=== PATIENT | female | born 1935 | race Caucasian/White ===

== ENCOUNTER 2025-03-21 06:14 | Inpatient (IN) | payer OTHER, SELFPAY ==
[2025-03-21] VITALS (77 sets, daily range): BP systolic 70–156; BP diastolic 38–83; PULSE 88; O2SAT 98; BMI 22.7; BMI 22.1
[2025-03-21] MEDS: CARDIZEM 125 IV (03:29)
[2025-03-21] MEDS: NSS 500 IV (03:30)
[2025-03-21 03:37] LABS: Hematocrit 31.6 % (37.0-47.0); Hemoglobin 10.8 g/dL (12.0-16.0); Mean Corp Hgb Conc. 34.2 g/dL (33.0-37.0); Mean Corpuscular Volume 87.5 fL (81.0-99.0); Nucleated Red Blood Cells % 0 %; Platelet Count 214 10^3/uL (130-400); Red Cell Dist. Width 15.0 % (11.5-14.5)
[2025-03-21 03:57] LABS: COVID-19 Antigen Negative (Negative)
[2025-03-21 04:00] LABS: ALT (SGPT) 73 U/L (0-35); AST (SGOT) 133 U/L (14-36); Albumin 2.5 g/dl (3.5-5.0); Alkaline Phosphatase 118 U/L (38-126); Blood Urea Nitrogen 21 mg/dl (7-17); Calcium 7.7 mg/dl (8.4-10.2); Carbon Dioxide 21 mmol/L (22-30); Chloride 101 mmol/L (98-107); Estimated Creatinine Clearance 27 ml/min; Glucose 216 mg/dl (70-99); Potassium 3.5 mmol/L (3.5-5.1); Sodium 130 mmol/L (135-145); Total Protein 5.1 g/dl (6.3-8.2); eGFR 54.53
[2025-03-21] MEDS: NSS 1000 IV (04:03)
[2025-03-21 04:18] LABS: Troponin I 0.112 ng/ml
--- NOTE | 2025-03-21 04:23 | ED.GENMED ---
History of Present Illness
General
Chief Complaint: Cardiac Symptoms
Source: patient, family (Daughter at bedside) and ambulance crew
Exam Limitations: none
Time Seen by Provider: 03/21/25 03:05
Nursing documentation reviewed up to this point in time: agreed with
History of Present Illness
History of Present Illness:
HISTORY OF PRESENT ILLNESS
The patient is an 89-year-old female with a history of recurrent pneumonia, chronic bronchitis/bronchiectasis, hypertension and atrial fibrillation chronically maintained on Xarelto. She reports that over the past couple of weeks, her heart rate has
been erratic, fluctuating up and down. She was evaluated by her PCP 1 week ago and recommended to stop her sotalol as well as amlodipine due to low heart rate and low blood pressure. She suffered a fall out of bed over 1 week ago and since then
has been complaining of neck pain, chest pain, low back pain, knee pain and underwent outpatient x-rays March 16 consisting of cervical spine, thoracic spine, lumbar spine, chest x-ray and right knee x-ray. X-ray results report no acute fracture.
Chronic interstitial lung disease. Since the fall she has been residing with her daughter locally. Patient normally resides independently in [place].
This evening she developed shaking chills and after daughter consulted with PCP on-call was recommended to take her temperature and she was noted to have a fever of nearly 102 �F. She was given Tylenol at that time.
Then early this morning she got up out of bed to go to the bathroom, daughter accompanying her. While sitting on the toilet patient became quite pale, diaphoretic and unresponsive, daughter states she was staring off into space' no seizure activity
nor fall
Upon EMS arrival patient found to be in rapid A-fib with heart rate 160-190 and hypotensive with systolic blood pressure of 80. Hypoxic with room air pulse ox of 88. For paramedics, patient was awake and alert, oriented x 3.
Given an IV fluid bolus prehospital, Cardizem 10 mg IV bolus.
She describes a persistent cough and a history of pneumonia, stating, 'I have been hospitalized with COVID and pneumonia three times.' Most hospitalizations were at [facility]. She denies chest pain with deep breath, nor with cough,
denies worsening cough, denies productive cough. She does not require oxygen at home.
She denies dysuria and urgency and or hematuria. Appetite has been fair throughout the week.
Tonight with onset of lethargy she developed significant nausea with 1 episode of vomiting.
The patient was previously tested for COVID-19, flu, last week at her PCP office, with all results returning negative.
As above, she has not been taking sotalol nor amlodipine this past week on advice of her PCP. She has however been compliant with daily Xarelto, compliant with her other medications and twice daily nebulizer treatments.
Past History
Past History
ED Past Medical History: Arrthythmia (Atrial fibrillation), COPD (Bronchiectasis), CVA, HTN, NIDDM and Other (Pneumonia, osteoporosis)
Social History
Tobacco: Non-smoker
Alcohol: None
Personal:
Living: alone
Employment: Retired
Family History
Family History: Other (Noncontributory)
Phy Exam
Physical Exam
Physical Exam:
GENERAL: 89-year-old somewhat thin, mildly frail appearing woman. She is bright and alert, oriented x 3, easily communicative and appears in no acute distress. Very mild resting tachypnea noted. Rare brief nonproductive cough is noted.
EYE: pupils equal and reactive
NECK: Supple, no significant adenopathy. No JVD.
ENT: Oral mucosa is dry.
CARDIAC: Irregularly irregular, tachycardic
LUNGS: Mild resting tachypnea, rhonchi and rales bilaterally more pronounced left lower lobe.
ABDOMEN: Soft, without focal tenderness, no r/g, no cvat
NEUROLOGICAL: Alert and oriented, no focal neuro deficits
SKIN: Warm and dry, skin intact.
MUSCULOSKELETAL: Trace pretibial edema bilateral lower extremities, well perfused.
PSYCH: Normal and appropriate interaction.
Sepsis
Sepsis Screening
Sepsis Assessment: Sepsis
Sepsis Screening: Lactate >2mmol/L and Hypotension
Sepsis Screen
Sepsis Screen: Sepsis
Date: 03/21/25
Time: 04:45
Course
Orders/Labs/Results
Orders:
Orders
03/21/25 03:02
EKG [Electrocardiogram (*1)] Urgent
Reason for Study: Palpitations
EKG- Treatment ONCE
03/21/25 03:25
COVID-19 Antigen Urgent
Source: Nasal Swab
Complete Blood Count/With Diff Urgent
Comprehensive Metabolic Panel Urgent
Lactic Acid Urgent
Lipase Urgent
Comment: ADD ON
NT-proBNP Urgent
Troponin I Urgent
Influenza A+B Rapid Molecular Urgent
PATTI Source: Nasal Swab
Specimen Description:
Date Specimen was Collected: 03/21/25
Time Specimen was Collected: 03:22
Respiratory Syncytial Virus Urgent
PATTI Source: Nasal Swab
Specimen Description:
Date Specimen was Collected: 03/21/25
Time Specimen was Collected: 03:22
03/21/25 03:26
Diltiazem 125 mg/125 ml Nss [Cardizem] 125 mg in 125 ml IV NOW
Initial dose in mg/hr, then titrate:: 5
Titrate to keep:: Heart rate 80-100 bpm
Titrate by mg/hr:: 5 mg/hr
Frequency of titrations (minutes):: 15
Maximum dose in mg/hr:: 15
03/21/25 03:28
0.9% Sodium Chloride 500 ml [Nss] 500 ml IV BOLUS
Diltiazem 125 mg/125 ml Nss [Cardizem] 125 mg in 125 ml .ROUTE .STK-MED
CR Chest Portable - 1 View Urgent
Comment:
Reason For Exam: SOB, tachycardia
Reason Study Needs to be Portable: Patient Unstable
03/21/25 03:42
Urinalysis Reflex To Culture Urgent
Date Specimen was Collected: 03/21/25
Time Specimen was Collected: 03:42
03/21/25 04:02
0.9% Sodium Chloride 1000 ml [Nss] 1,000 ml IV BOLUS
03/21/25 04:23
Add On- LAB Urgent
Tests Added?: lipase
03/21/25 04:38
Blood Culture Q30M
PATTI Source: Blood/Venous
Specimen Description:
Blood Culture Q30M
PATTI Source: Blood/Venous
Specimen Description:
03/21/25 04:58
Piperacillin/Tazo 3.375 Gram [Zosyn] 3.375 gram in 50 ml IV NOW
03/21/25 05:04
MRSA Screen Routine
PATTI Source: Nose
Specimen Description:
03/21/25 05:59
Admit/Transfer Patient As Directed
Co-Sign Provider:
Level of Care: Inpatient admission
Assign to:: IMU- Intermediate Care
Physician / Group: Kenny
Diagnosis: Uncontrolled afib
Reason for Hospitalization: Uncontrolled afib, ?sepsis
Expected length of stay greater than two midnights?: Yes
ELOS- Estimated Length of Stay in days: 2
I certify the patient meets the requirements for IP care: Yes
PRN Pain Medication Management As Directed
May give lesser potent ordered pain med per pt: Yes
preference::
Protocol:: Medication orders for pain may be administered in a
manner that supports deferring to patient preference
when the pt is:
- Requesting an ordered lesser potent pain medication.
Least to most potent pain medications are defined
as: acetaminophen < NSAID < tramadol < opioids
(morphine, oxycodone, hydromorphone).
- Requesting a lesser dose of the same medication IF
ORDERED.
- Requesting a less intrusive route of administration
if both routes are prescribed by the provider (PO <
IV).
03/21/25 06:00
Code Status As Directed
Resuscitation Status: Full Code
Abnormal Lab Results
03/21/25
03:25
RBC 3.61 L 10^6/uL
(4.20-5.40)
Hgb 10.8 L g/dL
(12.0-16.0)
Hct 31.6 L %
(37.0-47.0)
RDW 15.0 H %
(11.5-14.5)
MPV 11.2 H fL
(7.4-10.4)
Abs Immat Gran (auto) 0.1 H 10^3/uL
(0-0.05)
Absolute Neuts (auto) 8.4 H 10^3/uL
(1.4-6.5)
Absolute Lymphs (auto) 0.4 L 10^3/uL
(1.2-3.4)
Immature Gran % 0.6 H %
(0-0.5)
Neutrophils % 88.4 H %
(42.2-75.2)
Lymphocytes % 4.5 L %
(20.5-51.1)
Sodium 130 L mmol/L
(135-145)
Carbon Dioxide 21 L mmol/L
(22-30)
BUN 21 H mg/dl
(7-17)
Glucose 216 H mg/dl
(70-99)
Lactic Acid 3.0 H mmol/L
(0.7-2.0)
Calcium 7.7 L mg/dl
(8.4-10.2)
AST 133 H U/L
(14-36)
ALT 73 H U/L
(0-35)
Troponin I 0.112 H* ng/ml
Total Protein 5.1 L g/dl
(6.3-8.2)
Albumin 2.5 L g/dl
(3.5-5.0)
03/21/25 03:25
03/21/25 03:25
Vital Signs
Initial and Last Documented VS:
Initial Vital Signs
Temp Pulse Resp BP Pulse Ox
98.0 F 155 24 84/61 93
03/21/25 03:02 03/21/25 03:02 03/21/25 03:02 03/21/25 03:02 03/21/25 03:02
Last Documented Vital Signs
Temp Pulse Resp BP Pulse Ox
98.0 F 128 40 81/56 92
03/21/25 03:02 03/21/25 05:30 03/21/25 05:30 03/21/25 05:30 03/21/25 05:30
MDM/Problems Addressed
Differential Diagnosis Includes:
DIFFERENTIAL DIAGNOSIS
The Differential Diagnosis includes, in no particular order and is not limited to:
- Atrial Fibrillation with rapid ventricular response
- Traumatic injury following a fall
- Congestive heart failure
- Aspiration pneumonia
- Chronic obstructive pulmonary disease
- Pulmonary embolism
- Drug-induced tachycardia
- Respiratory tract infection
- Pneumonitis
- Musculoskeletal chest pain following trauma.
MDM/Problems Addressed:
PROBLEM LIST
Acute Problems:
- Atrial Fibrillation with Tachycardia
- Recent Fall with Resultant neck, back, chest pain, knee pain
- Cough with Negative Viral Test Results
Chronic Problems:
- Recurrent Pneumonia
- Bronchial Conditions
- Atrial fibrillation
Patient remains somewhat hypotensive with systolic blood pressure 80-100 but she remains bright and alert, easily communicative. Comfortable on nasal cannula oxygen.
Monitor shows atrial fibrillation with rapid ventricular response 140-160. At this point it is unknown if patient is chronically in A-fib versus paroxysmal A-fib.
With history of fever, discontinuing sotalol 1 week ago, concern for compensatory A-fib/tachycardia. Concern for sepsis with tachycardia and hypotension.
There is also concern for potential CHF however no prior history of CHF. PE is less likely, patient has been compliant with Xarelto.
Labs are pending including sepsis workup, troponin, BNP. With fever, cough, history of pneumonia, bronchiectasis will recheck COVID, flu, RSV.
Will initiate IV fluid bolus and Cardizem drip. Consider additional Cardizem bolus if BP acceptable.
At this point we will hold off on urgent cardioversion as I am unsure if patient is chronically in A-fib versus PAF.
Chronic conditions affecting care: DM, HTN, Arrhythmia and COPD
Acute Exacerbation and/or Progression of Chronic Illness: Arrhythmia and COPD
*Radiology
Radiology exam reviewed: preliminary read by ED provider (Chest x-ray shows bilateral interstitial lung disease with patchy infiltrate left lower lobe)
*Pulse Oximetry
SaO2: 95
Nasal Cannula flow liters per minute: 2
Patient hypoxic: yes
*EKG
Interpreted by ED Provider?: Yes
Interpretation: abnormal
Comparison EKG: no comparison EKG present
Rate: tachycardiac
Rhythm: a-fib
[place]: left axis deviation
Interval: normal QT interval
QRS Pattern: left vent hypertrophy
Ischemia: non-specific ST changes
*[employer] Interpretation
Rate: tachycardiac
Interpretation: abnormal
Rhythm: a-fib
*Critical Care Note
Total Time (30-74mins, 75-104mins- exclusive of procedures): 60
comment:
Critical care statement: A total of 60 minutes of critical care time was provided for this patient. This includes management of unstable vital signs, evaluation of the patient at bedside, reviewing the patient's pertinent medical records, discussion
with consultants, review of old EKGs and review of pertinent medical records. This time with separate from time utilized to perform the aforementioned documented procedures
Update Note
Update Note:
With IV fluid bolus and Cardizem drip, A-fib persists but improvement in tachycardia to now 108-140.
Systolic blood pressure 88-100.
Overall patient appears improved, resting comfortably.
Chest x-ray concerning for left lower lobe pneumonia.
Lactic acid elevated at 3.0.
Patient meets sepsis criteria.
Troponin elevated 0.112. Patient currently denies chest pain and EKG shows A-fib with rapid ventricular response, LVH, otherwise no evidence of STEMI.
Will initiate broad-spectrum antibiotics/Zosyn for coverage of pneumonia and admit to hospitalist service.
ED Attending Note
-
Portions of this chart may have been created with voice recognition software.� Occasional wrong word or��sound alike� substitutions may have occurred due to the inherent limitations of voice recognition software.
Discharge Plan
Departure
Patient Disposition: Admit
Date of Disposition: 03/21/25
Time of Disposition: 04:50
Admit to: ICU
Admit to doctor: Renee
Presentation/result/management discussed w/ accepting MD/DO: Hospitalist
Condition: Serious
Discharge Problem:
Atrial fibrillation with RVR, Left lower lobe pneumonia, Sepsis, Elevated troponin
Interventions
Interventions:
*Risk Screen - Suicide Last Done: 03/21/25 03:02
*General Assessment Last Done: 03/21/25 03:02
*Neglect/Abuse Screening Last Done: 03/21/25 03:02
*ED COVID-19 Vaccine History Last Done: 03/21/25 03:02
*ED Influenza Vaccine History Last Done: 03/21/25 03:02
[facility] Fall Risk Assessment Tool Last Done: 03/21/25 03:02
ED- Pulmonary Assessment Last Done: 03/21/25 04:32
ED- Cardiac Assessment Last Done: 03/21/25 04:32
[2025-03-21] MEDS: ZOSYN 50 IV ×4 (05:04→23:27)
--- NOTE | 2025-03-21 05:04 | HPS.HSE ---
Family Physician
-
Family Physician: PHYSICIAN PRIVATE
Chief Complaint
-
Patient with unresponsive episode and tachycardia
History of Present Illness
Patient is a 89-year-old currently unable to provide much history but according to chart has past medical history that is significant for atrial fibrillation on anticoagulation with Xarelto, takes sotalol for antiarrhythmics, and has hypertension,
hyperlipidemia, bhc-rlrrmyk-vpyayzevt diabetes, history of recurrent lung infections and pulmonary disease of uncertain etiology possibly chronic bronchiectasis was brought in by EMS after daughter found her unresponsive at home.
According to the daughter the patient was recently discharged from the hospital but has not been feeling well for some time. She seemed to declined about 1 week ago and was seen by her PMD after she had a fall. During that time she had a ongoing
productive cough and some shortness of breath and was placed on methylprednisone taper. She reportedly had a significant reaction to the prednisone causing her heart rate to be erratic sometimes tachycardic. Prednisone was tapered off quickly. It
was associated with bradycardic episode so her sotalol was discontinued. Amlodipine was also discontinued for low blood pressures. It is unclear whether she was on metoprolol or whether that was started or discontinued at that time. A chest x-ray
at that time shows chronic changes but no new infiltrates. She had no traumatic episode. Although sotalol was discontinued she was continued on Xarelto. Patient appears to have previously been in a normal sinus rhythm earlier in the year. The
daughter reported vital signs that was measured only for 50-67. She had blood pressures of 117/89 on the fourth with a heart rate of 123, 111/61 with a heart rate of 85 on the feet, 99/50 with a heart rate of 110 and 60, 120/60 with a heart rate of
84 on the seventh before she had chills and febrile illness.
Records indicate that she had a recent echocardiogram which showed a EF of 60% and a normal LV. Family knows of no prior history of CHF. She had negative COVID 19 flu and RSV test last week. And she has been staying with her daughter for the last
1 week due to her recent fall and weakness.
According to daughter, patient had shaking chills and feeling unwell. They contacted the physician who asked that they measure her temperature and she was found to have a fever to 101.9. She was given Tylenol and her symptoms improved. However
then found unresponsive and called EMS. When EMS arrived they found to be tachycardic to 190 and in atrial fibrillation. She was given a bolus of Cardizem which reduced the rate to the 160s and 150s. She was also given a small fluid bolus. She
was started on diltiazem drip on arrival in the emergency department.
In the ED when I saw the patient she was somnolent but easily arousable however too fatigued to provide any significant history. Blood pressure ranged from 79-100/ 42-61. She was tachycardic to the 120s to 150s. She was tachypneic to to low 30s.
Temperature was 98.0 and she was satting around 93% on 2 L. ECG shows atrial fibrillation with RVR at a rate of 149. Troponin was elevated at 0.112. BNP was also elevated at 4900. WBC was 9.5 hemoglobin 10.8 platelet of 214. Electrolytes show a
sodium of 130 with potassium of 3.5 bicarb of 21 with a BUN and creatinine of 21 and 1.0 and a glucose of 216.
Lactic acid was 3.0.
Medical History
Past Medical History
Past Medical History: Reports Arrhythmia (Atrial fibrillation), HTN, Hypercholesterolemia, NIDDM and Other (Bronchiectasis)
Past Surgical History: Reports Other (Unable to obtain)
Social History
Tobacco: Non-smoker
Alcohol: None
Drug: None
Living: With Family
Family History
Family History: Not pertinent
Allergies / Home Medications
Allergies reflects when Allergies were last updated in [employer].
Home Medications with original date entered in [employer]
Allergy/Medication List:
Allergies
Allergy/AdvReac Type Severity Reaction Status Date / Time
No Known Allergies Allergy Unverified 03/21/25 03:20
Home Medications
amlodipine 10 mg tablet 10 mg PO DAILY 03/21/25
aspirin 81 mg tablet 81 mg PO DAILY 03/21/25
atorvastatin 40 mg tablet 40 mg PO DAILY 03/21/25
metformin 500 mg tablet 500 mg PO .DINNER 03/21/25
metoprolol tartrate 25 mg tablet 25 mg PO BID 03/21/25
rivaroxaban 15 mg tablet (Xarelto) 15 mg PO DAILY 03/21/25
sotalol 80 mg tablet 80 mg PO DAILY 03/21/25
Review of Systems
-
Unable to obtain full review of systems at this time due to: Acuity
Physical Exam
Vital Signs
Vital Signs
Temp Pulse Resp BP Pulse Ox
98.0 F 151 33 79/42 88
03/21/25 03:02 03/21/25 04:00 03/21/25 04:00 03/21/25 03:55 03/21/25 04:32
Physical Exam
General: Respiratory Distress
HEENT: NormoCephalic, Anicteric, Moist mucous membranes and Oxygen
Respiratory: Crackles (posteriorly up to and above the midlungs, occasional wheeze) and Accessory Resp Muscle Use
Cardiac: S1/S2, Irregular Rhythm and Tachycardia
Breast: Deferred by me
GI: Soft, Non Tender, Non Distended and Normal Bowel Sounds
Rectal: Deferred by Provider
Genito-urinary: Deferred by me
Musculoskeletal: No Clubbing, No Cyanosis, Edema, Left Lower Extremity (Trace to 1+) and Edema, Right Lower Extremity (Trace to 1+)
Skin: Warm
Neuro: Awake and Nonfocal/grossly intact
Hematologic/Lymphatic: No Lymphadenopathy
Psych: Calm
Laboratory Results
-
03/21/25 03:25
03/21/25 03:25
Laboratory Results
Lactic Acid 3.0 mmol/L (0.7-2.0) H 03/21/25 03:25
Total Bilirubin 1.2 mg/dl (0.2-1.3) 03/21/25 03:25
AST 133 U/L (14-36) H 03/21/25 03:25
ALT 73 U/L (0-35) H 03/21/25 03:25
Alkaline Phosphatase 118 U/L (38-126) 03/21/25 03:25
Troponin I 0.112 ng/ml H* 03/21/25 03:25
Data Reviewed
-
Diagnostic Radiology: Image Personally Visualized and interpreted
Medical Tests (Nuc Med, Echo, EKG etc): Image Personally Visualized and interpreted
Lab Data: Labs Reviewed by me
Old Records: Reviewed
Impression/Plan
-
IMPRESSION:
89-year-old with history of atrial fibrillation on anticoagulation, hypertension, hyperlipidemia, history of recurrent pulmonary infections and bronchiectasis who presents to the emergency department in the setting of fever to 101.9 at home,
tachycardia with uncontrolled atrial fibrillation and low blood pressures in the 80s systolic. She has a significant degree of respiratory distress but is only using 2 L of supplemental oxygen to maintain sats of around 93 to 95%. Chest x-ray
shows interstitial changes which could be edema versus chronic lung disease. Also schedule was discontinued about 6 days ago, daughter reports vital signs at home which showed a stable heart rate mostly in the 80s although there was a location of
her heart rate of 123 on March 17. She had stable blood pressure at that time as well. It is unlikely that she has had tachycardia induced heart failure due to chronic atrial fibrillation. It is possible that she does have an acute tachycardia
induced heart failure versus infectious cardiomyopathy exacerbated by a fever and is now in uncontrolled A-fib with hemodynamic compromise. She has elevated BNP and trace peripheral edema suggestive of acute congestive heart failure although recent
echo shows a normal EF of 60% and no valvular abnormality with otherwise normal LV function.
PLAN:
Sepsis with respiratory distress, lactic acidosis, altered mental status possibly secondary to pneumonia but cannot rule out or urinary source at this time
- Admit to IMU
- Status post small bolus in the ambulance but reticent to give additional fluids at this time given x-ray and elevated BNP with trace peripheral edema suggestive of some volume overload and CHF
� Blood culture sent
� Negative viral studies
� Urine cultures pending
� Will start broad-spectrum antibiotics (zosyn started in ED, will continue for now), check Legionella and pneumococcal antigens
- not wheezing, and did not tolerate oral steroids due to poor rate control, can try iv steroids now that she is on diltiazem
Respiratory distress -oxygenating not requiring 2 L, still tachypneic to the 30s. Patient reports being told she had lung crackles all the time suggestive of chronic interstitial lung disease but new onset CHF is also likley.
� Antibiotics, supplemental oxygen and steroids
� Given elevated BNP chest concerns of congestive heart failure possibly due to uncontrolled atrial fibrillation but patient blood pressure cannot tolerate aggressive diuresis at this time
� Due to tachypnea may need BiPAP for increased work of breathing, will monitor for now in IMU
� Given history of bronchiectasis, will consult pulmonary
Uncontrolled atrial fibrillation -Sotalol discontinued by PMD due to bradycardia about 1 week ago. It is unclear whether metoprolol was also discontinued. Patient is anticoagulated on Xarelto
� Continue Xarelto
� Continue diltiazem drip and titrate as tolerated by the blood pressure, will continue at a rate of 5 for now
- Too unstable for cardioversion in the ED, but may be reconsidered, she has been well anticoagulated Xarelto with a last dose given yesterday.
CHF- Elevated BNP, trace edema, crackles. New onset CHF suggested. BP is soft and likely cannot tolerate diuresis
- oxygenation
- hold iv fluids
- pressors if needed to support bp
- echo
- cardiology consult
Elevated troponin -suspect NIMI secondary to underlying illness, hypoxia and uncontrolled tachycardia
- Patient is anticoagulated on Xarelto, last dose at 9pm yesterday
� aspirin 81
� Rate control
� Check PT/INR and trend troponin, if troponin is rising can transition to heparin drip
� Cardiology consultation
Diabetes
� Sliding scale insulin for now
DVT prophylaxis�on anticoagulation
CODE STATUS�
[2025-03-21 05:30] LABS: Lipase 195 U/L (23-300)
--- NOTE | 2025-03-21 08:05 | CON.INTV ---
Consultation
Consultation Request
Date/Time Consultation Requested: 03/21/2025
Date/Time Consultation Performed: 03/21/2025
Requesting Provider: Dr. Soares
Performing Provider: Dr. Jones
Reason for Consultation: Rapid A fib/Hypotension
Medical History
-
Chief Complaint: unresponsive + fast heart rate
History of Present Illness:
89-year-old female with a past medical history of A-fib on Xarelto, hypertension, hyperlipidemia, DM type II, history of ILD with recurrent lung infections and reported chronic bronchiectasis who presented with episode of unresponsiveness. Patient
had recently been hospitalized at outside hospital. Prior to arrival she was not feeling well and saw her PCP after a fall. She had been dealing with a cough + SOB. Placed onto a steroid taper which caused her BG to rise and heart rate to be
erratic. Prednisone quickly tapered off. Sotalol discontinued due to bradycardia. Norvasc discontinued due to hypotension. Patient follows with a correctional officer chief at [facility] with a Dr. Espinoza (per patient). In the ER she was hypotensive to
84/61, tachycardic to 155, respiratory rate 24, and saturating 93% on 2 L/min. INR 4.15, sodium 130, glucose 216, lactate 3.0, troponin 0.112, procalcitonin 0.27, COVID-19 antigen negative, and flu swab negative as well as RSV negative. Blood
cultures were collected. CXR showed retrocardiac opacification due to aspiration versus fibrosis versus pneumonia. Given 1.5 L bolus NS 0.9% in the ER + Zosyn and started on Cardizem drip and admitted to the ICU. Ui Application Developer service consulted for
additional management/recommendations.
Patient seen and evaluated this morning. Currently on 2 L/min nasal cannula saturating 97%, HR labile between 105�120 and BP 100/63. She says she is feeling well, currently denying chest pain, SOB, abdominal pain, nausea, fevers or chills. She
reports that she follows with a correctional officer chief at [facility] (Dr. Espinoza), and she is not exactly sure what chronic lung disease she has but she believes that she was told she has hypersensitivity pneumonitis.
PMHx: A-fib, hypertension, hypercholesterolemia, DM type II, history of bronchiectasis/ILD
PSHx: Non-contributory
Past Medical History
Past Medical History: Other (Above as per HPI)
Past Surgical History: Other (Above as per HPI)
Social History
Tobacco: Non-smoker
Alcohol: None
Drug: None
Living: With Family
Family History
Family History: Reviewed & Not Pertinent
Allergies / Home Medications
Allergies
Allergy/AdvReac Type Severity Reaction Status Date / Time
No Known Allergies Allergy Unverified 03/21/25 03:20
Home Medications
�Medication �Instructions �Recorded �Confirmed �Last Taken �Type
amlodipine 10 mg tablet 10 mg PO DAILY Blood Pressure 03/21/25 03/21/25 2 Weeks Ago History
~03/07/25
aspirin 81 mg tablet 81 mg PO DAILY Heart 03/21/25 03/21/25 Unknown History
Disease/Condition
atorvastatin 40 mg tablet 40 mg PO HS High Cholesterol 03/21/25 03/21/25 Unknown History
budesonide 0.25 mg/2 mL suspension 0.25 mg inhalation R BID 03/21/25 03/21/25 Unknown History
for nebulization Lung/Breathing Issues
cyanocobalamin (vitamin B-12) 1,000 mcg PO DAILY Supplement 03/21/25 03/21/25 Unknown History
1,000 mcg tablet
docusate sodium 100 mg capsule 100 mg PO BIDPRN PRN constipation 03/21/25 03/21/25 Unknown History
(Colace)
ipratropium 0.5 mg-albuterol 3 mg 3 ml inhalation R TID 03/21/25 03/21/25 Unknown History
(2.5 mg base)/3 mL nebulization Lung/Breathing Issues
soln
metformin 500 mg tablet 500 mg PO QPM Diabetes 03/21/25 03/21/25 Unknown History
rivaroxaban 15 mg tablet (Xarelto) 15 mg PO QPM Blood Clot 03/21/25 03/21/25 Unknown History
Prevention/Tx
sotalol 80 mg tablet 80 mg PO DAILY Arrhythmia 03/21/25 03/21/25 2 Weeks Ago History
~03/07/25
thiamine HCl (vitamin B1) 100 mg 100 mg PO DAILY Supplement 03/21/25 03/21/25 Unknown History
tablet
Review of Systems
-
History Source: Patient
All other systems: Negative unless noted
Vitals / Labs / Diagnostic Testing
Vital Signs
Temp Pulse Resp BP Pulse Ox
96.2 F L 103 16 99/74 97
03/21/25 08:46 03/21/25 10:15 03/21/25 10:15 03/21/25 10:15 03/21/25 10:15
Lab Data
03/21/25 09:05
03/21/25 09:05
Laboratory Results
03/21/25
09:05
PT 40.4 H
INR 4.15
APTT 47.1 H
Microbiology
03/21/25 08:21 Urine Legionella Urinary Antigen - Final
Negative for Legionella pneumophila Serogroup 1 antigen.
A negative result does not rule out the possiblity of
Legionella infection due to other serogroups or species of
Legionella. Clinical correlation is recommended.
03/21/25 08:21 Urine Streptococcus pneumoniae Antigen (M - Final
Negative for Streptococcus pneumoniae antigen.
A negative result does not exclude infection with
Streptococcus pneumoniae. Clinical correlation is
recommended.
03/21/25 03:25 Nasal Swab Respiratory Syncytial Virus Ag - Final
Negative for Respiratory Syncytial Virus.
A false negative result may be obtained with a specimen
collected early in the acute phase. If symptoms persist, a
new specimen should be tested.
03/21/25 03:25 Nasal Swab Influenza Types A & B (TRAY) - Final
Negative for Influenza A & B, NAAT
Negative results must be combined with clinical observations
and patient history.
Nucleic Acid Amplification test (NAAT)performed on the
[employer] platform.
Diagnostic Testing:
Physical Exam
-
HEENT: Normocephalic and Anicteric
Cardiovascular: Irregular Rhythm (irregularly irregular), Peripheral Edema (negative) and Other (tachycardic)
Respiratory: Wheeze (negative), Rales (bilateral), Rhonchi (negative) and Non-Labored Respirations
GI: Soft, Non Distended, Non Tender and Normal Bowel Sounds
Neurology: Awake, Alert and Tremors (negative)
Skin: Warm and Dry
General: Respiratory Distress (negative), Comfortable, Fever (negative) and Chills (negative)
Assessment
-
Assessment: 89-year-old female with a past medical history of A-fib on Xarelto, hypertension, hyperlipidemia, DM type II, history of ILD with recurrent lung infections and reported chronic bronchiectasis who presented with episode of
unresponsiveness. Patient had recently been hospitalized at outside hospital. Prior to arrival she was not feeling well and saw her PCP after a fall. She had been dealing with a cough + SOB. Placed onto a steroid taper which caused her BG to
rise and heart rate to be erratic. Prednisone quickly tapered off. Sotalol discontinued due to bradycardia. Norvasc discontinued due to hypotension. Patient follows with a correctional officer chief at [facility] with a Dr. Espinoza (per patient). In the ER
she was hypotensive to 84/61, tachycardic to 155, respiratory rate 24, and saturating 93% on 2 L/min. INR 4.15, sodium 130, glucose 216, lactate 3.0, troponin 0.112, procalcitonin 0.27, COVID-19 antigen negative, and flu swab negative as well as
RSV negative. Blood cultures were collected. CXR showed retrocardiac opacification due to aspiration versus fibrosis versus pneumonia. Given 1.5 L bolus NS 0.9% in the ER + Zosyn and started on Cardizem drip and admitted to the ICU. Ui Application Developer
service consulted for additional management/recommendations.
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
Impression:
#Rapid A-fib requiring Cardizem drip
#Hypotension due to above
#Retrocardiac opacification with concern for aspiration pneumonia in setting of unresponsiveness IT SERVICE TECHNICIAN
#Acute respiratory failure with hypoxia with concern for pneumonia and possible ILD flare
#Anemia
#Hyponatremia
#DM type II c/b hyperglycemia
#Hypomagnesemia
#Transaminitis
#Elevated troponin likely due to demand ischemia in the setting of rapid A-fib
Plan:
- Wean down Cardizem drip and start PO cardizem 30mg QID with holding parameters
- Perhaps she has developed A-fib with RVR as she is now off of sotalol for the past 2 weeks
- Cardiology consulted and recs appreciated
- Follow up echo
- Rate control with goal HR<110
- Replete K>4, Mg>2
- Check TSH with reflex to free T4
- Trend troponin until it peaks - she currently denies chest pain or SOB, and she actually feels improved
- Maintain SpO2 >90-94% while weaning down submental O2 flow rate as tolerated
- prn nebulized bronchodilators - patient not currently bronchospastic
- Continue systemic steroids, weaning down as she clinically improves - given her low BMI, reduce decadron from 4mg IV q8hr to 4mg q12hr
- Maintain euglycemia with goal BG 140-180mg/dL; check A1C
- Obtain medical records from her PCP, in addition to her lung doctor and windshield technician, in addition to previous chest imaging and prior cardiac studies
- Given that she was unresponsive prior to arrival and has a retrocardiac opacity, agree with empiric antibiotics with Zosyn as there is a high likelihood that she aspirated
- Monitor temperature curve and trend WBC
- Follow-up blood cultures; check sputum culture (if patient can produce a decent sample); urine antigens for Legionella + strep pneumonia both negative
- Maintain MAP>65, may need to start vasopressors if MAP<65
- If HR remains elevated despite cardizem gtt, then would start amiodarone gtt dhruv while hypotensive
- Check random cortisol (added to morning labs before decadron was given)
- Trend H/H and transfuse if needed to keep Hb >7-8g/dL; keep plt>10-20k, unless there is concern for bleeding then keep plt>50k
- Incentive spirometer encouraged q1hr while awake
- Early nutrition assuming not on high dose vasopressors given risk of gut ischemia
- Early ambulation if/when clinically stable
- DVT ppx: xarelto
Code status: Full code
The [id number], Shantal (who works as a nurse at a [employer]), was present at bedside, and all questions were answered to her satisfaction.
Continue ICU level of care for this critically ill patient
Patient was seen and evaluated on 03/21/2025 Critical care statement: A total of 40 minutes of critical care time was provided for this patient today. This includes management of unstable vital signs, evaluation of the patient at bedside, reviewing
the patient's pertinent medical records including radiographs, microbiology, laboratory evaluations, and discussion with the primary team, consultants, pharmacy, nutrition, physical therapy, case management, charge nurse, critical care nursing, and
respiratory therapy.
[2025-03-21 08:32] LABS: Urine Character Clear (Clear)
[2025-03-21 08:49] LABS: Urine Red Blood Cell 0-2 /HPF (0-2); Urine Squamous Cell >30 /LPF (Few)
[2025-03-21 08:57] LABS: Glucose - Point of Care 202 mg/dl (70-99)
[2025-03-21 09:23] LABS: Hematocrit 31.5 % (37.0-47.0); Hemoglobin 10.7 g/dL (12.0-16.0); Mean Corp Hgb Conc. 34.0 g/dL (33.0-37.0); Mean Corpuscular Volume 88.0 fL (81.0-99.0); Platelet Count 204 10^3/uL (130-400); Red Cell Dist. Width 15.3 % (11.5-14.5)
[2025-03-21 09:34] LABS: Magnesium 1.5 mg/dl (1.6-2.3)
[2025-03-21 09:35] LABS: APTT 47.1 Sec (23.4-35.0); INR 4.15; PT 40.4 Sec (11.4-14.6)
--- NOTE | 2025-03-21 09:45 | PTCARENOTE ---
Rec'd patient from ED around 0845. Patient alert and oriented. YOMBA SHOSHONE. MAEx4. Afib, 80-110's. Cardizem gtt infusing at 5 mg/hr. BP ranging 90-100/60-70's. +1 edema in b/l ankle. Palpable pulses. Pulse ox 95-97% on 2L nc. Scattered crackles throughout.
MADRID. Occasional, dry cough. +BS. Straight cath'd in ED. Labs sent as ordered.
[2025-03-21 09:59] LABS: Troponin I 0.221 ng/ml
[2025-03-21 10:02] LABS: Procalcitonin 0.27 ng/ml (0.0-0.25)
--- NOTE | 2025-03-21 10:13 | CON.CAR ---
Addendum entered and electronically signed by Cornelius Mendez MD 03/21/25 12:32:
89-year-old woman with a history of atrial fibrillation, who had recently been maintained on sotalol, Xarelto, hypertension, interstitial lung disease, history of carotid stenting and diabetes. Patient has not felt well for the last couple weeks.
Had been on prednisone due to respiratory issues and then it seems as if there was some concerns regarding low heart rates and sotalol was discontinued by PCP. Patient presented yesterday after having an episode of decreased loss of consciousness.
Episode occurred while patient was being assisted in the bathroom patient felt dizzy and shortness of breath and had decreased level of consciousness. Patient felt presyncopal. On initial assessment patient noted to have A-fib with RVR and
associated hypotension. Although also febrile with temp 102. Patient given IV fluids with improvement in blood pressure and placed on IV Cardizem with improvement in heart rates. Patient now admitted to the ICU heart rates in the low 100s on IV
Cardizem. Patient states she feels much better. Not currently reporting shortness of breath.
.
A-fib with RVR. Patient with prior history of A-fib. Patient has been maintained on sotalol for a number of years. There was a brief period after a hospitalization where she was on amiodarone which was then discontinued because she was still in
A-fib posthospitalization and there was concern regarding her underlying lung disease and continued use of amiodarone. Most recently patient has been on sotalol. Heart rate has been relatively slow in sinus rhythm with prior monitor showing average
heart rate of 52 bpm and it seems as if there was concern for even slower heart rates on recent visit with PCP (full details not available). This prompted discontinuation of sotalol and patient presented with A-fib with RVR. Heart rates now
reasonably controlled. I reviewed issues with her primary billing rep who thinks that the patient tends to do better when she is rhythm controlled but thinks we may not be able to use sotalol due to concerns about bradycardia. Based on the above we
will proceed as follows
- Continue with rate control of A-fib using Cardizem
- Continue anticoagulation
- Echocardiogram
- Monitor renal function. As patient recovers we can determine what additional options there are for management of her A-fib. Dofetilide could be a consideration to maintain sinus rhythm and avoid bradycardia. This was raised by her primary
billing rep. However with patient's recent increase in creatinine and most recent QTc I would not start dofetilide at this time. Will continue to discuss options as patient recovers. Follow-up ECG in a.m.
.
Anticoagulation continue anticoagulation with Xarelto
.
? Pneumonia. Reported fever at home greater than 101.
-Patient with underlying lung disease. Extent unclear. Additional management as directed by curtain framer
- Continue antibiotics as directed by hospitalist and pulmonary/critical care
- Monitor blood cultures pending
.
Elevated troponin. Suspect non-SD troponin in setting of infection and A-fib with RVR
- Echo
Original Note:
Consultation
Consultation Request
Date/Time Consultation Requested: 03/21/25 0841
Date/Time Consultation Performed: 03/21/25 1000
Requesting Provider: Dr. Cox
Performing Provider: Shirley PEREZ for Dr. Mendez
Reason for Consultation: AFIB with RVR, elevated troponin, possible CHF
Medical History
-
Chief Complaint: decreased LOC episode
History of Present Illness:
89 y/o female with AFIB on Xarelto (hx persistent, but previously on sotalol- d/ 2 weeks ago per patient due to bradycardia), hypertension, lung disease including ILD, carotid stenosis with L sided stent, and, DM2. She is here for evaluation after
she was being helped to the toilet by her daughter who she is staying with and felt dizzy and SOB and developed decreased LOC. She felt like she might pass out, but reports that she did not. She was seen to be in AFIB with RVR with hypotension. She
was given fluids and IV diltiazem. Additionally, she was having fever (102) and chills at home. Recently, about 2 weeks ago she reports she fell (feet got caught on something). She had some msk pain with this. She saw her PCP. She said they
suggested ER, but she preferred not at the time. She was placed on prednisone recently as well. She reports that her HR was noted to be slow on her O2 monitor so sotalol was stopped by PCP. Amlodipine was also stopped. At the time of my assessment,
she is calm and comfortable with both HR and SBP in 100's. She is feeling much improved. She is admitted for sepsis possibly secondary to PNA. She is on O2 by AR. She has received fluids and ABX. Lactic acid was 3, now normalized, procal elevated as
well. Troponin elevated 0.221; denies any CP. BNP elevated as well, but does not appear obviously volume overloaded to my assessment. Denies hx CHF. Her billing rep is Dr. David ([facility] [place]).
Past Medical History
Past Medical History: Arrhythmias, HTN, Hypercholesterolemia, NIDDM and Other (ILD)
Social History
Living: Other (staying with daughter)
Family History
Family History: Reviewed & Not Pertinent
Allergies / Home Medications
Allergy/AdvReac Type Severity Reaction Status Date / Time
No Known Allergies Allergy Unverified 03/21/25 03:20
�Medication �Instructions �Recorded �Confirmed �Type
amlodipine 10 mg tablet 10 mg PO DAILY Blood Pressure 03/21/25 03/21/25 History
aspirin 81 mg tablet 81 mg PO DAILY Heart 03/21/25 03/21/25 History
Disease/Condition
atorvastatin 40 mg tablet 40 mg PO HS High Cholesterol 03/21/25 03/21/25 History
budesonide 0.25 mg/2 mL suspension 0.25 mg inhalation R BID 03/21/25 03/21/25 History
for nebulization Lung/Breathing Issues
cyanocobalamin (vitamin B-12) 1,000 mcg PO DAILY Supplement 03/21/25 03/21/25 History
1,000 mcg tablet
docusate sodium 100 mg capsule 100 mg PO BIDPRN PRN constipation 03/21/25 03/21/25 History
(Colace)
ipratropium 0.5 mg-albuterol 3 mg 3 ml inhalation R TID 03/21/25 03/21/25 History
(2.5 mg base)/3 mL nebulization Lung/Breathing Issues
soln
metformin 500 mg tablet 500 mg PO QPM Diabetes 03/21/25 03/21/25 History
rivaroxaban 15 mg tablet (Xarelto) 15 mg PO QPM Blood Clot 03/21/25 03/21/25 History
Prevention/Tx
sotalol 80 mg tablet 80 mg PO DAILY Arrhythmia 03/21/25 03/21/25 History
thiamine HCl (vitamin B1) 100 mg 100 mg PO DAILY Supplement 03/21/25 03/21/25 History
tablet
Review of Systems
-
History Source: Patient
All other systems: Negative unless noted
Constitutional: Fever and Chills
Respiratory: Trouble Breathing
Neurological: Dizzy
Physical Exam
Vital Signs
Temp Pulse Resp BP Pulse Ox
96.2 F L 92 34 106/70 94
03/21/25 08:46 03/21/25 09:30 03/21/25 09:30 03/21/25 09:30 03/21/25 09:46
Lab Results
03/21/25 09:05
Troponin I 0.221 ng/ml H* D 03/21/25 09:05
Eej-Z-Cpvpgewcnip Pept 4940 pg/ml 03/21/25 03:25
Physical Exam
General: Well Developed, Well Nourished and No Apparent Distress
HEENT: Normocephalic and Anicteric
Respiratory: Wheezes (right base expiratory) and Crackles (dry L base)
Cardiac: Irregular Rhythm
Musculoskeletal: No Edema
Skin: Warm and Dry
Neuro: AO x 3
Psych: Calm
Impression / Plan
-
Sepsis secondary to possible PNA:
-also assessing for other infectious source
-this diagnosis is threat to life
-on ABX
-management per intensivists/primary team
Persistent AFIB: fast rates in setting of acute illness and off usual medications
-maintained on sotalol as OP, but recently stopped by PCP per patient since HR on her O2 sat monitor read in the 20's per her report- I suspect this could have been erroneous, but will follow telemetry.
-On IV diltiazem, but being changed to PO- monitor rates with this, may need IV
-continue Xarelto- she reports no missed doses
ILD:
-follows with Pulmonary at [facility]
-pulm/intensivists on case
-on O2 by NC
Elevated BNP:
-she does not appear obviously volume overloaded to my assessment; no weight gain, orthopnea, edema
-check echo and monitor volume
-most recent echo 11/26/24: normal LV function EF 60%, no sig valve disease reported
Abnormal troponin:
-acute, non-ischemic myocardial injury in setting of AFIB with RVR and sepsis
-trend to peak
-obtain echo
Data Reviewed
-
EKG: Tracing Personally Visualized and interpreted
Radiology: Report Reviewed by me (CXR: 1. Findings suggestive of moderate interstitial fibrosis. 2. Hazy opacity at the left lung base. Differential diagnosis includes pneumonia, aspiration, and focal interstitial fibrosis.)
Medical Tests (Nuc Med, Echo etc): Report Reviewed by me (Echo ordered and pending)
Labs: Labs Reviewed by me
Old Records: Reviewed (from [employer] link- Dr. David office note 01/12/25- seen by Kathy Sanon NP)
[2025-03-21 10:23] LABS: Blood Urea Nitrogen 23 mg/dl (7-17); Calcium 7.9 mg/dl (8.4-10.2); Carbon Dioxide 25 mmol/L (22-30); Chloride 104 mmol/L (98-107); Estimated Creatinine Clearance 27 ml/min; Glucose 198 mg/dl (70-99); Potassium 3.9 mmol/L (3.5-5.1); Sodium 132 mmol/L (135-145); eGFR 54.53
[2025-03-21] MEDS: NOVOLOG FLEXPEN-LOW RESISTANCE 1 UNITS SC (11:17)
[2025-03-21 11:29] LABS: Glucose - Point of Care 198 mg/dl (70-99)
[2025-03-21] MEDS: DECADRON 4 MG IV ×2 (11:56→20:01)
[2025-03-21] MEDS: MAGNESIUM SULFATE 50 IV (11:56)
[2025-03-21] MEDS: COLACE 100 MG PO (12:05)
[2025-03-21] MEDS: CARDIZEM 30 MG PO ×3 (12:05→23:25)
--- NOTE | 2025-03-21 12:45 | PTCARENOTE ---
PT at bedside. OOB to chair with RW. Pulse ox 98% on 2L nc. Weaned to RA. Oxygen down to mid 80's with ambulation. MADRID. Slow to recover. Utilizing IS frequently. PO Cardizem administered. Cardizem gtt off. Mag repleted. MEAT MANAGER in to assess patient at
bedside. Plan for VSE.
[2025-03-21 13:25] LABS: Cortisol, Random 49.2 ug/dl
--- NOTE | 2025-03-21 13:34 | W.PN.HOSP.TC ---
Today's Communication/Plan
-
Video Swallow, continue antibiotics, echo pending
Assessment / Plan
Assessment / Plan
Impression:
patient is 89-year-old woman with a history of atrial fibrillation on Xarelto, previously maintained on sotalol, hypertension, interstitial lung disease, diabetes, and prior carotid stenting presented after an episode of near-syncope and decreased
responsiveness. According to her daughter, the patient had been feeling unwell for approximately one week following a recent hospitalization and fall. She was treated with a methylprednisolone taper for respiratory symptoms but developed erratic
heart rates, including bradycardia, leading to discontinuation of sotalol and amlodipine. Over the past several days, she experienced intermittent fevers, chills, and worsening fatigue. On the day of admission, she was found unresponsive at home;
EMS noted atrial fibrillation with rapid ventricular response (HR ~190) and hypotension. She received IV fluids and a bolus of diltiazem, followed by a continuous infusion, with improvement in heart rate. In the ED, she remained somnolent but
arousable, tachycardic (HR 120�150), hypotensive (BP 79�100/42�61), tachypneic (RR low 30s), and hypoxic (SpO? 93% on 2 L). She was febrile earlier at home (101.9�F) but afebrile on arrival. Labs revealed elevated troponin (0.112), BNP (4900),
lactic acid (3.0), mild hyponatremia (Na 130), and anemia (Hgb 10.8). ECG confirmed atrial fibrillation with RVR. Chest imaging showed chronic changes without acute infiltrates. She was admitted to the ICU for rate control and hemodynamic monitoring.
When I saw the patient in the ER her blood pressure and heart rate improved, and she is more awake and oriented.
Assessment/plan:
Atrial Fibrillation with Rapid Ventricular Response
Patient with a history of atrial fibrillation previously managed with sotalol, which was discontinued recently due to bradycardia.
She presented with A-fib with RVR and hypotension.
Heart rate is now reasonably controlled on IV diltiazem.
Continue rate control with Cardizem drip, titrate as tolerated by blood pressure.
Maintain anticoagulation with Xarelto.
Obtain echocardiogram (pending)
monitor renal function.
Cardiology consulted appreciate input.
Sepsis with acute organ dysfunction
Sepsis secondary to pneumonia with acute organ dysfunction in form of acute respiratory failure/acute metabolic encephalopathy/lactic acidosis
Initially plan was to admit to IMU for close monitoring. But secondary to hypotension. Patient admitted to the ICU.
Reported fever >101�F at home in the setting of chronic lung disease.
Continue broad-spectrum antibiotic
(Zosyn started in ED), monitor blood cultures, and check Legionella and pneumococcal antigens.
Pulmonary consultation requested. Consider IV steroids now that rate control has improved.
Mental status improved.
Lactic acid resolved
Acute respiratory failure
Patient remains tachypneic with RR in the 30s, requiring supplemental oxygen.
Elevated BNP and crackles suggest new-onset CHF, likely precipitated by uncontrolled atrial fibrillation.
Avoid aggressive diuresis due to soft blood pressure.
Monitor for need of BiPAP. Pulmonary consulted for underlying bronchiectasis and interstitial lung disease.
Acute congestive Heart Failure (nonspecific type, combined)
New onset suspected based on elevated BNP, trace edema, and crackles.
Hold IV fluids, provide oxygen, and consider pressors if hypotension persists.
Echocardiogram pending
Cardiology consulted.
Elevated Troponin
Likely non-ischemic myocardial injury secondary to sepsis, hypoxia, and tachycardia.
Continue anticoagulation,
continue to trend troponin.
Cardiology following.
History of diabetes mellitus
Continue home medication
Insulin sliding scale
Diabetic diet
Hemoglobin A1c
CODE STATUS: Full code
DVT prophylaxis: Xarelto
Diet: DM diet
Disposition: Video Swallow, continue antibiotics, echo pending
Total time spent on today's encounter was 65 minutes which included time spent in counseling the patient/family regarding diagnosis and treatment plan as listed above, goals of care, and symptom management. Case was discussed with nursing staff,
specialists, and care coordinators/case management. All labs and imaging personally reviewed by me. Remainder the time spent in detailed review of previous records, lab data, imaging, and other medical provider documentation.
Anticipated Discharge: > 48 hours
Subjective/Interval History
-
Date of Service: March 21, 2025
Patient seen and examined at bedside, denies any chest pain , patient still in A-fib, she stated that her shortness of breath Improved, no abdominal pain, no nausea, no vomiting, no diarrhea or constipation.
lower extremity edema improved.
Objective Data
-
Labs:
Laboratory Results
03/21/25 03/21/25
03:25 09:05
WBC 9.5 7.2
Hgb 10.8 L 10.7 L
Hct 31.6 L 31.5 L
Plt Count 214 204
PT 40.4 H
INR 4.15
APTT 47.1 H
Sodium 130 L 132 L
Potassium 3.5 3.9
Chloride 101 104
Carbon Dioxide 21 L 25
BUN 21 H 23 H
Creatinine 1.0 1.0
Glucose 216 H 198 H
Calcium 7.7 L 7.9 L
Total Bilirubin 1.2
AST 133 H
ALT 73 H
Alkaline Phosphatase 118
Vital Signs:
Vital Signs
Temp Pulse Resp BP Pulse Ox
96.2 F L 106 21 93/57 94
03/21/25 08:46 03/21/25 13:00 03/21/25 13:00 03/21/25 13:00 03/21/25 13:00
I&O
03/20/25 03/21/25 03/22/25
06:59 06:59 06:59
Intake Total 360 / 360
Balance 360 / 360
Physical Exam
-
General: Well Developed, Well Nourished, No Apparent Distress and Comfortable
HEENT: Normocephalic, Atraumatic, Moist Mucous Membranes, No Ptosis, PERRLA and Nose Appears Normal
Respiratory: Rales, Rhonchi, Crackles and Non Labored Respirations
Cardiac: S1/S2 and Irregular Rhythm
Breast: Deferred by me
GI: Soft, Nontender, Nondistended and Normal Bowel Sounds
Genito-urinary: No Costovertebral Tender
Musculoskeletal: No Clubbing, No Cyanosis and No Edema
Skin: Warm
Neuro: Awake, Alert, Oriented, AO x 3 and No Motor Deficits
Psych: Calm
Data Reviewed
-
Diagnostic Radiology: Image personally visualized and interpreted and Report Reviewed by me
CT Scan: Image personally visualized and interpreted and Report Reviewed by me
Ultrasound: Image personally visualized and interpreted and Report Reviewed by me
MRI: Image personally visualized and interpreted and Report Reviewed by me
Medical Tests (Nuc Med, Echo etc): Image personally visualized and interpreted and Report Reviewed by me
Labs: Labs Reviewed by me
Old Records: Reviewed
--- NOTE | 2025-03-21 14:01 | CM ---
Reviewed chart and met with pt, her daughter and JOCELYN bedside in ICU. Pt lives alone in 2 story plus basement home in [place], total of [address], does have railings, has stair glide to second floor bedroom and bath.
Independent in ADLs, personal care and ambulation at baseline. Does have RW but does not normally use it,per daughter her balance has been poor recently.
Pt had a fall last Friday and has been staying with her daughter in [place]. Her house is split level, 1 ELKE, 3 steps down to FR, 3 steps up to kitchen and 3 more steps up to BR level. There is a half bath on FR level.
Confirms prescription coverage.
Hx VN in past and also SNF this past summer, ?[facility] in [place].
Pt's goal is to return to her home. Son German is POA, .
PCP: Chau Escalona
Pharmacy: [facility], would use [facility] in [place] while she is staying with her daughter.
CM will continue to follow for all discharge planning needs.
[2025-03-21] MEDS: DUONEB INH (14:10)
--- NOTE | 2025-03-21 14:13 | PTOTSP ---
Speech Therapy Evaluation:
Pt with chronic risk factors of dysphagia including hx of recurrent lung infections and pulmonary disease of uncertain etiology. Per daughter, pt with hx of choking events. VSE at OSH within the last year unremarkable. Now admitted with concern for
PNA/aspiration. WBC WNL and pt on room air, however procalcitonin elevated.
Recommend:
1. Diet downgrade to IDDSI Level 6 (soft and bite sized solids), continue thin liquids
2. Medications as tolerated
3. Strict aspiration and reflux precautions
4. VSE (to be completed this afternoon)
5. Further recommendations pending VSE
[2025-03-21] MEDS: NOVOLOG FLEXPEN-LOW RESISTANCE 2 UNITS SC (15:19)
[2025-03-21 15:30] LABS: Glucose - Point of Care 238 mg/dl (70-99)
--- NOTE | 2025-03-21 15:51 | PTOTSP ---
Speech Therapy VSE:
Patient presents with mild oropharyngeal dysphagia. Trace transient laryngeal penetration (PAS 2) occurred with thin liquids via cup. Deep laryngeal penetration (PAS 5) occurred with consecutive straw sips. No aspiration seen throughout the study.
Mild-moderate pharyngeal residue present, which patient was able to clear with subsequent swallows. Esophageal screen unremarkable per PA-C.
Recommend:
1. Continue IDDSI Level 6 (soft and bite sized solids) and thin liquids
2. Meds as tolerated
3. Strategies: Upright all meals, small bites/sips, single sips only (no consecutive sips), slow rate, chew thoroughly, dry swallows to increase pharyngeal clearance
4. Strict aspiration precautions
5. Supervision with meals
6. BARREL BRIDGE ASSEMBLER to follow to provide further education re: results and recommendations following VSE, to assess toelrance of diet, and to provide instruction in aspiration precautions/strategies
[2025-03-21 16:32] LABS: Troponin I 0.160 ng/ml
--- NOTE | 2025-03-21 16:45 | PTCARENOTE ---
VSE completed. Patient placed back in bed for echo. Resting comfortably. No other changes. Afib, rate in the 90-110's.
[2025-03-21] MEDS: NOVOLOG FLEXPEN-LOW RESISTANCE 3 UNITS SC (17:22)
[2025-03-21 17:34] LABS: Glucose - Point of Care 279 mg/dl (70-99)
[2025-03-21] MEDS: XARELTO 15 MG PO (18:14)
[2025-03-21] MEDS: DUONEB 3 ML INH (19:59)
[2025-03-21] MEDS: PULMICORT 0.25 MG INH (19:59)
[2025-03-21] MEDS: NOVOLIN N vial 0.08 UNITS SC (20:00)
--- NOTE | 2025-03-21 20:00 | PTCARENOTE ---
Pt ambulated to bathroom with previous shift nurse with rolling walker. Patient did fine on her feet but once in bathroom became extremely dyspneic/anxious/coughing fit. Pt felt as though she had something stuck in her throat. Was able to clear.
However, patient guided back to bed and given respiratory treatment. Bedside commode provided for further toileting needs. Will monitor.
[2025-03-21 20:11] LABS: Glucose - Point of Care 327 mg/dl (70-99)
[2025-03-22] VITALS (24 sets, daily range): BP systolic 92–144; BP diastolic 50–117; BMI 22.5
--- NOTE | 2025-03-22 00:03 | PTCARENOTE ---
Pt alert and oriented, pleasant and cooperative. Minimal assist to BSC for toileting needs. Tachycardia with activity, controlled 80-90 at rest with cardizem on board. Pulses palpable, no edema. Nasal cannula, 96%. Rales throughout, IS encouraged
and compliant. Tolerating diet. Voids in commode. Will monitor. Call ty within reach.
--- NOTE | 2025-03-22 00:05 | PTCARENOTE ---
Pt alert and oriented, cooperative. Afebrile. Afib on monitor. Pulses palpable. Lungs with rales throughout, compliant with IS. 96% on 3L. Tolerating diet. OOB to BSC for toileting needs. Call ty within reach. Will monitor.
--- NOTE | 2025-03-22 00:30 | PTCARENOTE ---
No change in previous assessment. Will monitor.
--- NOTE | 2025-03-22 04:30 | PTCARENOTE ---
AM labs sent and pending. Bladder scan 600ml, pt assisted to BSC, maximo to void without difficulty but did not have urge to go prior to bladder scan. Otherwise no change in previous assessment. AM EKG completed. Will monitor.
[2025-03-22] MEDS: ZOSYN 50 IV ×3 (04:45→17:22)
[2025-03-22 05:08] LABS: Hematocrit 30.9 % (37.0-47.0); Hemoglobin 10.1 g/dL (12.0-16.0); Mean Corp Hgb Conc. 32.7 g/dL (33.0-37.0); Mean Corpuscular Volume 89.0 fL (81.0-99.0); Platelet Count 213 10^3/uL (130-400); Red Cell Dist. Width 15.0 % (11.5-14.5)
[2025-03-22 05:40] LABS: Blood Urea Nitrogen 28 mg/dl (7-17); Calcium 8.4 mg/dl (8.4-10.2); Carbon Dioxide 25 mmol/L (22-30); Chloride 102 mmol/L (98-107); Estimated Creatinine Clearance 25 ml/min; Glucose 257 mg/dl (70-99); Potassium 3.4 mmol/L (3.5-5.1); Sodium 133 mmol/L (135-145); eGFR 48.63
[2025-03-22] MEDS: PULMICORT 0.25 MG INH ×2 (07:20→19:53)
[2025-03-22] MEDS: DUONEB 3 ML INH ×2 (07:20→19:53)
[2025-03-22 08:01] LABS: Magnesium 2.2 mg/dl (1.6-2.3)
[2025-03-22 08:04] LABS: Glucose - Point of Care 267 mg/dl (70-99)
--- NOTE | 2025-03-22 08:04 | W.PN.INTV ---
Today's Communication / Plan
Recommendations
Heart rate control with goal <110
Replete K>4, Mg>2
Uptitrate Cardizem as needed
Change DuoNebs from TID to BID to see if this also improves HR
Goal BG 140�180
Continue NOAC
Continue ICU level of care and once HR is better controlled then will downgrade out of ICU at that time; she is thankfully off Cardizem infusion and has not required amiodarone drip
Assessment
-
Assessment: 89-year-old female with a past medical history of A-fib on Xarelto, hypertension, hyperlipidemia, DM type II, history of ILD with recurrent lung infections and reported chronic bronchiectasis who presented with episode of
unresponsiveness. Patient had recently been hospitalized at outside hospital. Prior to arrival she was not feeling well and saw her PCP after a fall. She had been dealing with a cough + SOB. Placed onto a steroid taper which caused her BG to
rise and heart rate to be erratic. Prednisone quickly tapered off. Sotalol discontinued due to bradycardia. Norvasc discontinued due to hypotension. Patient follows with a grain elevator superintendent at [place] with a Dr. Espinoza (per patient). In the ER
she was hypotensive to 84/61, tachycardic to 155, respiratory rate 24, and saturating 93% on 2 L/min. INR 4.15, sodium 130, glucose 216, lactate 3.0, troponin 0.112, procalcitonin 0.27, COVID-19 antigen negative, and flu swab negative as well as
RSV negative. Blood cultures were collected. CXR showed retrocardiac opacification due to aspiration versus fibrosis versus pneumonia. Given 1.5 L bolus NS 0.9% in the ER + Zosyn and started on Cardizem drip and admitted to the ICU. Environmental Designer
service consulted for additional management/recommendations.
Chronic conditions [employer]: A-fib, hypertension, hypercholesterolemia, DM type II, history of bronchiectasis/ILD
Impression:
#Rapid A-fib requiring Cardizem drip - now off cardizem gtt but still in rapid A-fib
#Hypotension due to above
#Retrocardiac opacification with concern for aspiration pneumonia in setting of unresponsiveness [employer]
#Acute respiratory failure with hypoxia with concern for pneumonia and possible ILD flare
#Anemia
#Hyponatremia
#DM type II c/b hyperglycemia
#Hypomagnesemia
#Transaminitis
#Elevated troponin likely due to demand ischemia in the setting of rapid A-fib
Plan:
- Weaned off down Cardizem drip on 03/21; continue PO cardizem, up-titrating as needed to maintain rate control - defer to cardiology
- Perhaps she has developed A-fib with RVR as she is now off of sotalol for the past 2 weeks
- Cardiology consulted and recs appreciated
- Echo performed on 03/21/2025 showed preserved LVEF at 55-60% with severe TR and estimated PASP at 52 mmHg (no prior study available for comparison)
- Rate control with goal HR<110
- Replete K>4, Mg>2
- TSH WNL at 1.1
- Troponin peaked at 0.221 on 03/21 � no longer need to continue trending at this time - she currently denies chest pain or SOB, and she actually feels improved
- Maintain SpO2 >90-94% while weaning down submental O2 flow rate as tolerated
- prn nebulized bronchodilators - patient not currently bronchospastic
- Change scheduled DuoNebs TID to BID to see if this helps her tachycardia (her home regimen is TID)
- Continue systemic steroids, weaning down as she clinically improves - given her low BMI, reduced decadron from 4mg IV q8hr to 4mg q12hr on 03/21 - -> now reduce to prednisone taper
- Maintain euglycemia with goal BG 140-180mg/dL; A1C: 7.5 on 03/22/2025
- Obtain medical records from her PCP, in addition to her lung doctor and comber tender, in addition to previous chest imaging and prior cardiac studies
- Given that she was unresponsive prior to arrival and has a retrocardiac opacity, agree with empiric antibiotics with Zosyn as there is a high likelihood that she aspirated
- Monitor temperature curve and trend WBC
- Follow-up blood cultures; check sputum culture (if patient can produce a decent sample); urine antigens for Legionella + strep pneumonia both negative; MRSA swab negative
- Maintain MAP>65, may need to start vasopressors if MAP<65
- If HR remains elevated with worsening hypotension, then would start amiodarone gtt
- Random cortisol WNL (was drawn before decadron was given)
- Trend H/H and transfuse if needed to keep Hb >7-8g/dL; keep plt>10-20k, unless there is concern for bleeding then keep plt>50k
- Incentive spirometer encouraged q1hr while awake
- Early nutrition assuming not on high dose vasopressors given risk of gut ischemia
- Early ambulation if/when clinically stable
- DVT ppx: xarelto
Code status: Full code
Total time spent today was 82 minutes for this encounter. Time includes reviewing laboratory test/imaging results, reviewing pertinent medical records, obtaining and reviewing medical history, performing an appropriate exam, ordering medications,
tests and procedures. Time also includes documentation of this encounter, coordinating patient care and communicating with other healthcare professionals. Total time does not include separately billed tests performed on this date of service.
Subjective Dataa
Subjective Data
Date of Service:
Date of Service: March 22, 2025
Chief Complaint: Environmental Designer Follow Up
Subjective:
Patient seen today at bedside. Resting in bed in no acute distress, currently on cell phone. No chest pain or SOB reported. Heart rate 119, BP 108/77 and saturating 98% on 2 L/min nasal cannula.
Review of Systems
General: Other (Negative unless mentioned above)
Objective Data
Data Reviewed
Vital Signs / I&O / Oxygen:
Vital Signs
Temp Pulse Resp BP Pulse Ox
97.0 F 150 31 122/84 98
03/22/25 08:01 03/22/25 10:00 03/22/25 10:00 03/22/25 10:00 03/22/25 10:00
Intake and Output
03/21/25 03/22/25 03/23/25
06:59 06:59 06:59
Intake Total 810 / 810
Output Total 550 / 550
Balance 260 / 260
SaO2 98
Nasal Cannula flow liters per 2
minute
Physical Exam
General: Respiratory Distress (negative), Comfortable and Chills (negative)
HEENT: Normocephalic and Anicteric
Cardiovascular: Irregular Rhythm (Irregularly irregular), Peripheral Edema (negative) and Other (Tachycardic)
Respiratory: Wheeze (negative), Crackles (Bilateral), Rhonchi (negative) and Non-Labored Respirations
GI: Soft, Non Distended, Non Tender and Normal Bowel Sounds
Neurology: Awake, Alert and Tremors (negative)
Skin: Warm, Dry, Cyanosis (negative) and Jaundice (negative)
Labs/Micro/Reports
Lab Data
03/22/25 04:46
03/22/25 04:46
Microbiology
03/21/25 04:38 Blood/Venous Blood Culture - Preliminary
No Growth in 24 hours- Final report to follow
03/21/25 04:38 Blood/Venous Blood Culture - Preliminary
No Growth in 24 hours- Final report to follow
03/21/25 08:21 Urine Legionella Urinary Antigen - Final
Negative for Legionella pneumophila Serogroup 1 antigen.
A negative result does not rule out the possiblity of
Legionella infection due to other serogroups or species of
Legionella. Clinical correlation is recommended.
03/21/25 08:21 Urine Streptococcus pneumoniae Antigen (M - Final
Negative for Streptococcus pneumoniae antigen.
A negative result does not exclude infection with
Streptococcus pneumoniae. Clinical correlation is
recommended.
03/21/25 03:25 Nasal Swab Respiratory Syncytial Virus Ag - Final
Negative for Respiratory Syncytial Virus.
A false negative result may be obtained with a specimen
collected early in the acute phase. If symptoms persist, a
new specimen should be tested.
03/21/25 03:25 Nasal Swab Influenza Types A & B (TRAY) - Final
Negative for Influenza A & B, NAAT
Negative results must be combined with clinical observations
and patient history.
Nucleic Acid Amplification test (NAAT)performed on the
[employer] platform.
[2025-03-22] MEDS: NOVOLOG FLEXPEN-HIGH RESISTANCE 7 UNITS SC (08:22)
[2025-03-22] MEDS: VITAMIN B1 100 MG PO (08:24)
[2025-03-22] MEDS: CARDIZEM 30 MG PO (08:24)
[2025-03-22] MEDS: DECADRON 4 MG IV (08:24)
[2025-03-22] MEDS: COLACE 100 MG PO (08:33)
[2025-03-22] MEDS: NOVOLIN N vial 0.15 UNITS SC (10:19)
[2025-03-22] MEDS: KCL 40 MEQ PO (10:20)
--- NOTE | 2025-03-22 10:24 | PTCARENOTE ---
Discussed the plan of care with Dr. Tolliver and Dr. Alonso regarding HR, possible downgrading. Will administer diltiazem as ordered and possibly diurese. Pt is aware of the plan of care.
[2025-03-22 10:54] LABS: Glycohemoglobin (HgbA1c) 7.5 % (4.0-5.9)
--- NOTE | 2025-03-22 11:18 | W.PN.CD ---
Today's Communication / Plan
-
increase diltiazem to 60mg q6hr
monitor volume status
Impression / Plan
-
Sepsis secondary to possible PNA:
-on ABX
-management per intensivists/primary team
Persistent AFIB: fast rates in setting of acute illness and off usual medications
-maintained on sotalol as OP, but recently stopped by PCP per patient since HR on her O2 sat monitor read in the 20's per her report- I suspect this could have been erroneous, but will follow telemetry.
-increase diltiazem to 60mg q6hr
-continue Xarelto 15mg daily (renal dosing)- she reports no missed doses
ILD:
-follows with Pulmonary at [facility]
-pulm/intensivists on case
-on O2 by NC
Elevated BNP:
-echo 03/21: EF 55-60%, severe TR, PASP 52
-monitor volume status: Cr is up today, may need diuretic this admission (not on diuretic at home)
Abnormal troponin:
-acute, non-ischemic myocardial injury in setting of AFIB with RVR and sepsis
Physical Exam
Vital Signs/Labs
Vital Signs
Temp Pulse Resp BP Pulse Ox
97.0 F 150 31 122/84 98
03/22/25 08:01 03/22/25 10:00 03/22/25 10:00 03/22/25 10:00 03/22/25 10:00
03/21/25 03/22/25 03/23/25
06:59 06:59 06:59
Actual Weight 51 kg 50.4 kg
03/22/25 04:46
03/22/25 04:46
PT 40.4 Sec (11.4-14.6) H 03/21/25 09:05
INR 4.15 03/21/25 09:05
APTT 47.1 Sec (23.4-35.0) H 03/21/25 09:05
Magnesium 2.2 mg/dl (1.6-2.3) 03/22/25 04:46
03/21/25
03:25
[id number] Pept 4940
LAB Results
03/21/25 03/21/25 03/21/25
03 09:05 15:37
Troponin I 0.112 H* 0.221 H* D 0.160 H* D
Physical Exam
Constitutional: No acute distress and Comfortable
EENT: Moist mucous membranes
Cardiovascular: JVD pressure is normal, Systolic murmur absent, Rhythm/rate is irregular and Pedal edema present
Respiratory: Respiratory effort normal and Rhonchi Present
Neuro/Psych: AO x 3
Data Reviewed
-
Date of Service: March 22, 2025
EKG: Other (Tele: A fib 110s-120s)
Echo: Report Reviewed by me
Labs: Labs Reviewed by me
[2025-03-22] MEDS: CARDIZEM 60 MG PO ×3 (12:19→22:06)
[2025-03-22] MEDS: NOVOLOG FLEXPEN 4 UNITS SC ×2 (12:32→17:20)
[2025-03-22 12:33] LABS: Glucose - Point of Care 278 mg/dl (70-99)
[2025-03-22] MEDS: NOVOLOG FLEXPEN-MODERATE RESISTANCE 5 UNITS SC (12:33)
--- NOTE | 2025-03-22 12:52 | W.PN.HOSP.TC ---
Today's Communication/Plan
-
Increase Cardizem, okay to downgrade from the ICU level of care
Assessment / Plan
Assessment / Plan
Impression:
patient is 89-year-old woman with a history of atrial fibrillation on Xarelto, previously maintained on sotalol, hypertension, interstitial lung disease, diabetes, and prior carotid stenting presented after an episode of near-syncope and decreased
responsiveness. According to her daughter, the patient had been feeling unwell for approximately one week following a recent hospitalization and fall. She was treated with a methylprednisolone taper for respiratory symptoms but developed erratic
heart rates, including bradycardia, leading to discontinuation of sotalol and amlodipine. Over the past several days, she experienced intermittent fevers, chills, and worsening fatigue. On the day of admission, she was found unresponsive at home;
EMS noted atrial fibrillation with rapid ventricular response (HR ~190) and hypotension. She received IV fluids and a bolus of diltiazem, followed by a continuous infusion, with improvement in heart rate. In the ED, she remained somnolent but
arousable, tachycardic (HR 120�150), hypotensive (BP 79�100/42�61), tachypneic (RR low 30s), and hypoxic (SpO? 93% on 2 L). She was febrile earlier at home (101.9�F) but afebrile on arrival. Labs revealed elevated troponin (0.112), BNP (4900),
lactic acid (3.0), mild hyponatremia (Na 130), and anemia (Hgb 10.8). ECG confirmed atrial fibrillation with RVR. Chest imaging showed chronic changes without acute infiltrates. She was admitted to the ICU for rate control and hemodynamic monitoring.
When I saw the patient in the ER her blood pressure and heart rate improved, and she is more awake and oriented.
Patient was still tachycardic, switched Cardizem to oral and increased dose by cardiology, blood pressure improved and cardiology commending diuresis.
Assessment/plan:
Atrial Fibrillation with Rapid Ventricular Response
Patient with a history of atrial fibrillation previously managed with sotalol, which was discontinued recently due to bradycardia.
She presented with A-fib with RVR and hypotension.
Heart rate is now reasonably controlled on IV diltiazem.
Continue rate control with Cardizem drip, titrate as tolerated by blood pressure.
Maintain anticoagulation with Xarelto.
Obtain echocardiogram (pending)
monitor renal function.
Cardiology consulted appreciate input.
03/22
Increase oral Cardizem
Sepsis with acute organ dysfunction
Sepsis secondary to pneumonia with acute organ dysfunction in form of acute respiratory failure/acute metabolic encephalopathy/lactic acidosis
Initially plan was to admit to IMU for close monitoring. But secondary to hypotension. Patient admitted to the ICU.
Reported fever >101�F at home in the setting of chronic lung disease.
Continue broad-spectrum antibiotic
(Zosyn started in ED), monitor blood cultures, and check Legionella and pneumococcal antigens.
Pulmonary consultation requested. Consider IV steroids now that rate control has improved.
Mental status improved.
Lactic acid resolved
Acute respiratory failure
Patient remains tachypneic with RR in the 30s, requiring supplemental oxygen.
Elevated BNP and crackles suggest new-onset CHF, likely precipitated by uncontrolled atrial fibrillation.
Avoid aggressive diuresis due to soft blood pressure.
Monitor for need of BiPAP. Pulmonary consulted for underlying bronchiectasis and interstitial lung disease.
Acute congestive Heart Failure (nonspecific type, combined)
New onset suspected based on elevated BNP, trace edema, and crackles.
Hold IV fluids, provide oxygen, and consider pressors if hypotension persists.
Echocardiogram
1. Normal left ventricular systolic function.
2. Estimated ejection fraction 55 to 60%.
3. Severe tricuspid regurgitation.
4. Estimated PA pressure 52 mmHg.
5. No prior study available for comparison.
continue Lasix
Elevated Troponin
Likely non-ischemic myocardial injury secondary to sepsis, hypoxia, and tachycardia.
Continue anticoagulation,
continue to trend troponin.
Cardiology following.
History of diabetes mellitus
Continue home medication
Insulin sliding scale
Diabetic diet
Hemoglobin A1c 7.5
CODE STATUS: Full code
DVT prophylaxis: Xarelto
Diet: DM diet
Disposition: Increase Cardizem, okay to downgrade from the ICU level of care
Total time spent on today's encounter was 65 minutes which included time spent in counseling the patient/family regarding diagnosis and treatment plan as listed above, goals of care, and symptom management. Case was discussed with nursing staff,
specialists, and care coordinators/case management. All labs and imaging personally reviewed by me. Remainder the time spent in detailed review of previous records, lab data, imaging, and other medical provider documentation.
Anticipated Discharge: > 48 hours
Subjective/Interval History
-
Date of Service: March 22, 2025
Patient seen and examined at bedside, denies any chest pain, still tachycardic, occasional palpitations, still with shortness of breath, no abdominal pain, no nausea, no vomiting, no diarrhea or constipation. Cardiology recommending to increase
Cardizem short-acting.
Objective Data
-
Labs:
Laboratory Results
03/22/25
04:46
WBC 6.3
Hgb 10.1 L
Hct 30.9 L
Plt Count 213
Sodium 133 L
Potassium 3.4 L
Chloride 102
Carbon Dioxide 25
BUN 28 H
Creatinine 1.1 H
Glucose 257 H
Calcium 8.4
Vital Signs:
Vital Signs
Temp Pulse Resp BP Pulse Ox
97.0 F 123 31 124/108 98
03/22/25 08:01 03/22/25 12:19 03/22/25 10:00 03/22/25 12:19 03/22/25 10:00
I&O
03/21/25 03/22/25 03/23/25
06:59 06:59 06:59
Intake Total 810 / 810
Output Total 550 / 550
Balance 260 / 260
Physical Exam
-
General: Well Developed, Well Nourished, No Apparent Distress and Comfortable
HEENT: Normocephalic, Atraumatic, Moist Mucous Membranes, No Ptosis, PERRLA and Nose Appears Normal
Respiratory: Rales, Rhonchi, Crackles and Non Labored Respirations
Cardiac: S1/S2, Irregular Rhythm and Tachycardic
Breast: Deferred by me
GI: Soft, Nontender, Nondistended and Normal Bowel Sounds
Genito-urinary: No Costovertebral Tender
Musculoskeletal: No Clubbing, No Cyanosis and No Edema
Skin: Warm
Neuro: Awake, Alert, Oriented, AO x 3 and No Motor Deficits
Psych: Calm
--- NOTE | 2025-03-22 13:00 | PTCARENOTE ---
No urine output. Bladder scanned for 550ml's. Assisted pt to commode, voided 375ml's and passed several small hard formed stools. She stated she gets constipated easily. She asked to have the protective dressing on her sacrum removed because it was
hurting her. Her sacrum is blanchable red. She was assisted to the chair with an air chair cushion. Safe environment maintained. Remains in AFib 115-130's. Diltiazem 60mg administered as ordered.
[2025-03-22] MEDS: NOVOLOG FLEXPEN-HIGH RESISTANCE SC (13:08)
--- NOTE | 2025-03-22 15:26 | PTCARENOTE ---
Reported chest tightness to the speech language pathologist and that she has had it all day. EKG obtained. Pt was informed to notify RN or anyone else for that matter as soon as she starts to experience chest tightness.
--- NOTE | 2025-03-22 15:47 | PTCARENOTE ---
Pt verbalized that her chest tightness was from the Incentive Spirometer. I had asked the RPT to assess her for possible nebulizer treatment.
[2025-03-22 17:17] LABS: Glucose - Point of Care 225 mg/dl (70-99)
[2025-03-22] MEDS: NOVOLOG FLEXPEN-MODERATE RESISTANCE 3 UNITS SC (17:20)
[2025-03-22] MEDS: XARELTO 15 MG PO (17:22)
--- NOTE | 2025-03-22 18:15 | PTCARENOTE ---
Pt assisted to the commode. She sat for a while to empty her bladder. Post void bladder scan revealed she emptied her bladder. SHe was dyspneic returning to the bed. Safe environment maintained.
[2025-03-22 21:23] LABS: Glucose - Point of Care 175 mg/dl (70-99)
[2025-03-22] MEDS: NOVOLOG FLEXPEN 1 UNITS SC (22:05)
[2025-03-22] MEDS: HUMULIN N KWIKPEN 6 UNITS SC (22:06)
[2025-03-23] VITALS (28 sets, daily range): BP systolic 87–140; BP diastolic 51–91; O2SAT 95; BMI 22.1
[2025-03-23] MEDS: ZOSYN 50 IV ×2 (00:42→04:52)
--- NOTE | 2025-03-23 04:00 | PTCARENOTE ---
No change in previous assessment. Patient resting comfortably, call ty within reach. Will monitor.
[2025-03-23 05:03] LABS: Glucose - Point of Care 182 mg/dl (70-99)
[2025-03-23 05:03] LABS: Hematocrit 28.9 % (37.0-47.0); Hemoglobin 9.8 g/dL (12.0-16.0); Mean Corp Hgb Conc. 33.9 g/dL (33.0-37.0); Mean Corpuscular Volume 88.1 fL (81.0-99.0); Platelet Count 243 10^3/uL (130-400); Red Cell Dist. Width 15.6 % (11.5-14.5)
[2025-03-23 05:37] LABS: Blood Urea Nitrogen 29 mg/dl (7-17); Calcium 9.0 mg/dl (8.4-10.2); Carbon Dioxide 27 mmol/L (22-30); Chloride 106 mmol/L (98-107); Estimated Creatinine Clearance 23 ml/min; Glucose 170 mg/dl (70-99); Potassium 3.9 mmol/L (3.5-5.1); Sodium 137 mmol/L (135-145); eGFR 43.81
[2025-03-23] MEDS: DUONEB 3 ML INH ×2 (08:02→21:34)
[2025-03-23] MEDS: PULMICORT 0.25 MG INH ×2 (08:02→21:34)
--- NOTE | 2025-03-23 08:10 | PTCARENOTE ---
Received pt in bed. She is awake and alert. She was assisted to the commode then to the chair. HR 129 with activity. Mild SOB. 2 liters nasal cannula 97%. Breath sounds posteriorly with improvement in her expiratory wheeze. Crackles in the bases.
She stated she does not wear oxygen at home. Assisted with CHG bath and she was able to tolerate activity without distress. +BSX4. Reports constipation. Also recommended she schedules the use of the commode/bathroom to prevent urinary retention. She
has a difficult time starting her flow but also does not feel when her bladder is full. She verbalized her understanding. Sacrum improved and she no longer has pain there. L/E edema with left >right. She was informed of the plan of care to increase
ambulation, hopefully have a BM, and HR control.
--- NOTE | 2025-03-23 08:14 | W.PN.INTV ---
Today's Communication / Plan
Recommendations
Heart rate control with goal <110
Replete K>4, Mg>2
Uptitrate Cardizem as needed - raised to 90mg QID today
Changed DuoNebs from TID to BID to see if this also improves HR
Goal BG 140�180
Continue NOAC
Medical records requested from her real estate legal secretary at [facility]
If HR stabilizes and she remains hemodynamically stable, then plan to downgrade out of ICU to IMU. Once downgraded, pulmonary service will continue to briefly follow along.
Assessment
-
Assessment: 89-year-old female with a past medical history of A-fib on Xarelto, hypertension, hyperlipidemia, DM type II, history of ILD with recurrent lung infections and reported chronic bronchiectasis who presented with episode of
unresponsiveness. Patient had recently been hospitalized at outside hospital. Prior to arrival she was not feeling well and saw her PCP after a fall. She had been dealing with a cough + SOB. Placed onto a steroid taper which caused her BG to
rise and heart rate to be erratic. Prednisone quickly tapered off. Sotalol discontinued due to bradycardia. Norvasc discontinued due to hypotension. Patient follows with a real estate legal secretary at [place] with a Dr. Espinoza (per patient). In the ER
she was hypotensive to 84/61, tachycardic to 155, respiratory rate 24, and saturating 93% on 2 L/min. INR 4.15, sodium 130, glucose 216, lactate 3.0, troponin 0.112, procalcitonin 0.27, COVID-19 antigen negative, and flu swab negative as well as
RSV negative. Blood cultures were collected. CXR showed retrocardiac opacification due to aspiration versus fibrosis versus pneumonia. Given 1.5 L bolus NS 0.9% in the ER + Zosyn and started on Cardizem drip and admitted to the ICU. Joinery Patternmaker
service consulted for additional management/recommendations.
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
Impression:
#Rapid A-fib requiring Cardizem drip - now off cardizem gtt but still in rapid A-fib (albeit rate is improved and she remains minimally symptomatic)
#Hypotension due to above - BP now improved
#Retrocardiac opacification with concern for aspiration pneumonia vs pneumonitis with atelectasis in setting of unresponsiveness STRIKE ON MACHINE OPERATOR
#Acute respiratory failure with hypoxia with concern for pneumonia and possible ILD flare - hypoxia improved
#Anemia
#ETHAN
#Hyponatremia - now normal Na level
#DM type II c/b hyperglycemia
#Hypomagnesemia
#Transaminitis
#Elevated troponin likely due to demand ischemia in the setting of rapid A-fib
Plan:
- Weaned off down Cardizem drip on 03/21; continue PO cardizem, up-titrating as needed to maintain rate control - defer to cardiology
- Perhaps she has developed A-fib with RVR as she is now off of sotalol for the past 2 weeks (she was bradycardic on sotalol previously)
- Cardiology consulted and recs appreciated
- Echo performed on 03/21/2025 showed preserved LVEF at 55-60% with severe TR and estimated PASP at 52 mmHg (no prior study available for comparison)
- Rate control with goal HR<110
- Replete K>4, Mg>2
- TSH WNL at 1.1
- Troponin peaked at 0.221 on 03/21 � no longer need to continue trending at this time - she currently denies chest pain or SOB, and she continues to feel improved
- Maintain SpO2 >90-94%, using supplemental O2 if needed
- prn nebulized bronchodilators - patient not currently bronchospastic
- Changed scheduled DuoNebs TID to BID given her tachycardia (her home regimen is TID)
- Continue systemic steroids, weaning down as she clinically improves - given her low BMI, reduced decadron from 4mg IV q8hr to 4mg q12hr on 03/21 - -> reduced to prednisone taper on 03/23
- Maintain euglycemia with goal BG 140-180mg/dL; A1C: 7.5 on 03/22/2025
- Obtain medical records from her PCP, in addition to her lung doctor (Dr. Daugherty) and human resource manager, in addition to previous chest imaging and prior cardiac studies
- Given that she was unresponsive prior to arrival and has a retrocardiac opacity, agree with empiric antibiotics
- Narrow ABx to rocephin from Zosyn as there is a high likelihood that she aspirated
- Monitor temperature curve and trend WBC
- Follow-up blood cultures; check sputum culture (if patient can produce a decent sample); urine antigens for Legionella + strep pneumonia both negative; MRSA swab negative
- Maintain MAP>65
- If HR remains elevated with worsening hypotension, then would start amiodarone gtt
- Random cortisol WNL (was drawn before decadron was given)
- She does seem to be resistant to Cardizem, hence I will raise to 90 mg QID today; cardiology is planning to resume sotalol once infection is cleared. Patient's procalcitonin was initially slightly elevated, and I do ideally plan to repeat this
level to assure that procalcitonin level is continuing to decline, which would indicate source control. Given that her creatinine continues to be elevated, I will hold off on repeating procal for now until creatinine improves
- Trend H/H and transfuse if needed to keep Hb >7-8g/dL; keep plt>10-20k, unless there is concern for bleeding then keep plt>50k
- Incentive spirometer encouraged q1hr while awake
- Early nutrition assuming not on high dose vasopressors given risk of gut ischemia
- Early ambulation if/when clinically stable
- DVT ppx: xarelto
If HR stabilizes and she remains hemodynamically stable, then plan to downgrade out of ICU to IMU. Once downgraded, pulmonary service will continue to briefly follow along.
Code status: Full code
Total time spent today was 52 minutes for this encounter. Time includes reviewing laboratory test/imaging results, reviewing pertinent medical records, obtaining and reviewing medical history, performing an appropriate exam, ordering medications,
tests and procedures. Time also includes documentation of this encounter, coordinating patient care and communicating with other healthcare professionals. Total time does not include separately billed tests performed on this date of service.
Subjective Dataa
Subjective Data
Date of Service:
Date of Service: March 23, 2025
Chief Complaint: Joinery Patternmaker Follow Up
Subjective:
Patient was seen and evaluated this morning. Sitting in chair in no acute distress. Patient's daughter is at bedside, and all questions were answered. Patient's heart rate remains labile between 105�130, although patient denies chest pain or
shortness of breath at rest. Still feels a little winded with activity. Current BP 102/77 and saturating 94% on room air.
Review of Systems
General: Other (Negative unless mentioned above)
Objective Data
Data Reviewed
Vital Signs / I&O / Oxygen:
Vital Signs
Temp Pulse Resp BP Pulse Ox
98 F 135 30 102/71 97
03/23/25 07:24 03/23/25 08:50 03/23/25 08:05 03/23/25 08:50 03/23/25 08:05
Intake and Output
03/22/25 03/23/25 03/24/25
06:59 06:59 06:59
Intake Total 810 / 810 800 / 800
Output Total 550 / 550 675 / 675
Balance 260 / 260 125 / 125
SaO2 97
Nasal Cannula flow liters per 2
minute
Physical Exam
General: Respiratory Distress (negative), Comfortable and Chills (negative)
HEENT: Normocephalic and Anicteric
Cardiovascular: Irregular Rhythm (Irregularly irregular), Peripheral Edema (negative) and Other (Tachycardic)
Respiratory: Wheeze (negative), Crackles (Bilateral), Rhonchi (negative), Non-Labored Respirations and Other (Inspiratory squeaks heard bilaterally (R>L))
GI: Soft, Non Distended, Non Tender and Normal Bowel Sounds
Neurology: Awake, Alert and Tremors (negative)
Skin: Warm, Dry, Cyanosis (negative) and Jaundice (negative)
Labs/Micro/Reports
Lab Data
03/23/25 04:52
03/23/25 04:52
Microbiology
03/21/25 04:38 Blood/Venous Blood Culture - Preliminary
No Growth in 48 hours- Final report to follow
03/21/25 04:38 Blood/Venous Blood Culture - Preliminary
No Growth in 48 hours- Final report to follow
03/21/25 09:00 Nose MRSA Screen - Final
No Methicillin Resistant Staphylococcus aureus isolated.
03/21/25 08:21 Urine Legionella Urinary Antigen - Final
Negative for Legionella pneumophila Serogroup 1 antigen.
A negative result does not rule out the possiblity of
Legionella infection due to other serogroups or species of
Legionella. Clinical correlation is recommended.
03/21/25 08:21 Urine Streptococcus pneumoniae Antigen (M - Final
Negative for Streptococcus pneumoniae antigen.
A negative result does not exclude infection with
Streptococcus pneumoniae. Clinical correlation is
recommended.
03/21/25 03:25 Nasal Swab Respiratory Syncytial Virus Ag - Final
Negative for Respiratory Syncytial Virus.
A false negative result may be obtained with a specimen
collected early in the acute phase. If symptoms persist, a
new specimen should be tested.
03/21/25 03:25 Nasal Swab Influenza Types A & B (TRAY) - Final
Negative for Influenza A & B, NAAT
Negative results must be combined with clinical observations
and patient history.
Nucleic Acid Amplification test (NAAT)performed on the
[employer] platform.
--- NOTE | 2025-03-23 08:22 | W.PN.CD ---
Today's Communication / Plan
-
- Rate control with infection with Diltiazem
- Once infection is cleared, will resume rhythm control strategy with Sotalol.
Impression / Plan
-
Sepsis secondary to possible PNA:
-on ABX
-management per intensivists/primary team
Persistent AFIB: fast rates in setting of acute illness and off usual medications
-maintained on sotalol as OP, but recently stopped by PCP per patient since HR on her O2 sat monitor read in the 20's per her report- I suspect this could have been erroneous, but will follow telemetry.
-on diltiazem to 60mg q6hr
-Home regimen is Sotalol 80 mg QD - Cr is normal. 40 mg BID or 80 mg BID would be a better AF controlling dose. With her weight 40 mg dose might be adequate.
- For now will use Diltiazem in the setting of septicemia.
-continue Xarelto 15mg daily (renal dosing)- she reports no missed doses
ILD:
-follows with Pulmonary at [facility]
-pulm/intensivists on case
-on O2 by NC
Elevated BNP:
-echo 03/21: EF 55-60%, severe TR, PASP 52
-monitor volume status: Cr is rising, may need diuretic this admission (not on diuretic at home)
Abnormal troponin:
-acute, non-ischemic myocardial injury in setting of AFIB with RVR and sepsis
Physical Exam
Vital Signs/Labs
Vital Signs
Temp Pulse Resp BP Pulse Ox
98 F 79 30 95/68 97
03/23/25 07:24 03/23/25 08:05 03/23/25 08:05 03/23/25 07:00 03/23/25 08:05
03/22/25 03/23/25 03/24/25
06:59 06:59 06:59
Actual Weight 50.4 kg 49.7 kg
03/23/25 04:52
03/23/25 04:52
PT 40.4 Sec (11.4-14.6) H 03/21/25 09:05
INR 4.15 03/21/25 09:05
APTT 47.1 Sec (23.4-35.0) H 03/21/25 09:05
Magnesium 2.2 mg/dl (1.6-2.3) 03/22/25 04:46
03/21/25
03:25
[id number] Pept 4940
LAB Results
03/21/25 03/21/25 03/21/25
03:25 09:05 15:37
Troponin I 0.112 H* 0.221 H* D 0.160 H* D
Physical Exam
Constitutional: No acute distress and Comfortable
EENT: Anicteric and Moist mucous membranes
Cardiovascular: Rhythm/rate is irregular, Pedal edema present, JVD present and Systolic murmur present
Respiratory: Respiratory effort normal and Crackles Present
GI: Soft and Normal bowel sounds
Neuro/Psych: Alert and Oriented
Data Reviewed
-
Date of Service: March 23, 2025
Medical Decision Making: Reviewed Test Results, Test Interpretation and Review of Case with other Provider
EKG: Tracing Personally Visualized and interpreted
Echo: Report Reviewed by me
Labs: Labs Reviewed by me
Old Records: Reviewed
[2025-03-23] MEDS: VITAMIN B1 100 MG PO (08:50)
[2025-03-23] MEDS: DELTASONE 40 MG PO (08:50)
[2025-03-23] MEDS: CARDIZEM 60 MG PO (08:50)
[2025-03-23 08:57] LABS: Glucose - Point of Care 194 mg/dl (70-99)
[2025-03-23] MEDS: NOVOLOG FLEXPEN 4 UNITS SC ×2 (09:05→12:33)
[2025-03-23] MEDS: NOVOLOG FLEXPEN-MODERATE RESISTANCE 300 UNITS SC (09:06)
[2025-03-23] MEDS: HUMULIN N KWIKPEN 15 UNITS SC (09:08)
[2025-03-23] MEDS: JANUVIA 100 MG PO (09:13)
[2025-03-23] MEDS: COLACE 100 MG PO ×2 (10:48→21:01)
--- NOTE | 2025-03-23 10:59 | PTCARENOTE ---
Pt with reports of tightness in her breathing. She has bibasilar crackles half way up. RA pulse ox 94-96%. No wheezing appreciated.
[2025-03-23] MEDS: NOVOLOG FLEXPEN-MODERATE RESISTANCE 1 UNITS SC (12:34)
[2025-03-23 12:37] LABS: Glucose - Point of Care 166 mg/dl (70-99)
[2025-03-23] MEDS: MIRALAX 17 GRAMS PO (12:42)
[2025-03-23] MEDS: STERILE WATER FOR INJECTION 10 ML IV (12:42)
[2025-03-23] MEDS: ROCEPHIN 1000 MG IV (12:42)
[2025-03-23] MEDS: ZOSYN IV (13:07)
--- NOTE | 2025-03-23 13:08 | PTCARENOTE ---
pt reported episode of nausea shortly after Ceftriaxone administered. At that time she was also assisted from the commode to the chair 10 minutes prior. She was slightly dyspneic after transfer to the chair. She talks a lot while doing activity, HR
134 briefly with RR 34. She was instructed at that time to not talk so much while doing activity.
[2025-03-23] MEDS: CARDIZEM 90 MG PO ×3 (13:13→21:01)
--- NOTE | 2025-03-23 13:33 | W.PN.HOSP.TC ---
Today's Communication/Plan
-
Continue antibiotic, okay to downgrade from the ICU level of care
Assessment / Plan
Assessment / Plan
Impression:
patient is 89-year-old woman with a history of atrial fibrillation on Xarelto, previously maintained on sotalol, hypertension, interstitial lung disease, diabetes, and prior carotid stenting presented after an episode of near-syncope and decreased
responsiveness. According to her daughter, the patient had been feeling unwell for approximately one week following a recent hospitalization and fall. She was treated with a methylprednisolone taper for respiratory symptoms but developed erratic
heart rates, including bradycardia, leading to discontinuation of sotalol and amlodipine. Over the past several days, she experienced intermittent fevers, chills, and worsening fatigue. On the day of admission, she was found unresponsive at home;
EMS noted atrial fibrillation with rapid ventricular response (HR ~190) and hypotension. She received IV fluids and a bolus of diltiazem, followed by a continuous infusion, with improvement in heart rate. In the ED, she remained somnolent but
arousable, tachycardic (HR 120�150), hypotensive (BP 79�100/42�61), tachypneic (RR low 30s), and hypoxic (SpO? 93% on 2 L). She was febrile earlier at home (101.9�F) but afebrile on arrival. Labs revealed elevated troponin (0.112), BNP (4900),
lactic acid (3.0), mild hyponatremia (Na 130), and anemia (Hgb 10.8). ECG confirmed atrial fibrillation with RVR. Chest imaging showed chronic changes without acute infiltrates. She was admitted to the ICU for rate control and hemodynamic monitoring.
When I saw the patient in the ER her blood pressure and heart rate improved, and she is more awake and oriented.
Patient was still tachycardic, switched Cardizem to oral and increased dose by cardiology, blood pressure improved and cardiology commending diuresis.
Assessment/plan:
Atrial Fibrillation with Rapid Ventricular Response
Patient with a history of atrial fibrillation previously managed with sotalol, which was discontinued recently due to bradycardia.
She presented with A-fib with RVR and hypotension.
Heart rate is now reasonably controlled on IV diltiazem.
Continue rate control with Cardizem drip, titrate as tolerated by blood pressure.
Maintain anticoagulation with Xarelto.
Obtain echocardiogram (pending)
monitor renal function.
Cardiology consulted appreciate input.
03/22
Increase oral Cardizem
Sepsis with acute organ dysfunction
Sepsis secondary to pneumonia with acute organ dysfunction in form of acute respiratory failure/acute metabolic encephalopathy/lactic acidosis
Initially plan was to admit to IMU for close monitoring. But secondary to hypotension. Patient admitted to the ICU.
Reported fever >101�F at home in the setting of chronic lung disease.
Continue broad-spectrum antibiotic
(Zosyn started in ED), monitor blood cultures, and check Legionella and pneumococcal antigens.
Pulmonary consultation requested. Consider IV steroids now that rate control has improved.
Mental status improved.
Lactic acid resolved
Acute respiratory failure
Patient remains tachypneic with RR in the 30s, requiring supplemental oxygen.
Elevated BNP and crackles suggest new-onset CHF, likely precipitated by uncontrolled atrial fibrillation.
Avoid aggressive diuresis due to soft blood pressure.
Monitor for need of BiPAP. Pulmonary consulted for underlying bronchiectasis and interstitial lung disease.
Acute congestive Heart Failure (nonspecific type, combined)
New onset suspected based on elevated BNP, trace edema, and crackles.
Hold IV fluids, provide oxygen, and consider pressors if hypotension persists.
Echocardiogram
1. Normal left ventricular systolic function.
2. Estimated ejection fraction 55 to 60%.
3. Severe tricuspid regurgitation.
4. Estimated PA pressure 52 mmHg.
5. No prior study available for comparison.
S/P Lasix
Held for elevated creatinine
Elevated Troponin
Likely non-ischemic myocardial injury secondary to sepsis, hypoxia, and tachycardia.
Continue anticoagulation,
continue to trend troponin.
Cardiology following.
History of diabetes mellitus
Continue home medication
Insulin sliding scale
Diabetic diet
Hemoglobin A1c 7.5
CODE STATUS: Full code
DVT prophylaxis: Xarelto
Diet: DM diet
Disposition: Continue antibiotic, okay to downgrade from the ICU level of care
Total time spent on today's encounter was 65 minutes which included time spent in counseling the patient/family regarding diagnosis and treatment plan as listed above, goals of care, and symptom management. Case was discussed with nursing staff,
specialists, and care coordinators/case management. All labs and imaging personally reviewed by me. Remainder the time spent in detailed review of previous records, lab data, imaging, and other medical provider documentation.
Anticipated Discharge: > 48 hours
Subjective/Interval History
-
Date of Service: March 23, 2025
Patient seen and examined at bedside, denies any chest pain , shortness of breath Improved, patient still tachycardic, no abdominal pain, no nausea, no vomiting, no diarrhea or constipation.
Objective Data
-
Labs:
Laboratory Results
03/23/25
04:52
WBC 12.6 H
Hgb 9.8 L
Hct 28.9 L
Plt Count 243
Sodium 137
Potassium 3.9
Chloride 106
Carbon Dioxide 27
BUN 29 H
Creatinine 1.2 H
Glucose 170 H
Calcium 9.0
Vital Signs:
Vital Signs
Temp Pulse Resp BP Pulse Ox
97.5 F 124 28 102/77 95
03/23/25 11:33 03/23/25 13:13 03/23/25 12:00 03/23/25 13:13 03/23/25 12:00
I&O
03/22/25 03/23/25 03/24/25
06:59 06:59 06:59
Intake Total 810 / 810 800 / 800
Output Total 550 / 550 675 / 675 175 / 175
Balance 260 / 260 125 / 125 -175 / -175
Physical Exam
-
General: Well Developed, Well Nourished, No Apparent Distress and Comfortable
HEENT: Normocephalic, Atraumatic, Moist Mucous Membranes, No Ptosis, PERRLA and Nose Appears Normal
Respiratory: Rales, Rhonchi, Crackles and Non Labored Respirations
Cardiac: S1/S2, Irregular Rhythm and Tachycardic
Breast: Deferred by me
GI: Soft, Nontender, Nondistended and Normal Bowel Sounds
Genito-urinary: No Costovertebral Tender
Musculoskeletal: No Clubbing, No Cyanosis and No Edema
Skin: Warm
Neuro: Awake, Alert, Oriented, AO x 3 and No Motor Deficits
Psych: Calm
--- NOTE | 2025-03-23 14:54 | PN.DE.MGMTRT ---
Insulin Management
- -
03/23/2025 Diabetes Management Consult
89 year old patient admitted 03/21 with respiratory distress, elevated T 102, lactic acidosis, sepsis secondary to pneumonia. PMH chronic interstitial lung disease, recurrent pneumonia, chronic bronchitis, HTN, afib. Prior to admission was taking
metformin 500 mg with dinner. A1C 7.5%, cr 1.2, eGFR 43.81.
Patient is awake alert and oriented sitting out of bed in chair, family is at bedside very supportive. Patient is very talkative able to discuss diabetes care prior to admission. She states she does not have diabetes and doesn't want it so she
eats carefully. Patient and daughter state patient was on prednisone at home, RX from primary doctor and glucose shot up to > 400.
Patient glucose range yesterday 175 to 267. Received 15 units NPH BID with 4 units novolog AC.
Fasting glucose today 170, pre lunch 166. Patient received dexamethasone IV yesterday, has transitioned to PO prednisone 40 mg. Will continue insulin at this time NPH 15 units BID with 4 units novolog AC. Will add Januvia 100 mg daily. Due to
lactic acidosis will hold metformin. Hopeful as prednisone is weaned insulin dose can also be decreased.
Diet has been decreased from 1800 calorie to 1600 calorie as patient is 4'11'.
Discussed with family, patient and nurse.
Will follow.
Diabetes History
- -
Type of Diabetes: 2
Pre-Admission Diabetes Regimen
03/23/25
04:52
Creatinine 1.2 H
Lab Results
Hemoglobin A1c 7.5 % (4.0-5.9) H 03/22/25 04:46
Insulin Pump Settings
IP Diabetes Regimen
03/22/25 03/22/25 03/23/25
17:16 21:21 04:52
Glucose 170 H
POC Glucose 225 H 175 H
03/23/25 03/23/25 03/23/25
05:02 08:55 12:31
Glucose
POC Glucose 182 H 194 H 166 H
Meal type: Breakfast
Amount consumed: 100%
Patient Education
[2025-03-23] MEDS: VIBRAMYCIN 100 MG PO (16:19)
[2025-03-23 18:13] LABS: Glucose - Point of Care 66 mg/dl (70-99)
[2025-03-23] MEDS: NOVOLOG FLEXPEN-MODERATE RESISTANCE SC (18:14)
[2025-03-23] MEDS: XARELTO 15 MG PO (18:22)
[2025-03-23 18:35] LABS: Glucose - Point of Care 89 mg/dl (70-99)
[2025-03-23] MEDS: HUMULIN N KWIKPEN SC (18:35)
[2025-03-23] MEDS: NOVOLOG FLEXPEN SC (18:35)
--- NOTE | 2025-03-23 20:00 | PTCARENOTE ---
Pt alert/oriented/cooperative resting in bed. Helped to bedside commode with minimal assist. Afebrile. Afib on monitor, controlled. With activity, HR 120-130. Pulses palpable, trace edema.Blood sugars checked per protocol given hypoglycemia on
previous shift. Room air during the day, 2L for comfort overnight, sat was 90-91% on room air when asleep. Tolerating diet. Complaining of constipation. Colace given. Dulcolax ordered PRN and given. Small BM noted. Voiding on BSC, often needs
prompting to try to pee, PVR zero thus far. Call ty within reach, safe environment maintained. Will monitor.
[2025-03-23 20:17] LABS: Glucose - Point of Care 85 mg/dl (70-99)
[2025-03-23] MEDS: DULCOLAX 10 MG RECTAL (21:01)
[2025-03-23 23:10] LABS: Glucose - Point of Care 113 mg/dl (70-99)
[2025-03-24] VITALS (17 sets, daily range): BP systolic 101–131; BP diastolic 52–85; BMI 22.4
--- NOTE | 2025-03-24 01:00 | PTCARENOTE ---
No change in assessment. Pt resting comfortably. Will monitor.
[2025-03-24 03:50] LABS: Hematocrit 30.6 % (37.0-47.0); Hemoglobin 10.5 g/dL (12.0-16.0); Mean Corp Hgb Conc. 34.3 g/dL (33.0-37.0); Mean Corpuscular Volume 87.9 fL (81.0-99.0); Platelet Count 307 10^3/uL (130-400); Red Cell Dist. Width 16.0 % (11.5-14.5)
[2025-03-24 03:57] LABS: Blood Urea Nitrogen 35 mg/dl (7-17); Calcium 9.3 mg/dl (8.4-10.2); Carbon Dioxide 23 mmol/L (22-30); Chloride 103 mmol/L (98-107); Estimated Creatinine Clearance 23 ml/min; Glucose 95 mg/dl (70-99); Potassium 4.2 mmol/L (3.5-5.1); Sodium 134 mmol/L (135-145); eGFR 43.81
--- NOTE | 2025-03-24 04:19 | PTCARENOTE ---
AM labs sent and pending. Partial bath given. Assisted with toileting needs. Safe environment maintained. Will monitor.
[2025-03-24] MEDS: DUONEB 3 ML INH ×2 (07:52→21:11)
[2025-03-24] MEDS: PULMICORT 0.25 MG INH ×2 (07:52→21:12)
[2025-03-24 08:06] LABS: Glucose - Point of Care 97 mg/dl (70-99)
[2025-03-24] MEDS: CARDIZEM 90 MG PO (08:21)
[2025-03-24] MEDS: NOVOLOG FLEXPEN-MODERATE RESISTANCE SC (08:21)
[2025-03-24] MEDS: DELTASONE 30 MG PO (08:22)
[2025-03-24] MEDS: VIBRAMYCIN 100 MG PO ×2 (08:22→20:18)
[2025-03-24] MEDS: JANUVIA 100 MG PO (08:22)
[2025-03-24] MEDS: MIRALAX 17 GRAMS PO (08:22)
[2025-03-24] MEDS: VITAMIN B1 100 MG PO (08:22)
[2025-03-24] MEDS: COLACE 100 MG PO (08:22)
--- NOTE | 2025-03-24 09:57 | W.PN.PUL3 ---
Today's Communication / Plan
-
Heart rate control per cardiology/EP
On room air breathing comfortably; maintain SpO2 >89% given her Hx of PH
Sotalol resumed today
Monitor QTc
Prednisone taper (already ordered)
5 days antibiotics recommended, assuming she continues to clinically improve and remains afebrile for 48 hours prior to stopping
Recommend her to follow-up with her medical planner upon discharge (Dr. Daugherty)
Up OOB as tolerated with PT/OT
No additional recommendations at this time. Pulmonary service will now sign off. Please reconsult if there are any additional questions/concerns, or if patient's respiratory status deteriorates.
Assessment
-
Assessment: 89-year-old female with a past medical history of A-fib on Xarelto, hypertension, hyperlipidemia, DM type II, history of ILD with recurrent lung infections and reported chronic bronchiectasis who presented with episode of
unresponsiveness. Patient had recently been hospitalized at outside hospital. Prior to arrival she was not feeling well and saw her PCP after a fall. She had been dealing with a cough + SOB. Placed onto a steroid taper which caused her BG to
rise and heart rate to be erratic. Prednisone quickly tapered off. Sotalol discontinued due to bradycardia. Norvasc discontinued due to hypotension. Patient follows with a medical planner at [place] with a Dr. Espinoza (per patient). In the ER
she was hypotensive to 84/61, tachycardic to 155, respiratory rate 24, and saturating 93% on 2 L/min. INR 4.15, sodium 130, glucose 216, lactate 3.0, troponin 0.112, procalcitonin 0.27, COVID-19 antigen negative, and flu swab negative as well as
RSV negative. Blood cultures were collected. CXR showed retrocardiac opacification due to aspiration versus fibrosis versus pneumonia. Given 1.5 L bolus NS 0.9% in the ER + Zosyn and started on Cardizem drip and admitted to the ICU. Therapeutic Sales Specialist
service consulted for additional management/recommendations.
Chronic conditions COPY COORDINATOR: A-fib, hypertension, hypercholesterolemia, DM type II, history of bronchiectasis/ILD
Impression:
#Rapid A-fib requiring Cardizem drip - now off cardizem gtt with improved rate
#Hypotension due to above - BP now improved
#Retrocardiac opacification with concern for aspiration pneumonia vs pneumonitis with atelectasis in setting of unresponsiveness COPY COORDINATOR
#Acute respiratory failure with hypoxia with concern for pneumonia and possible ILD flare - hypoxia improved
#ILD
#Pulmonary hypertension
#Anemia
#ETHAN
#Hyponatremia - mild
#DM type II c/b hyperglycemia
#Hypomagnesemia
#Transaminitis
#Elevated troponin likely due to demand ischemia in the setting of rapid A-fib
Plan:
- Weaned off down Cardizem drip on 03/21; continue PO cardizem - -> was uptitrated to 90 mg QID, however EP today is now resuming sotalol 80 mg once daily and has decreased Cardizem back down to 60 mg QID
- Perhaps she has developed A-fib with RVR as she is now off of sotalol for the past 2 weeks (though she was bradycardic on sotalol previously)
- Cardiology consulted and recs appreciated
- Echo performed on 03/21/2025 showed preserved LVEF at 55-60% with severe TR and estimated PASP at 52 mmHg (no prior study available for comparison)
- Rate control with goal HR<110
- Replete K>4, Mg>2
- TSH WNL at 1.1
- Troponin peaked at 0.221 on 03/21 � no longer need to continue trending at this time - she currently denies chest pain or SOB, and she continues to feel improved
- Maintain SpO2 >89%, using supplemental O2 if needed
- prn nebulized bronchodilators - patient not currently bronchospastic
- Changed scheduled DuoNebs TID to BID given her tachycardia (her home regimen is TID)
- Continue systemic steroids - given her low BMI with hyperglycemia, on 03/21 we changed decadron from 4mg IV q8hr to 4mg q12hr on 03/21 - -> on 03/23, changed to prednisone taper
- Maintain euglycemia with goal BG 140-180mg/dL; A1C: 7.5 on 03/22/2025
- Obtain medical records from her PCP, in addition to her lung doctor (Dr. Daugherty) and glove turner and former, with previous chest imaging and prior cardiac studies
- Given that she was unresponsive prior to arrival and has a retrocardiac opacity, agree with empiric antibiotics
- Narrow ABx to rocephin from Zosyn as there is a high likelihood that she aspirated
- Continue doxy
- Complete 5 days of ABx
- Monitor temperature curve and trend WBC
- Follow-up blood cultures; check sputum culture (if patient can produce a decent sample); urine antigens for Legionella + strep pneumonia both negative; MRSA swab negative
- Maintain MAP>65
- If HR remains elevated with worsening hypotension, then would start amiodarone gtt
- Random cortisol WNL (was drawn before decadron was given)
- Trend H/H and transfuse if needed to keep Hb >7-8g/dL; keep plt>10-20k, unless there is concern for bleeding then keep plt>50k
- Incentive spirometer encouraged q1hr while awake
- Early nutrition
- Early ambulation if/when clinically stable
- DVT ppx: xarelto
Code status: Full code
Patient is on room air, breathing comfortably, no additional concern for ILD flare at this time. Defer additional decisions regarding heart rate control to cardiology/EP. Outpatient follow-up recommended with her medical planner, Dr. Daugherty.
No additional recommendations at this time. Pulmonary service will now sign off. Thank you for allowing us to be involved in the care of this patient. Please reconsult if there are any additional questions/concerns, or if patient's respiratory
status deteriorates.
Total time spent today was 37 minutes for this encounter. Time includes reviewing laboratory test/imaging results, reviewing pertinent medical records, obtaining and reviewing medical history, performing an appropriate exam, ordering medications,
tests and procedures. Time also includes documentation of this encounter, coordinating patient care and communicating with other healthcare professionals. Total time does not include separately billed tests performed on this date of service.
Subjective Data
-
Date of Service:
Date of Service: March 24, 2025
Chief Complaint: Pulmonary Follow Up
Subjective:
Patient seen this morning. No acute events reported overnight. Currently on room air breathing comfortably, saturating 94%. Heart rate this morning remains labile between 105�125, increasing into the 120�130s with exertion.
Review of Systems
General: Other (Negative unless mentioned above)
Objective Data
Data Reviewed
Vital Signs / I&O / Oxygen:
Vital Signs
Temp Pulse Resp BP Pulse Ox
97.8 F 116 32 106/78 966
03/24/25 08:39 03/24/25 08:21 03/24/25 08:00 03/24/25 08:21 03/24/25 08:56
Intake and Output
03/23/25 03/24/25 03/25/25
06:59 06:59 06:59
Intake Total 800 / 800 720 / 720
Output Total 675 / 675 375 / 375 100 / 100
Balance 125 / 125 345 / 345 -100 / -100
SaO2 966
Nasal Cannula flow liters per 2
minute
Physical Exam
General: Respiratory Distress (negative), Comfortable, Chills (negative) and Sweats (negative)
HEENT: Normocephalic and Anicteric
Cardiovascular: Irregular Rhythm (Irregularly irregular), Peripheral Edema (negative) and Other (Tachycardic)
Respiratory: Wheeze (negative), Crackles (Bilateral), Rhonchi (negative), Non-Labored Respirations and Stridor (negative)
GI: Soft, Non Distended, Non Tender and Normal Bowel Sounds
Neurology: Awake, Alert, Oriented and Tremors (negative)
Skin: Warm, Dry, Cyanosis (negative) and Jaundice (negative)
Labs/Micro/Reports
Lab Data
03/24/25 03:28
03/24/25 03:28
Microbiology
03/21/25 04:38 Blood/Venous Blood Culture - Preliminary
No Growth in 72 hours- Final report to follow
03/21/25 04:38 Blood/Venous Blood Culture - Preliminary
No Growth in 72 hours- Final report to follow
03/21/25 09:00 Nose MRSA Screen - Final
No Methicillin Resistant Staphylococcus aureus isolated.
03/21/25 08:21 Urine Legionella Urinary Antigen - Final
Negative for Legionella pneumophila Serogroup 1 antigen.
A negative result does not rule out the possiblity of
Legionella infection due to other serogroups or species of
Legionella. Clinical correlation is recommended.
03/21/25 08:21 Urine Streptococcus pneumoniae Antigen (M - Final
Negative for Streptococcus pneumoniae antigen.
A negative result does not exclude infection with
Streptococcus pneumoniae. Clinical correlation is
recommended.
03/21/25 03:25 Nasal Swab Respiratory Syncytial Virus Ag - Final
Negative for Respiratory Syncytial Virus.
A false negative result may be obtained with a specimen
collected early in the acute phase. If symptoms persist, a
new specimen should be tested.
03/21/25 03:25 Nasal Swab Influenza Types A & B (TRAY) - Final
Negative for Influenza A & B, NAAT
Negative results must be combined with clinical observations
and patient history.
Nucleic Acid Amplification test (NAAT)performed on the
[employer] platform.
--- NOTE | 2025-03-24 11:02 | W.PN.CD ---
Today's Communication / Plan
-
- Restart her Sotalol 80 mg QD
- decrease diltiazem to 60mg q6hr - Hold if bradycardiac or hypotensive.
Impression / Plan
-
Sepsis secondary to possible PNA:
-on ABX
-management per intensivists/primary team
Persistent AFIB: fast rates in setting of acute illness and off usual medications
-maintained on sotalol as OP, - hold now due to resp infection
-Resp status has imporved.
- Rates are poorly controlled with Dilt 90 mg QID
- Will restart her Sotalol 80 mg QD dose for now.
- decrease diltiazem to 60mg q6hr - Hold if bradycardiac or hypotensive.
- continue Xarelto 15mg daily (renal dosing)- she reports no missed doses
ILD:
-follows with Pulmonary at [facility]
-pulm/intensivists on case
-on O2 by NC
Elevated BNP:
-echo 03/21: EF 55-60%, severe TR, PASP 52
-monitor volume status: Cr is rising, may need diuretic this admission (not on diuretic at home)
Abnormal troponin:
-acute, non-ischemic myocardial injury in setting of AFIB with RVR and sepsis
Physical Exam
Vital Signs/Labs
Vital Signs
Temp Pulse Resp BP Pulse Ox
97.8 F 116 32 106/78 966
03/24/25 08:39 03/24/25 08:21 03/24/25 08:00 03/24/25 08:21 03/24/25 08:56
03/23/25 03/24/25 03/25/25
06:59 06:59 06:59
Actual Weight 49.7 kg 50.2 kg
03/24/25 03:28
03/24/25 03:28
PT 40.4 Sec (11.4-14.6) H 03/21/25 09:05
INR 4.15 03/21/25 09:05
APTT 47.1 Sec (23.4-35.0) H 03/21/25 09:05
Magnesium 2.2 mg/dl (1.6-2.3) 03/22/25 04:46
03/21/25
03:25
Hep-[id number]-Qcvhdqyzagr Pept 4940
LAB Results
03/21/25
15:37
Troponin I 0.160 H* D
Physical Exam
Constitutional: No acute distress and Comfortable
EENT: Anicteric and Moist mucous membranes
Cardiovascular: Pedal edema is absent, JVD pressure is normal, Rhythm/rate is irregular and Systolic murmur present
Respiratory: Respiratory effort normal, Wheeze Absent and Crackles Absent
GI: Soft, Non tender and Normal bowel sounds
Neuro/Psych: Alert, Oriented and AO x 3
Data Reviewed
-
Date of Service: March 24, 2025
Medical Decision Making: Reviewed Test Results, Test Interpretation and Review of Case with other Provider
EKG: Tracing Personally Visualized and interpreted (Telemetry showed acceptabel rate control most of the time with uncontrolled RVR noted this AM. )
Echo: Report Reviewed by me
Labs: Labs Reviewed by me
Old Records: Reviewed
Critical Care Time (in minutes): 32
[2025-03-24] MEDS: STERILE WATER FOR INJECTION 10 ML IV (12:19)
[2025-03-24] MEDS: ROCEPHIN 1000 MG IV (12:19)
[2025-03-24] MEDS: FLUSH (NSS) 1 FLUSH IV (12:19)
[2025-03-24 13:19] LABS: Glucose - Point of Care 211 mg/dl (70-99)
[2025-03-24] MEDS: NOVOLOG FLEXPEN-MODERATE RESISTANCE 3 UNITS SC (13:44)
[2025-03-24] MEDS: CARDIZEM 60 MG PO ×3 (13:45→21:54)
--- NOTE | 2025-03-24 13:54 | W.PN.HOSP.TC ---
Today's Communication/Plan
-
Continue antibiotic, sotalol
Assessment / Plan
Assessment / Plan
Impression:
patient is 89-year-old woman with a history of atrial fibrillation on Xarelto, previously maintained on sotalol, hypertension, interstitial lung disease, diabetes, and prior carotid stenting presented after an episode of near-syncope and decreased
responsiveness. According to her daughter, the patient had been feeling unwell for approximately one week following a recent hospitalization and fall. She was treated with a methylprednisolone taper for respiratory symptoms but developed erratic
heart rates, including bradycardia, leading to discontinuation of sotalol and amlodipine. Over the past several days, she experienced intermittent fevers, chills, and worsening fatigue. On the day of admission, she was found unresponsive at home;
EMS noted atrial fibrillation with rapid ventricular response (HR ~190) and hypotension. She received IV fluids and a bolus of diltiazem, followed by a continuous infusion, with improvement in heart rate. In the ED, she remained somnolent but
arousable, tachycardic (HR 120�150), hypotensive (BP 79�100/42�61), tachypneic (RR low 30s), and hypoxic (SpO? 93% on 2 L). She was febrile earlier at home (101.9�F) but afebrile on arrival. Labs revealed elevated troponin (0.112), BNP (4900),
lactic acid (3.0), mild hyponatremia (Na 130), and anemia (Hgb 10.8). ECG confirmed atrial fibrillation with RVR. Chest imaging showed chronic changes without acute infiltrates. She was admitted to the ICU for rate control and hemodynamic monitoring.
When I saw the patient in the ER her blood pressure and heart rate improved, and she is more awake and oriented.
Patient was still tachycardic, switched Cardizem to oral and increased dose by cardiology, blood pressure improved and cardiology commending diuresis.
Restart sotalol
Assessment/plan:
Atrial Fibrillation with Rapid Ventricular Response
Patient with a history of atrial fibrillation previously managed with sotalol, which was discontinued recently due to bradycardia.
She presented with A-fib with RVR and hypotension.
Heart rate is now reasonably controlled on IV diltiazem.
Continue rate control with Cardizem drip, titrate as tolerated by blood pressure.
Maintain anticoagulation with Xarelto.
Obtain echocardiogram (pending)
monitor renal function.
Cardiology consulted appreciate input.
03/22
Increase oral Cardizem
03/24
restarted sotalol
Sepsis with acute organ dysfunction
Sepsis secondary to pneumonia with acute organ dysfunction in form of acute respiratory failure/acute metabolic encephalopathy/lactic acidosis
Initially plan was to admit to IMU for close monitoring. But secondary to hypotension. Patient admitted to the ICU.
Reported fever >101�F at home in the setting of chronic lung disease.
Continue broad-spectrum antibiotic
(Zosyn started in ED), monitor blood cultures, and check Legionella and pneumococcal antigens.
Pulmonary consultation requested. Consider IV steroids now that rate control has improved.
Mental status improved.
Lactic acid resolved
Acute respiratory failure
Patient remains tachypneic with RR in the 30s, requiring supplemental oxygen.
Elevated BNP and crackles suggest new-onset CHF, likely precipitated by uncontrolled atrial fibrillation.
Avoid aggressive diuresis due to soft blood pressure.
Monitor for need of BiPAP. Pulmonary consulted for underlying bronchiectasis and interstitial lung disease.
Acute congestive Heart Failure (nonspecific type, combined)
New onset suspected based on elevated BNP, trace edema, and crackles.
Hold IV fluids, provide oxygen, and consider pressors if hypotension persists.
Echocardiogram
1. Normal left ventricular systolic function.
2. Estimated ejection fraction 55 to 60%.
3. Severe tricuspid regurgitation.
4. Estimated PA pressure 52 mmHg.
5. No prior study available for comparison.
S/P Lasix
Held for elevated creatinine
Elevated Troponin
Likely non-ischemic myocardial injury secondary to sepsis, hypoxia, and tachycardia.
Continue anticoagulation,
continue to trend troponin.
Cardiology following.
History of diabetes mellitus
Continue home medication
Insulin sliding scale
Diabetic diet
Hemoglobin A1c 7.5
CODE STATUS: Full code
DVT prophylaxis: Xarelto
Diet: DM diet
Disposition: Continue antibiotic, sotalol
Total time spent on today's encounter was 65 minutes which included time spent in counseling the patient/family regarding diagnosis and treatment plan as listed above, goals of care, and symptom management. Case was discussed with nursing staff,
specialists, and care coordinators/case management. All labs and imaging personally reviewed by me. Remainder the time spent in detailed review of previous records, lab data, imaging, and other medical provider documentation.
Anticipated Discharge: > 48 hours
Subjective/Interval History
-
Date of Service: March 24, 2025
Patient seen and examined at bedside, denies any chest pain , shortness of breath Improved, patient still tachycardic, no abdominal pain, no nausea, no vomiting, no diarrhea or constipation
Objective Data
-
Labs:
Laboratory Results
03/24/25
03:28
WBC 15.9 H
Hgb 10.5 L
Hct 30.6 L
Plt Count 307 D
Sodium 134 L
Potassium 4.2
Chloride 103
Carbon Dioxide 23
BUN 35 H
Creatinine 1.2 H
Glucose 95
Calcium 9.3
Vital Signs:
Vital Signs
Temp Pulse Resp BP Pulse Ox
97.0 F 95 32 131/76 966
03/24/25 11:00 03/24/25 13:45 03/24/25 08:00 03/24/25 13:45 03/24/25 08:56
I&O
03/23/25 03/24/25 03/25/25
06:59 06:59 06:59
Intake Total 800 / 800 720 / 720
Output Total 675 / 675 375 / 375 100 / 100
Balance 125 / 125 345 / 345 -100 / -100
Physical Exam
-
General: Well Developed, Well Nourished, No Apparent Distress and Comfortable
HEENT: Normocephalic, Atraumatic, Moist Mucous Membranes, No Ptosis, PERRLA and Nose Appears Normal
Respiratory: Rales, Rhonchi, Crackles and Non Labored Respirations
Cardiac: S1/S2, Irregular Rhythm and Tachycardic
Breast: Deferred by me
GI: Soft, Nontender, Nondistended and Normal Bowel Sounds
Genito-urinary: No Costovertebral Tender
Musculoskeletal: No Clubbing, No Cyanosis and No Edema
Skin: Warm
Neuro: Awake, Alert, Oriented, AO x 3 and No Motor Deficits
Psych: Calm
[2025-03-24] MEDS: BETAPACE 80 MG PO (14:25)
--- NOTE | 2025-03-24 14:39 | PN.DE.MGMTRT ---
Insulin Management
- -
03/24/2025 Diabetes Management Consult Follow up
89 year old patient admitted 03/21 with respiratory distress, elevated T 102, lactic acidosis, sepsis secondary to pneumonia. PMH chronic interstitial lung disease, recurrent pneumonia, chronic bronchitis, HTN, afib. Prior to admission was taking
metformin 500 mg with dinner. A1C 7.5%, cr 1.2, eGFR 43.81.
Patient is awake alert and oriented sitting out of bed in chair, no family at bedside. Patient is very talkative able to discuss diabetes care prior to admission. She states she does not have diabetes and doesn't want it so she eats carefully.
Patient was on prednisone at home, RX from primary doctor and glucose shot up to > 400.
Patient glucose range yesterday 113 to 194. Received 15 units NPH BID with 4 units novolog AC. Pre dinner glucose 66, patient did not receive evening NPH.
3AM glucose 95 fasting glucose today 97, pre lunch 211. Insulin stopped this AM. Prednisone has been decreased to 30 mg daily. Will continue Januvia 100 mg daily with moderate corrective insulin. Due to lactic acidosis will hold metformin.
Due to patient age and comorbidities and occasional glucose excursion is acceptable. Will follow closely for need for increase in corrective insulin
Diet has been decreased from 1800 calorie to 1600 calorie as patient is 4'11'.
Discussed with nurse.
Will follow.
Diabetes History
- -
Type of Diabetes: 2
Pre-Admission Diabetes Regimen
03/24/25
03:28
Creatinine 1.2 H
Lab Results
Hemoglobin A1c 7.5 % (4.0-5.9) H 03/22/25 04:46
Insulin Pump Settings
IP Diabetes Regimen
03/23/25 03/23/25 03/23/25
18:12 18:34 20:16
Glucose
POC Glucose 66 L 89 85
03/23/25 03/24/25 03/24/25
23:09 03:28 08:05
Glucose 95
POC Glucose 113 H 97
03/24/25
13:08
Glucose
POC Glucose 211 H
Meal type: Breakfast
Meal type: Lunch
Amount consumed: 100%
Amount consumed: 100%
Patient Education
[2025-03-24] MEDS: NOVOLOG FLEXPEN-MODERATE RESISTANCE 1 UNITS SC (17:31)
[2025-03-24 17:38] LABS: Glucose - Point of Care 191 mg/dl (70-99)
[2025-03-24] MEDS: REFRESH EYE DROPS (PF) 1 DROPS OPHTH (18:30)
[2025-03-24] MEDS: XARELTO 15 MG PO (18:30)
--- NOTE | 2025-03-24 21:18 | PTCARENOTE ---
Received pt from previous RN. Pt is AAOx3, anxious, forgetful at times. Afib on the monitor, LE trace edema. Received pt on RA O2 sat 87%, 2L NC placed on pt, O2 sat 99%, lungs coarse/crackles, tachypneic/MADRID. BSCx1. Call ty in reach. Safe
environment maintained.
[2025-03-24 21:44] LABS: Glucose - Point of Care 254 mg/dl (70-99)
--- NOTE | 2025-03-24 22:04 | PTCARENOTE ---
Pt voided, post void bladder scan 0 ml.
[2025-03-25] VITALS (10 sets, daily range): BP systolic 101–130; BP diastolic 62–88; O2SAT 93; BMI 22.9
[2025-03-25] MEDS: TUMS CHEWABLE TABLET 200 MG PO (02:35)
[2025-03-25 03:36] LABS: Hematocrit 29.4 % (37.0-47.0); Hemoglobin 9.7 g/dL (12.0-16.0); Mean Corp Hgb Conc. 33.0 g/dL (33.0-37.0); Mean Corpuscular Volume 87.2 fL (81.0-99.0); Platelet Count 291 10^3/uL (130-400); Red Cell Dist. Width 16.1 % (11.5-14.5)
[2025-03-25 05:44] LABS: Blood Urea Nitrogen 39 mg/dl (7-17); Calcium 9.2 mg/dl (8.4-10.2); Carbon Dioxide 28 mmol/L (22-30); Chloride 102 mmol/L (98-107); Estimated Creatinine Clearance 21 ml/min; Glucose 174 mg/dl (70-99); Potassium 4.4 mmol/L (3.5-5.1); Sodium 132 mmol/L (135-145); eGFR 39.80
[2025-03-25 07:36] LABS: Glucose - Point of Care 164 mg/dl (70-99)
[2025-03-25] MEDS: NOVOLOG FLEXPEN-MODERATE RESISTANCE 1 UNITS SC (07:36)
[2025-03-25] MEDS: PULMICORT 0.25 MG INH ×2 (07:37→19:29)
[2025-03-25] MEDS: DUONEB 3 ML INH ×2 (07:37→19:28)
--- NOTE | 2025-03-25 07:50 | PTCARENOTE ---
Patient received lying in bed. Patient assisted OOB to BSC with SBA, voids without difficulty. Abdomen soft and nontender. Assisted to chair. Gait slow but steady, transfers steadily. See rehabilitation services aide charted on worklist flowsheet. BBS clear
anteriorly, BBS with coarse crackles posteriorly and expiratory wheezes EDNA posteriorly. Sats 87% with trial on RA, oxygen at 2L/nc replaced; sats improved to 95%. Patient is A&O x3 but forgetful at times. Pleasant and cooperative. S1S2 irregular
with postiive murmur and positive click. Afib on CM. Takes po meds with applesauce and water well, swallows deliberately with pills but no s/sx of aspiration. Pedal pulses diminished but palpable, Trace-1+ ankle edema. IV sites bilateral wrists
flush easily. Chair locked, chair alarm on, call ty within reach.
[2025-03-25] MEDS: JANUVIA 100 MG PO (07:59)
[2025-03-25] MEDS: DELTASONE 30 MG PO (07:59)
[2025-03-25] MEDS: VITAMIN B1 100 MG PO (07:59)
[2025-03-25] MEDS: CARDIZEM 60 MG PO ×3 (07:59→22:09)
[2025-03-25] MEDS: VIBRAMYCIN 100 MG PO ×2 (07:59→22:09)
[2025-03-25] MEDS: BETAPACE 80 MG PO (08:01)
--- NOTE | 2025-03-25 08:34 | PN.DE.MGMTRT ---
Insulin Management
- -
03/25/2025 Diabetes Management Consult Follow up
89 year old patient admitted 03/21 with respiratory distress, elevated T 102, lactic acidosis, sepsis secondary to pneumonia. PMH chronic interstitial lung disease, recurrent pneumonia, chronic bronchitis, HTN, afib. Prior to admission was taking
metformin 500 mg with dinner. A1C 7.5%, cr 1.3, eGFR 39.80.
Patient is awake alert and oriented sitting out of bed in chair, no family at bedside. Patient is very talkative able to discuss diabetes care prior to admission. She states she does not have diabetes and doesn't want it so she eats carefully.
Patient was on prednisone at home, RX from primary doctor and glucose shot up to > 400.
Patient glucose range yesterday 97 to 254. Prednisone now 30 mg daily. Will continue Januvia 100 mg daily with moderate corrective insulin. Due to lactic acidosis will hold metformin.
Due to patient age and comorbidities and occasional glucose excursion is acceptable. Will follow closely for need for increase in corrective insulin
Diet has been decreased from 1800 calorie to 1600 calorie as patient is 4'11'.
Discussed with nurse.
Will follow.
Diabetes History
- -
Type of Diabetes: 2
Pre-Admission Diabetes Regimen
03/25/25 03/25/25
03:26 05:10
Creatinine Cancelled 1.3 H
Lab Results
Hemoglobin A1c 7.5 % (4.0-5.9) H 03/22/25 04:46
Insulin Pump Settings
IP Diabetes Regimen
03/24/25 03/24/25 03/24/25
13:08 17:26 21:43
Glucose
POC Glucose 211 H 191 H 254 H
03/25/25 03/25/25 03/25/25
03:26 05:10 07:34
Glucose Cancelled 174 H
POC Glucose 164 H
Meal type: Dinner
Meal type: Lunch
Meal type: Breakfast
Amount consumed: 100%
Amount consumed: 100%
Amount consumed: 100%
Patient Education
[2025-03-25] MEDS: MIRALAX PO ×2 (11:40→12:00)
[2025-03-25] MEDS: ROCEPHIN 1000 MG IV (11:40)
[2025-03-25] MEDS: STERILE WATER FOR INJECTION 10 ML IV (11:41)
[2025-03-25] MEDS: NOVOLOG FLEXPEN-MODERATE RESISTANCE 3 UNITS SC ×2 (11:44→18:00)
[2025-03-25 11:45] LABS: Glucose - Point of Care 201 mg/dl (70-99)
--- NOTE | 2025-03-25 12:51 | W.PN.CD ---
Today's Communication / Plan
-
Continue current cardiac regimen
Consider a trial of IV Lasix
Watch AFib rates, fine now, may need to adjust dilt dose
- If cardioversion pursued hold Dilt night before and AM of cardioversion
Impression / Plan
-
Suspected sepsis/Possible PNA
- Now on doxycycline
- Steroid taper
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
Elevated pBNP
- 4940 on admit 03/21/2025 with Cr 1.
- CXR was not read as heart failure
- Crackles on exam could be from her lung disease
- No Lasix has been given so far
- No objection to a trial of Lasix
Persistent AFib
- Only AFib here
- Rates were fast, now rates OK
- On Xarelto as outpatient
- Has had cardioversions in the past, has been on sotalol in the past
- Last known to have been in sinus on 01/12/2025 by Epic Chart Review by CHRIS Hoffman
- Dr. Alonso started sotalol 80 mg one time daily, first dose 03/24/2025 => thoughts of pursuing rhythm control (cardioversion) when medical status improved
Pulmonary HTN, here est PASP 52 mmHg => suspect from lung disease, could be mixed etiology
Nonischemic myocardial injury from suspected infection, fever, low BP, elevated lactic acid, fast AFib, peak trop 0.221 on 03/21/2025
Hx of carotid stenting
HTN
DM
Subjective: No CP or dyspnea, on O2 with good sats, AFib rates OK
Data:
Echo 03/21/2025:
SUMMARY
1. Normal left ventricular systolic function.
2. Estimated ejection fraction 55 to 60%.
3. Severe tricuspid regurgitation.
4. Estimated PA pressure 52 mmHg.
5. No prior study available for comparison.
CXR
IMPRESSION:
1. Findings suggestive of moderate interstitial fibrosis.
2. Hazy opacity at the left lung base. Differential diagnosis includes pneumonia, aspiration, and focal interstitial fibrosis.
Physical Exam
Vital Signs/Labs
Vital Signs
Temp Pulse Resp BP Pulse Ox
97 F 63 32 130/65 97
03/25/25 11:40 03/25/25 12:00 03/25/25 12:00 03/25/25 12:00 03/25/25 12:00
03/24/25 03/25/25 03/26/25
06:59 06:59 06:59
Actual Weight 50.2 kg 51.3 kg
03/25/25 03:26
03/25/25 05:10
PT 40.4 Sec (11.4-14.6) H 03/21/25 09:05
INR 4.15 03/21/25 09:05
APTT 47.1 Sec (23.4-35.0) H 03/21/25 09:05
Magnesium 2.2 mg/dl (1.6-2.3) 03/22/25 04:46
03/21/25
03:25
Oon-W-Kmtrjagdnsy Pept 4940
Physical Exam
Constitutional: No acute distress
EENT: Anicteric
Cardiovascular: JVD pressure is normal, Rhythm/rate is irregular and Rub absent
Respiratory: Respiratory effort normal and Crackles Present
GI: Soft and Distention absent
Neuro/Psych: AO x 3
Data Reviewed
-
Date of Service: March 25, 2025
[2025-03-25] MEDS: CARDIZEM PO (13:01)
--- NOTE | 2025-03-25 14:09 | W.PN.HOSP.TC ---
Today's Communication/Plan
-
Repeat chest x-ray
Assessment / Plan
Assessment / Plan
Impression:
patient is 89-year-old woman with a history of atrial fibrillation on Xarelto, previously maintained on sotalol, hypertension, interstitial lung disease, diabetes, and prior carotid stenting presented after an episode of near-syncope and decreased
responsiveness. According to her daughter, the patient had been feeling unwell for approximately one week following a recent hospitalization and fall. She was treated with a methylprednisolone taper for respiratory symptoms but developed erratic
heart rates, including bradycardia, leading to discontinuation of sotalol and amlodipine. Over the past several days, she experienced intermittent fevers, chills, and worsening fatigue. On the day of admission, she was found unresponsive at home;
EMS noted atrial fibrillation with rapid ventricular response (HR ~190) and hypotension. She received IV fluids and a bolus of diltiazem, followed by a continuous infusion, with improvement in heart rate. In the ED, she remained somnolent but
arousable, tachycardic (HR 120�150), hypotensive (BP 79�100/42�61), tachypneic (RR low 30s), and hypoxic (SpO? 93% on 2 L). She was febrile earlier at home (101.9�F) but afebrile on arrival. Labs revealed elevated troponin (0.112), BNP (4900),
lactic acid (3.0), mild hyponatremia (Na 130), and anemia (Hgb 10.8). ECG confirmed atrial fibrillation with RVR. Chest imaging showed chronic changes without acute infiltrates. She was admitted to the ICU for rate control and hemodynamic monitoring.
When I saw the patient in the ER her blood pressure and heart rate improved, and she is more awake and oriented.
Patient was still tachycardic, switched Cardizem to oral and increased dose by cardiology, blood pressure improved and cardiology commending diuresis.
Restart sotalol
Patient was hypoxic will order chest x-ray.
Assessment/plan:
Atrial Fibrillation with Rapid Ventricular Response
Patient with a history of atrial fibrillation previously managed with sotalol, which was discontinued recently due to bradycardia.
She presented with A-fib with RVR and hypotension.
Heart rate is now reasonably controlled on IV diltiazem.
Continue rate control with Cardizem drip, titrate as tolerated by blood pressure.
Maintain anticoagulation with Xarelto.
Obtain echocardiogram (pending)
monitor renal function.
Cardiology consulted appreciate input.
03/22
Increase oral Cardizem
03/24
restarted sotalol
03/25
Heart rate improved
Sepsis with acute organ dysfunction
Sepsis secondary to pneumonia with acute organ dysfunction in form of acute respiratory failure/acute metabolic encephalopathy/lactic acidosis
Initially plan was to admit to IMU for close monitoring. But secondary to hypotension. Patient admitted to the ICU.
Reported fever >101�F at home in the setting of chronic lung disease.
Continue broad-spectrum antibiotic
(Zosyn started in ED), monitor blood cultures, and check Legionella and pneumococcal antigens.
Pulmonary consultation requested. Consider IV steroids now that rate control has improved.
Mental status improved.
Lactic acid resolved
Acute respiratory failure
Patient remains tachypneic with RR in the 30s, requiring supplemental oxygen.
Elevated BNP and crackles suggest new-onset CHF, likely precipitated by uncontrolled atrial fibrillation.
Avoid aggressive diuresis due to soft blood pressure.
Monitor for need of BiPAP. Pulmonary consulted for underlying bronchiectasis and interstitial lung disease.
03/25
Dropped oxygen on room air.
Repeat chest x ray
Acute congestive Heart Failure (nonspecific type, combined)
New onset suspected based on elevated BNP, trace edema, and crackles.
Hold IV fluids, provide oxygen, and consider pressors if hypotension persists.
Echocardiogram
1. Normal left ventricular systolic function.
2. Estimated ejection fraction 55 to 60%.
3. Severe tricuspid regurgitation.
4. Estimated PA pressure 52 mmHg.
5. No prior study available for comparison.
S/P Lasix
Held for elevated creatinine
Elevated Troponin
Likely non-ischemic myocardial injury secondary to sepsis, hypoxia, and tachycardia.
Continue anticoagulation,
continue to trend troponin.
Cardiology following.
History of diabetes mellitus
Continue home medication
Insulin sliding scale
Diabetic diet
Hemoglobin A1c 7.5
CODE STATUS: Full code
DVT prophylaxis: Xarelto
Diet: DM diet
Disposition: Repeat chest x ray
Total time spent on today's encounter was 65 minutes which included time spent in counseling the patient/family regarding diagnosis and treatment plan as listed above, goals of care, and symptom management. Case was discussed with nursing staff,
specialists, and care coordinators/case management. All labs and imaging personally reviewed by me. Remainder the time spent in detailed review of previous records, lab data, imaging, and other medical provider documentation.
Anticipated Discharge: > 48 hours
Subjective/Interval History
-
Date of Service: March 25, 2025
Patient seen and examined at bedside, denies any chest pain , heart rate improved, patient dropped oxygen to 83% on room air but overall shortness of breath Improved, no abdominal pain, no nausea, no vomiting, no diarrhea or constipation.
Will obtain chest x-ray.
Objective Data
-
Labs:
Laboratory Results
03/25/25 03/25/25
03:26 05:10
WBC 12.5 H
Hgb 9.7 L
Hct 29.4 L
Plt Count 291
Sodium Cancelled 132 L
Potassium Cancelled 4.4
Chloride Cancelled 102
Carbon Dioxide Cancelled 28
BUN Cancelled 39 H
Creatinine Cancelled 1.3 H
Glucose Cancelled 174 H
Calcium Cancelled 9.2
Vital Signs:
Vital Signs
Temp Pulse Resp BP Pulse Ox
97 F 64 27 115/88 94
03/25/25 11:40 03/25/25 13:02 03/25/25 13:02 03/25/25 13:02 03/25/25 13:02
I&O
03/24/25 03/25/25 03/26/25
06:59 06:59 06:59
Intake Total 720 / 720 50 / 50 240 / 240
Output Total 375 / 375 100 / 100 400 / 400
Balance 345 / 345 -50 / -50 -160 / -160
Physical Exam
-
General: Well Developed, Well Nourished, No Apparent Distress and Comfortable
HEENT: Normocephalic, Atraumatic, Moist Mucous Membranes, No Ptosis, PERRLA and Nose Appears Normal
Respiratory: Rales, Rhonchi, Crackles and Non Labored Respirations
Cardiac: S1/S2, Irregular Rhythm and Tachycardic
Breast: Deferred by me
GI: Soft, Nontender, Nondistended and Normal Bowel Sounds
Genito-urinary: No Costovertebral Tender
Musculoskeletal: No Clubbing, No Cyanosis and No Edema
Skin: Warm
Neuro: Awake, Alert, Oriented, AO x 3 and No Motor Deficits
Psych: Calm
--- NOTE | 2025-03-25 15:00 | CM ---
Chart reviewed
Spoke with patient at ICU bedside
Pt states her afib is better controlled
cardiology consulted
Wants to go home with dtr when cleared
will continue to follow up for dcp needs
[2025-03-25 17:54] LABS: Glucose - Point of Care 205 mg/dl (70-99)
[2025-03-25] MEDS: XARELTO 15 MG PO (18:02)
--- NOTE | 2025-03-25 18:37 | PTCARENOTE ---
Report called verbally to Dina BARRON. 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 Patient transferred via wheelchair accompanied by RN. Belongings sent.
[2025-03-25 21:07] LABS: Glucose - Point of Care 221 mg/dl (70-99)
--- NOTE | 2025-03-25 21:42 | VATNOTE ---
LATE ENTRY: called to redress both IV sites after transfer from ICU; upon removing right wrist IV site; site continued to bleed for 25min. Quik Clot attempted without success and then surgifoam applied with 4x4, chel wrap and then ice. Elevated
forearm as well. VAT to follow and PCNYadi will monitor throughout the night.
--- NOTE | 2025-03-25 21:52 | VATNOTE ---
rechecked right wrist IV site for any bleeding under surgifoam now @ 2150; no active bleeding noted. Rewrapped with chel less tight however. pt wants to continue keeping ice bag over site.
[2025-03-26 03:11] VITALS: BP 124/84
[2025-03-26 05:42] VITALS: BMI 22.9
[2025-03-26 07:35] VITALS: BP 136/87
[2025-03-26] MEDS: DUONEB 3 ML INH ×2 (07:35→19:24)
[2025-03-26] MEDS: PULMICORT 0.25 MG INH ×2 (07:36→19:24)
[2025-03-26 08:07] LABS: Glucose - Point of Care 128 mg/dl (70-99)
[2025-03-26 08:13] LABS: Hematocrit 32.1 % (37.0-47.0); Hemoglobin 11.2 g/dL (12.0-16.0); Mean Corp Hgb Conc. 34.9 g/dL (33.0-37.0); Mean Corpuscular Volume 87.5 fL (81.0-99.0); Platelet Count 327 10^3/uL (130-400); Red Cell Dist. Width 16.1 % (11.5-14.5)
[2025-03-26 08:44] LABS: Blood Urea Nitrogen 34 mg/dl (7-17); Calcium 9.5 mg/dl (8.4-10.2); Carbon Dioxide 26 mmol/L (22-30); Chloride 103 mmol/L (98-107); Estimated Creatinine Clearance 27 ml/min; Glucose 123 mg/dl (70-99); Potassium 4.1 mmol/L (3.5-5.1); Sodium 134 mmol/L (135-145); eGFR 54.53
[2025-03-26] MEDS: NOVOLOG FLEXPEN-MODERATE RESISTANCE SC (09:11)
[2025-03-26] MEDS: BETAPACE 80 MG PO (09:13)
[2025-03-26] MEDS: VIBRAMYCIN 100 MG PO ×2 (09:22→22:07)
[2025-03-26] MEDS: MIRALAX 17 GRAMS PO (09:22)
[2025-03-26] MEDS: JANUVIA 100 MG PO (09:22)
[2025-03-26] MEDS: VITAMIN B1 100 MG PO (09:32)
[2025-03-26] MEDS: CARDIZEM 60 MG PO (09:32)
[2025-03-26] MEDS: DELTASONE 20 MG PO (09:32)
[2025-03-26 11:25] VITALS: BP 106/79
[2025-03-26 11:53] LABS: Glucose - Point of Care 177 mg/dl (70-99)
[2025-03-26] MEDS: STERILE WATER FOR INJECTION IV (12:35)
[2025-03-26] MEDS: NOVOLOG FLEXPEN-MODERATE RESISTANCE 1 UNITS SC (12:36)
--- NOTE | 2025-03-26 13:18 | W.PN.HOSP.TC ---
Today's Communication/Plan
-
Continue improvement specialist
Patient still in A-fib, possible cardioversion on Friday
Assessment / Plan
Assessment / Plan
Impression:
patient is 89-year-old woman with a history of atrial fibrillation on Xarelto, previously maintained on sotalol, hypertension, interstitial lung disease, diabetes, and prior carotid stenting presented after an episode of near-syncope and decreased
responsiveness. According to her daughter, the patient had been feeling unwell for approximately one week following a recent hospitalization and fall. She was treated with a methylprednisolone taper for respiratory symptoms but developed erratic
heart rates, including bradycardia, leading to discontinuation of sotalol and amlodipine. Over the past several days, she experienced intermittent fevers, chills, and worsening fatigue. On the day of admission, she was found unresponsive at home;
EMS noted atrial fibrillation with rapid ventricular response (HR ~190) and hypotension. She received IV fluids and a bolus of diltiazem, followed by a continuous infusion, with improvement in heart rate. In the ED, she remained somnolent but
arousable, tachycardic (HR 120�150), hypotensive (BP 79�100/42�61), tachypneic (RR low 30s), and hypoxic (SpO? 93% on 2 L). She was febrile earlier at home (101.9�F) but afebrile on arrival. Labs revealed elevated troponin (0.112), BNP (4900),
lactic acid (3.0), mild hyponatremia (Na 130), and anemia (Hgb 10.8). ECG confirmed atrial fibrillation with RVR. Chest imaging showed chronic changes without acute infiltrates. She was admitted to the ICU for rate control and hemodynamic monitoring.
When I saw the patient in the ER her blood pressure and heart rate improved, and she is more awake and oriented.
Patient was still tachycardic, switched Cardizem to oral and increased dose by cardiology, blood pressure improved and cardiology commending diuresis.
Restart sotalol
Patient was hypoxic repeat chest x-ray shows:
Prominence of the interstitial markings bilaterally concerning for pulmonary edema versus more likely chronic interstitial lung disease with superimposed bilateral lower lobe pneumonia. Progressed.
Mild cardiomegaly. Stable
Hypoxia improved and currently on room air.
Heart rate improved but still in A fib
Assessment/plan:
Atrial Fibrillation with Rapid Ventricular Response
Patient with a history of atrial fibrillation previously managed with sotalol, which was discontinued recently due to bradycardia.
She presented with A-fib with RVR and hypotension.
Heart rate is now reasonably controlled on IV diltiazem.
Continue rate control with Cardizem drip, titrate as tolerated by blood pressure.
Maintain anticoagulation with Xarelto.
Obtain echocardiogram (pending)
monitor renal function.
Cardiology consulted appreciate input.
03/22
Increase oral Cardizem
03/24
restarted sotalol
03/25
Heart rate improved
03/26
Heart rate continue to improve but patient still in A-fib.
Follows cardiology recommendations regarding cardioversion
Sepsis with acute organ dysfunction
Sepsis secondary to pneumonia with acute organ dysfunction in form of acute respiratory failure/acute metabolic encephalopathy/lactic acidosis
Initially plan was to admit to IMU for close monitoring. But secondary to hypotension. Patient admitted to the ICU.
Reported fever >101�F at home in the setting of chronic lung disease.
Continue broad-spectrum antibiotic
(Zosyn started in ED), monitor blood cultures, and check Legionella and pneumococcal antigens.
Consulted pulmonology antibiotics switched to Rocephin and doxycycline
Patient completed 3 days of Zosyn, and 3 days with Rocephin antibiotics
Currently on doxycycline to complete 5 days
Mental status improved.
Lactic acid resolved
Acute respiratory failure
Patient remains tachypneic with RR in the 30s, requiring supplemental oxygen.
Elevated BNP and crackles suggest new-onset CHF, likely precipitated by uncontrolled atrial fibrillation.
Avoid aggressive diuresis due to soft blood pressure.
Monitor for need of BiPAP. Pulmonary consulted for underlying bronchiectasis and interstitial lung disease.
03/25
Dropped oxygen on room air.
Repeat chest x ray
03/26
chest x-ray shows:
Prominence of the interstitial markings bilaterally concerning for pulmonary edema versus more likely chronic interstitial lung disease with superimposed bilateral lower lobe pneumonia. Progressed.
Mild cardiomegaly. Stable
Hypoxia improved and currently on room air.
Acute congestive Heart Failure (nonspecific type, combined)
New onset suspected based on elevated BNP, trace edema, and crackles.
Hold IV fluids, provide oxygen, and consider pressors if hypotension persists.
Echocardiogram
1. Normal left ventricular systolic function.
2. Estimated ejection fraction 55 to 60%.
3. Severe tricuspid regurgitation.
4. Estimated PA pressure 52 mmHg.
5. No prior study available for comparison.
S/P Lasix
Held for elevated creatinine
Elevated Troponin
Likely non-ischemic myocardial injury secondary to sepsis, hypoxia, and tachycardia.
Continue anticoagulation,
continue to trend troponin.
Cardiology following.
History of diabetes mellitus
Continue home medication
Insulin sliding scale
Diabetic diet
Hemoglobin A1c 7.5
CODE STATUS: Full code
DVT prophylaxis: Xarelto
Diet: DM diet
Disposition: Continue improvement specialist
Patient still in A-fib, possible cardioversion on Friday
Total time spent on today's encounter was 65 minutes which included time spent in counseling the patient/family regarding diagnosis and treatment plan as listed above, goals of care, and symptom management. Case was discussed with nursing staff,
specialists, and care coordinators/case management. All labs and imaging personally reviewed by me. Remainder the time spent in detailed review of previous records, lab data, imaging, and other medical provider documentation.
Anticipated Discharge: > 48 hours
Subjective/Interval History
-
Date of Service: March 26, 2025
Patient seen and examined at bedside, denies any chest pain , shortness of breath Improved currently room air, no abdominal pain, no nausea, no vomiting, no diarrhea or constipation.
lower extremity edema improved.
Objective Data
-
Labs:
Laboratory Results
03/26/25
07:06
WBC 12.2 H
Hgb 11.2 L
Hct 32.1 L
Plt Count 327
Sodium 134 L
Potassium 4.1
Chloride 103
Carbon Dioxide 26
BUN 34 H
Creatinine 1.0
Glucose 123 H
Calcium 9.5
Vital Signs:
Vital Signs
Temp Pulse Resp BP Pulse Ox
98.0 F 96 18 106/79 95
03/26/25 11:25 03/26/25 11:25 03/26/25 11:25 03/26/25 11:25 03/26/25 11:25
I&O
03/25/25 03/26/25 03/27/25
06:59 06:59 06:59
Intake Total 50 / 50 480 / 480
Output Total 100 / 100 550 / 550
Balance -50 / -50 -70 / -70
Physical Exam
-
General: Well Developed, Well Nourished, No Apparent Distress and Comfortable
HEENT: Normocephalic, Atraumatic, Moist Mucous Membranes, No Ptosis, PERRLA and Nose Appears Normal
Respiratory: Rales, Rhonchi, Crackles and Non Labored Respirations
Cardiac: S1/S2, Irregular Rhythm and Tachycardic
Breast: Deferred by me
GI: Soft, Nontender, Nondistended and Normal Bowel Sounds
Genito-urinary: No Costovertebral Tender
Musculoskeletal: No Clubbing, No Cyanosis and No Edema
Skin: Warm
Neuro: Awake, Alert, Oriented, AO x 3 and No Motor Deficits
Psych: Calm
[2025-03-26] MEDS: CARDIZEM PO (13:52)
[2025-03-26 15:25] VITALS: BP 115/79
--- NOTE | 2025-03-26 16:33 | W.PN.CD ---
Today's Communication / Plan
-
continue sotalol 80mg daily, xarelto 15mg daily
change diltiazem to ER 240mg daily
Impression / Plan
-
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
-with suspected PNA this admission: improved
Persistent AFib
- Only AFib here
- Rates were fast, now rates OK
- On Xarelto 15mg daily, in setting of CrCl under 50
- Has had cardioversions in the past, has been on sotalol in the past
- Last known to have been in sinus on 01/12/2025 by [facility] Chart Review by CHRIS Hoffman
- Dr. Alonso started sotalol 80 mg one time daily, first dose 03/24/2025 (daily renal dosing)
-change diltiazem to ER 240mg daily
-she does not want DCCV here: has f/u with her delicatessen manager on 04/01
Pulmonary HTN, here est PASP 52 mmHg => suspect from lung disease, could be mixed etiology
Nonischemic myocardial injury from suspected infection, fever, low BP, elevated lactic acid, fast AFib, peak trop 0.221 on 03/21/2025
Hx of carotid stenting
HTN
DM
Data:
Echo 03/21/2025:
SUMMARY
1. Normal left ventricular systolic function.
2. Estimated ejection fraction 55 to 60%.
3. Severe tricuspid regurgitation.
4. Estimated PA pressure 52 mmHg.
5. No prior study available for comparison.
CXR
IMPRESSION:
1. Findings suggestive of moderate interstitial fibrosis.
2. Hazy opacity at the left lung base. Differential diagnosis includes pneumonia, aspiration, and focal interstitial fibrosis.
Physical Exam
Vital Signs/Labs
Vital Signs
Temp Pulse Resp BP Pulse Ox
98.0 F 76 17 115/79 93
03/26/25 15:25 03/26/25 15:25 03/26/25 15:25 03/26/25 15:25 03/26/25 15:25
03/25/25 03/26/25 03/27/25
06:59 06:59 06:59
Actual Weight 51.3 kg 51.426 kg
03/26/25 07:06
03/26/25 07:06
PT 40.4 Sec (11.4-14.6) H 03/21/25 09:05
INR 4.15 03/21/25 09:05
APTT 47.1 Sec (23.4-35.0) H 03/21/25 09:05
Magnesium 2.2 mg/dl (1.6-2.3) 03/22/25 04:46
03/21/25
03:25
Uqq-I-Rjnunlvcuod Pept 4940
Physical Exam
Constitutional: No acute distress and Comfortable
EENT: Anicteric
Cardiovascular: Pedal edema is absent, JVD pressure is normal, Systolic murmur absent and Rhythm/rate is irregular
Respiratory: Respiratory effort normal and Lungs clear to auscul.
Neuro/Psych: AO x 3
Data Reviewed
-
Date of Service: March 26, 2025
EKG: Other (Tele: A fib )
Labs: Labs Reviewed by me
[2025-03-26 17:00] LABS: Glucose - Point of Care 247 mg/dl (70-99)
[2025-03-26] MEDS: NOVOLOG FLEXPEN-MODERATE RESISTANCE 3 UNITS SC (17:23)
[2025-03-26] MEDS: XARELTO 15 MG PO (17:32)
[2025-03-26 20:07] VITALS: BP 117/79
[2025-03-26 23:08] VITALS: BP 152/75
[2025-03-27 03:24] VITALS: BP 142/72
[2025-03-27 05:48] VITALS: BMI 22.5
[2025-03-27 07:48] LABS: Glucose - Point of Care 109 mg/dl (70-99)
[2025-03-27] MEDS: NOVOLOG FLEXPEN-MODERATE RESISTANCE SC (07:50)
[2025-03-27 07:58] VITALS: BP 135/99
[2025-03-27 08:00] VITALS: BMI 22.5
[2025-03-27] MEDS: PULMICORT INH (08:07)
[2025-03-27] MEDS: MIRALAX PO (08:09)
[2025-03-27] MEDS: VIBRAMYCIN 100 MG PO ×2 (08:10→20:47)
[2025-03-27] MEDS: VITAMIN B1 100 MG PO (08:10)
[2025-03-27] MEDS: CARDIZEM CD 240 MG PO (08:10)
[2025-03-27] MEDS: DELTASONE 20 MG PO (08:10)
[2025-03-27] MEDS: BETAPACE 80 MG PO (08:10)
[2025-03-27] MEDS: JANUVIA 100 MG PO (08:10)
[2025-03-27] MEDS: PULMICORT 0.25 MG INH ×2 (08:19→19:23)
[2025-03-27 08:32] LABS: Hematocrit 34.0 % (37.0-47.0); Hemoglobin 11.2 g/dL (12.0-16.0); Mean Corp Hgb Conc. 32.9 g/dL (33.0-37.0); Mean Corpuscular Volume 88.1 fL (81.0-99.0); Platelet Count 315 10^3/uL (130-400); Red Cell Dist. Width 16.1 % (11.5-14.5)
[2025-03-27 08:43] LABS: Blood Urea Nitrogen 25 mg/dl (7-17); Calcium 9.5 mg/dl (8.4-10.2); Carbon Dioxide 30 mmol/L (22-30); Chloride 103 mmol/L (98-107); Estimated Creatinine Clearance 34 ml/min; Glucose 112 mg/dl (70-99); Potassium 4.0 mmol/L (3.5-5.1); Sodium 137 mmol/L (135-145); eGFR > 60.00
[2025-03-27 11:27] VITALS: BP 130/73
--- NOTE | 2025-03-27 11:58 | W.PN.CD ---
Today's Communication / Plan
-
continue sotalol and xarelto
she declines DCCV here; she has follow up with her information strategist next week
Impression / Plan
-
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
-with suspected PNA this admission: improved
Persistent AFib
- 100% AFib here
- Rates were fast, now rates OK
- On Xarelto 15mg daily, in setting of CrCl under 50
- Has had cardioversions in the past, has been on sotalol in the past
- Last known to have been in sinus on 01/12/2025 by [facility] Chart Review by CHRIS Hoffman
- Dr. Alonso started sotalol 80 mg one time daily, first dose 03/24/2025 (daily renal dosing)
-cont diltiazem ER 240mg daily
-she does not want DCCV here: has f/u with her information strategist on 04/01
Pulmonary HTN, here est PASP 52 mmHg => suspect from lung disease, could be mixed etiology
Nonischemic myocardial injury from suspected infection, fever, low BP, elevated lactic acid, fast AFib, peak trop 0.221 on 03/21/2025
Hx of carotid stenting
HTN
DM
Data:
Echo 03/21/2025:
SUMMARY
1. Normal left ventricular systolic function.
2. Estimated ejection fraction 55 to 60%.
3. Severe tricuspid regurgitation.
4. Estimated PA pressure 52 mmHg.
5. No prior study available for comparison.
CXR
IMPRESSION:
1. Findings suggestive of moderate interstitial fibrosis.
2. Hazy opacity at the left lung base. Differential diagnosis includes pneumonia, aspiration, and focal interstitial fibrosis.
Physical Exam
Vital Signs/Labs
Vital Signs
Temp Pulse Resp BP Pulse Ox
97.4 F 109 16 130/73 94
12/14/25 11:27 03/27/25 11:27 03/27/25 11:27 03/27/25 11:27 03/27/25 11:27
03/26/25 03/27/25 03/28/25
06:59 06:59 06:59
Actual Weight 51.426 kg 50.491 kg
03/27/25 07:20
03/27/25 07:20
PT 40.4 Sec (11.4-14.6) H 03/21/25 09:05
INR 4.15 03/21/25 09:05
APTT 47.1 Sec (23.4-35.0) H 03/21/25 09:05
Magnesium 2.2 mg/dl (1.6-2.3) 03/22/25 04:46
03/21/25
03:25
Old-Z-Mvghyngfyhq Pept 4940
Physical Exam
Constitutional: No acute distress and Comfortable
EENT: Moist mucous membranes
Cardiovascular: Pedal edema is absent, JVD pressure is normal, Rhythm/rate is irregular and Systolic murmur present
Respiratory: Respiratory effort normal
Neuro/Psych: AO x 3
Data Reviewed
-
Date of Service: March 27, 2025
EKG: Other (Tele: A fib, avg HR 100)
Labs: Labs Reviewed by me
[2025-03-27 12:27] LABS: Glucose - Point of Care 183 mg/dl (70-99)
[2025-03-27] MEDS: STERILE WATER FOR INJECTION IV (12:38)
[2025-03-27] MEDS: NOVOLOG FLEXPEN-MODERATE RESISTANCE 1 UNITS SC (12:40)
--- NOTE | 2025-03-27 13:09 | W.PN.HOSP.TC ---
Today's Communication/Plan
-
Continue monitor car operator
Continue sotalol 80 mg daily.
Continue Cardizem 240 mg daily.
Repeat EKG in a.m
Hopefully discharge home with home PT tomorrow if cleared by cardiology.
Assessment / Plan
Assessment / Plan
Impression:
patient is 89-year-old woman with a history of atrial fibrillation on Xarelto, previously maintained on sotalol, hypertension, interstitial lung disease, diabetes, and prior carotid stenting presented after an episode of near-syncope and decreased
responsiveness. According to her daughter, the patient had been feeling unwell for approximately one week following a recent hospitalization and fall. She was treated with a methylprednisolone taper for respiratory symptoms but developed erratic
heart rates, including bradycardia, leading to discontinuation of sotalol and amlodipine. Over the past several days, she experienced intermittent fevers, chills, and worsening fatigue. On the day of admission, she was found unresponsive at home;
EMS noted atrial fibrillation with rapid ventricular response (HR ~190) and hypotension. She received IV fluids and a bolus of diltiazem, followed by a continuous infusion, with improvement in heart rate. In the ED, she remained somnolent but
arousable, tachycardic (HR 120�150), hypotensive (BP 79�100/42�61), tachypneic (RR low 30s), and hypoxic (SpO? 93% on 2 L). She was febrile earlier at home (101.9�F) but afebrile on arrival. Labs revealed elevated troponin (0.112), BNP (4900),
lactic acid (3.0), mild hyponatremia (Na 130), and anemia (Hgb 10.8). ECG confirmed atrial fibrillation with RVR. Chest imaging showed chronic changes without acute infiltrates. She was admitted to the ICU for rate control and hemodynamic monitoring.
When I saw the patient in the ER her blood pressure and heart rate improved, and she is more awake and oriented.
Patient was still tachycardic, switched Cardizem to oral and increased dose by cardiology, blood pressure improved and cardiology commending diuresis.
Restart sotalol
Patient was hypoxic repeat chest x-ray shows:
Prominence of the interstitial markings bilaterally concerning for pulmonary edema versus more likely chronic interstitial lung disease with superimposed bilateral lower lobe pneumonia. Progressed.
Mild cardiomegaly. Stable
Hypoxia improved and currently on room air.
Heart rate improved but still in A fib
Patient refused cardioversion, continue to monitor sotalol daily EKG.
Assessment/plan:
Atrial Fibrillation with Rapid Ventricular Response
Patient with a history of atrial fibrillation previously managed with sotalol, which was discontinued recently due to bradycardia.
She presented with A-fib with RVR and hypotension.
Heart rate is now reasonably controlled on IV diltiazem.
Continue rate control with Cardizem drip, titrate as tolerated by blood pressure.
Maintain anticoagulation with Xarelto.
Obtain echocardiogram (pending)
monitor renal function.
Cardiology consulted appreciate input.
03/22
Increase oral Cardizem
03/24
restarted sotalol
03/25
Heart rate improved
03/26
Heart rate continue to improve but patient still in A-fib.
Follows cardiology recommendations regarding cardioversion
03/27
Patient refusing cardioversion.
Currently on diltiazem to 40 mg daily and sotalol 80 mg daily.
Repeat EKG tomorrow morning
Sepsis with acute organ dysfunction
Sepsis secondary to pneumonia with acute organ dysfunction in form of acute respiratory failure/acute metabolic encephalopathy/lactic acidosis
Initially plan was to admit to IMU for close monitoring. But secondary to hypotension. Patient admitted to the ICU.
Reported fever >101�F at home in the setting of chronic lung disease.
Continue broad-spectrum antibiotic
(Zosyn started in ED), monitor blood cultures, and check Legionella and pneumococcal antigens.
Consulted pulmonology antibiotics switched to Rocephin and doxycycline
Patient completed 3 days of Zosyn, and 3 days with Rocephin antibiotics
Currently on doxycycline to complete 5 days
Mental status improved.
Lactic acid resolved
03/27
Doxycycline to be completed tomorrow
Acute respiratory failure
Patient remains tachypneic with RR in the 30s, requiring supplemental oxygen.
Elevated BNP and crackles suggest new-onset CHF, likely precipitated by uncontrolled atrial fibrillation.
Avoid aggressive diuresis due to soft blood pressure.
Monitor for need of BiPAP. Pulmonary consulted for underlying bronchiectasis and interstitial lung disease.
03/25
Dropped oxygen on room air.
Repeat chest x ray
03/26
chest x-ray shows:
Prominence of the interstitial markings bilaterally concerning for pulmonary edema versus more likely chronic interstitial lung disease with superimposed bilateral lower lobe pneumonia. Progressed.
Mild cardiomegaly. Stable
Hypoxia improved and currently on room air.
Acute congestive Heart Failure (nonspecific type, combined)
New onset suspected based on elevated BNP, trace edema, and crackles.
Hold IV fluids, provide oxygen, and consider pressors if hypotension persists.
Echocardiogram
1. Normal left ventricular systolic function.
2. Estimated ejection fraction 55 to 60%.
3. Severe tricuspid regurgitation.
4. Estimated PA pressure 52 mmHg.
5. No prior study available for comparison.
S/P Lasix
Held for elevated creatinine
Elevated Troponin
Likely non-ischemic myocardial injury secondary to sepsis, hypoxia, and tachycardia.
Continue anticoagulation,
continue to trend troponin.
Cardiology following.
History of diabetes mellitus
Continue home medication
Insulin sliding scale
Diabetic diet
Hemoglobin A1c 7.5
CODE STATUS: Full code
DVT prophylaxis: Xarelto
Diet: DM diet
Disposition: Continue monitor car operator
Continue sotalol 80 mg daily.
Continue Cardizem 240 mg daily.
Repeat EKG in a.m
Hopefully discharge home with home PT tomorrow if cleared by cardiology.
Total time spent on today's encounter was 65 minutes which included time spent in counseling the patient/family regarding diagnosis and treatment plan as listed above, goals of care, and symptom management. Case was discussed with nursing staff,
specialists, and care coordinators/case management. All labs and imaging personally reviewed by me. Remainder the time spent in detailed review of previous records, lab data, imaging, and other medical provider documentation.
Anticipated Discharge: Within 24 hours
Subjective/Interval History
-
Date of Service: March 27, 2025
Patient still in A-fib but refused cardioversion.
Currently on sotalol/Cardizem
Patient seen and examined at bedside, denies any chest pain , shortness of breath Improved, no abdominal pain, no nausea, no vomiting, no diarrhea or constipation.
Objective Data
-
Labs:
Laboratory Results
03/27/25
07:20
WBC 10.8
Hgb 11.2 L
Hct 34.0 L
Plt Count 315
Sodium 137
Potassium 4.0
Chloride 103
Carbon Dioxide 30
BUN 25 H
Creatinine 0.8
Glucose 112 H
Calcium 9.5
Vital Signs:
Vital Signs
Temp Pulse Resp BP Pulse Ox
97.4 F 109 16 130/73 94
03/27/25 11:27 03/27/25 11:27 03/27/25 11:27 03/27/25 11:27 03/27/25 11:27
I&O
03/26/25 03/27/25 03/28/25
06:59 06:59 06:59
Intake Total 480 / 480 700 / 700
Output Total 550 / 550
Balance -70 / -70 700 / 700
Physical Exam
-
General: Well Developed, Well Nourished, No Apparent Distress and Comfortable
HEENT: Normocephalic, Atraumatic, Moist Mucous Membranes, No Ptosis, PERRLA and Nose Appears Normal
Respiratory: Rales, Rhonchi, Crackles and Non Labored Respirations
Cardiac: S1/S2, Irregular Rhythm and Tachycardic
Breast: Deferred by me
GI: Soft, Nontender, Nondistended and Normal Bowel Sounds
Genito-urinary: No Costovertebral Tender
Musculoskeletal: No Clubbing, No Cyanosis and No Edema
Skin: Warm
Neuro: Awake, Alert, Oriented, AO x 3 and No Motor Deficits
Psych: Calm
[2025-03-27 15:30] VITALS: BP 116/72
--- NOTE | 2025-03-27 15:47 | PTCARENOTE ---
Assumed care of pt from previous nurse. pt denies pain. Pt is on tele running afib. Pt call ty is within reach, pt rings vicenta. will cont to monitor.
[2025-03-27 17:42] LABS: Glucose - Point of Care 230 mg/dl (70-99)
[2025-03-27] MEDS: XARELTO 15 MG PO (17:47)
[2025-03-27] MEDS: NOVOLOG FLEXPEN-MODERATE RESISTANCE 3 UNITS SC (17:48)
[2025-03-27 19:00] VITALS: BP 121/71
[2025-03-27 22:23] LABS: Glucose - Point of Care 198 mg/dl (70-99)
[2025-03-27 23:08] VITALS: BP 147/78
[2025-03-28 03:07] VITALS: BP 127/66
[2025-03-28 07:35] VITALS: BP 131/64
[2025-03-28 07:37] LABS: Glucose - Point of Care 96 mg/dl (70-99)
[2025-03-28] MEDS: NOVOLOG FLEXPEN-MODERATE RESISTANCE SC (07:39)
--- NOTE | 2025-03-28 08:21 | PN.DE.MGMTRT ---
Insulin Management
- -
03/28/2025: Diabetes Management Follow up
89 year old patient admitted 03/21 with respiratory distress, elevated Temp 102, lactic acidosis, sepsis secondary to pneumonia. PMH chronic interstitial lung disease, recurrent pneumonia, chronic bronchitis, HTN, A-Fib. Prior to admission was
taking metformin 500 mg with dinner. A1C 7.5%, cr 1.3, eGFR 39.80.
Patient is very talkative able to discuss diabetes care prior to admission. She states she does not have diabetes and doesn't want it so she eats carefully.
Patient is awake alert and oriented sitting out of bed in chair, no family at bedside.
Patient was on prednisone at home, RX from primary doctor and glucose shot up to > 400.
Currently on tapered dose of Prednisone 10 mg daily, glucose range yesterday 109 to 230, received 1-3 units of corrective insulin with meals.
Fasting glucose 92 V, 96 POC today. Will continue Januvia 100 mg daily with moderate corrective insulin.
Due to lactic acidosis will hold metformin. Occasional glucose excursion is acceptable due to pt's age and comorbidities.
Will follow closely for need for increase in corrective insulin
Diet was decreased from 1800 calorie to 1600 calorie as patient is 4'11'.
Discussed with nurse. Will cont to follow.
Diabetes History
- -
Type of Diabetes: 2
Pre-Admission Diabetes Regimen
03/27/25
07:20
Creatinine 0.8
Lab Results
Hemoglobin A1c 7.5 % (4.0-5.9) H 03/22/25 04:46
Insulin Pump Settings
IP Diabetes Regimen
03/27/25 03/27/25 03/27/25
07:20 12:22 17:34
Glucose 112 H
POC Glucose 183 H 230 H
03/27/25 03/28/25
22:21 07:35
Glucose
POC Glucose 198 H 96
Meal type: Lunch
Amount consumed: 100%
Patient Education
[2025-03-28] MEDS: MIRALAX 17 GRAMS PO (08:29)
[2025-03-28] MEDS: BETAPACE 80 MG PO (08:29)
[2025-03-28] MEDS: JANUVIA 100 MG PO (08:29)
[2025-03-28] MEDS: DELTASONE 10 MG PO (08:30)
[2025-03-28] MEDS: VIBRAMYCIN 100 MG PO ×2 (08:30→20:37)
[2025-03-28] MEDS: VITAMIN B1 100 MG PO (08:31)
[2025-03-28] MEDS: PULMICORT INH ×2 (08:31→08:46)
[2025-03-28] MEDS: CARDIZEM CD 240 MG PO (08:31)
[2025-03-28 08:47] LABS: Hematocrit 35.7 % (37.0-47.0); Hemoglobin 11.9 g/dL (12.0-16.0); Mean Corp Hgb Conc. 33.3 g/dL (33.0-37.0); Mean Corpuscular Volume 89.5 fL (81.0-99.0); Platelet Count 332 10^3/uL (130-400); Red Cell Dist. Width 16.2 % (11.5-14.5)
--- NOTE | 2025-03-28 08:50 | W.PN.HOSP.TC ---
Addendum entered and electronically signed by Eli Mace MD 03/28/25 15:05:
Patient is in need of oxygen on exertion due to pulse oximetry of 95% on room air at rest; 86% on room air with exertion.
Patient was placed on 2L O2 via nasal cannula with saturation of over 90%. Oxygen will help to improve hypoxemia.
Patient is mobile within the home. Albuterol therapy has been discussed and is ineffective in treating hypoxemia-related symptoms.
Oxygen will improve the patient's symptoms.
Original Note:
Today's Communication/Plan
-
appreciate cardiology
dispo planning
Assessment / Plan
Assessment / Plan
Impression:
patient is 89-year-old woman with a history of atrial fibrillation on Xarelto, previously maintained on sotalol, hypertension, interstitial lung disease, diabetes, and prior carotid stenting presented after an episode of near-syncope and decreased
responsiveness. According to her daughter, the patient had been feeling unwell for approximately one week following a recent hospitalization and fall. She was treated with a methylprednisolone taper for respiratory symptoms but developed erratic
heart rates, including bradycardia, leading to discontinuation of sotalol and amlodipine. Over the past several days, she experienced intermittent fevers, chills, and worsening fatigue. On the day of admission, she was found unresponsive at home;
EMS noted atrial fibrillation with rapid ventricular response (HR ~190) and hypotension. She received IV fluids and a bolus of diltiazem, followed by a continuous infusion, with improvement in heart rate. In the ED, she remained somnolent but
arousable, tachycardic (HR 120�150), hypotensive (BP 79�100/42�61), tachypneic (RR low 30s), and hypoxic (SpO? 93% on 2 L). She was febrile earlier at home (101.9�F) but afebrile on arrival. Labs revealed elevated troponin (0.112), BNP (4900),
lactic acid (3.0), mild hyponatremia (Na 130), and anemia (Hgb 10.8). ECG confirmed atrial fibrillation with RVR. Chest imaging showed chronic changes without acute infiltrates. She was admitted to the ICU for rate control and hemodynamic monitoring.
When I saw the patient in the ER her blood pressure and heart rate improved, and she is more awake and oriented.
Patient was still tachycardic, switched Cardizem to oral and increased dose by cardiology, blood pressure improved and cardiology commending diuresis.
Restart sotalol
Patient was hypoxic repeat chest x-ray shows:
Prominence of the interstitial markings bilaterally concerning for pulmonary edema versus more likely chronic interstitial lung disease with superimposed bilateral lower lobe pneumonia. Progressed.
Mild cardiomegaly. Stable
Hypoxia improved and currently on room air.
Heart rate improved but still in A fib
Patient refused cardioversion, continue to monitor sotalol daily EKG.
Assessment/plan:
Atrial Fibrillation with Rapid Ventricular Response
Patient with a history of atrial fibrillation previously managed with sotalol, which was discontinued recently due to bradycardia.
She presented with A-fib with RVR and hypotension.
She is now on Sotalol and oral Cardizem
Maintain anticoagulation with Xarelto.
Obtain echocardiogram (pending)
monitor renal function.
Cardiology consulted appreciate input.
03/22
Increase oral Cardizem
03/24
restarted sotalol
03/25
Heart rate improved
03/26
Heart rate continue to improve but patient still in A-fib.
Follows cardiology recommendations regarding cardioversion
03/27
Patient refusing cardioversion.
Currently on diltiazem to 40 mg daily and sotalol 80 mg daily.
Sepsis with acute organ dysfunction
Sepsis secondary to pneumonia with acute organ dysfunction in form of acute respiratory failure/acute metabolic encephalopathy/lactic acidosis
Initially plan was to admit to IMU for close monitoring. But secondary to hypotension. Patient admitted to the ICU.
Reported fever >101�F at home in the setting of chronic lung disease.
Continue broad-spectrum antibiotic
(Zosyn started in ED), monitor blood cultures, and check Legionella and pneumococcal antigens.
Consulted pulmonology antibiotics switched to Rocephin and doxycycline
Patient completed 3 days of Zosyn, and 3 days with Rocephin antibiotics
Currently on doxycycline to complete 5 days
Mental status improved.
Lactic acid resolved
continue Doxy (last day today)
Acute respiratory failure
Patient remains tachypneic with RR in the 30s, requiring supplemental oxygen.
Elevated BNP and crackles suggest new-onset CHF, likely precipitated by uncontrolled atrial fibrillation.
Avoid aggressive diuresis due to soft blood pressure.
Monitor for need of BiPAP. Pulmonary consulted for underlying bronchiectasis and interstitial lung disease.
03/25
Dropped oxygen on room air.
Repeat chest x ray
03/26
chest x-ray shows:
Prominence of the interstitial markings bilaterally concerning for pulmonary edema versus more likely chronic interstitial lung disease with superimposed bilateral lower lobe pneumonia. Progressed.
Mild cardiomegaly. Stable
Hypoxia improved and currently on room air.
Acute congestive Heart Failure (nonspecific type, combined)
New onset suspected based on elevated BNP, trace edema, and crackles.
Hold IV fluids, provide oxygen, and consider pressors if hypotension persists.
Echocardiogram
1. Normal left ventricular systolic function.
2. Estimated ejection fraction 55 to 60%.
3. Severe tricuspid regurgitation.
4. Estimated PA pressure 52 mmHg.
5. No prior study available for comparison.
S/P Lasix
Held for elevated creatinine
Elevated Troponin
Likely non-ischemic myocardial injury secondary to sepsis, hypoxia, and tachycardia.
History of diabetes mellitus
Continue home medication
Insulin sliding scale
Diabetic diet
Hemoglobin A1c 7.5
CODE STATUS: Full code
DVT prophylaxis: Xarelto
Diet: DM diet
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
Continue sotalol 80 mg daily.
Continue Cardizem 240 mg daily.
Total time spent on today's encounter was 65 minutes which included time spent in counseling the patient/family regarding diagnosis and treatment plan as listed above, goals of care, and symptom management. Case was discussed with nursing staff,
specialists, and care coordinators/case management. All labs and imaging personally reviewed by me. Remainder the time spent in detailed review of previous records, lab data, imaging, and other medical provider documentation.
Anticipated Discharge: Within 24 hours
Subjective/Interval History
-
Date of Service: March 28, 2025
feeling okay
no chest pain or palpitations
Objective Data
-
Labs:
Laboratory Results
03/28/25
07:50
WBC 11.9 H
Hgb 11.9 L
Hct 35.7 L
Plt Count 332
Sodium Pending
Potassium Pending
Chloride Pending
Carbon Dioxide Pending
BUN Pending
Creatinine Pending
Glucose Pending
Calcium Pending
Vital Signs:
Vital Signs
Temp Pulse Resp BP Pulse Ox
97.3 F 78 18 131/64 93
03/28/25 07:35 03/28/25 08:34 03/28/25 08:34 03/28/25 08:31 03/28/25 08:34
I&O
03/27/25 03/28/25 03/29/25
06:59 06:59 06:59
Intake Total 700 / 700 1560 / 1560
Balance 700 / 700 1560 / 1560
Review of Systems
-
History Source: Patient
All other systems: Reviewed and negative
Physical Exam
-
General: Well Developed, Well Nourished, No Apparent Distress and Comfortable
HEENT: Normocephalic, Atraumatic, Moist Mucous Membranes, No Ptosis, PERRLA and Nose Appears Normal
Respiratory: Rales, Rhonchi, Crackles and Non Labored Respirations
Cardiac: S1/S2, Irregular Rhythm and Tachycardic
Breast: Deferred by me
GI: Soft, Nontender, Nondistended and Normal Bowel Sounds
Genito-urinary: No Costovertebral Tender
Musculoskeletal: No Clubbing, No Cyanosis and No Edema
Skin: Warm
Neuro: Awake, Alert, Oriented, AO x 3 and No Motor Deficits
Psych: Calm
Data Reviewed
-
Diagnostic Radiology: Report Reviewed by me
Labs: Labs Reviewed by me
--- NOTE | 2025-03-28 09:10 | CM ---
Addendum entered by Nadine Dinh 03/28/25 11:48:
Spoke with son German, he says he is POA, will bring in forms if he can find them. per son, patient can stay with him. His is a nurse. They want patient to sell her home so they can all live together. Son is home today and either he or spouse
will be home with patient once discharged. patient has had VN in the past, he is not sure which VN.
Addendum entered by Nadine Dinh 03/28/25 10:45:
TC to German Smith, did not have time to speak at this time, will call back.
Addendum entered by Nadine Dinh 03/28/25 09:17:
Need to verify if brother is POA.
Original Note:
TC from daughter Rachel wanted to discuss d/c plan.
Per daughter she cannot take mother home with her as she has her own medical problems.
Daughter thought mom would go to skilled rehab for a while.
CM reviewed PT recommendations and went over options such as home with VN and private care givers, LTC and private pay and assisted living and private pay.
Daughter voiced understanding and thinks her mom needs more help at home and possibly home oxygen.
Daughter will have her brother call to discuss as he is the POA.
[2025-03-28 09:30] LABS: Blood Urea Nitrogen 19 mg/dl (7-17); Calcium 9.1 mg/dl (8.4-10.2); Carbon Dioxide 31 mmol/L (22-30); Chloride 99 mmol/L (98-107); Estimated Creatinine Clearance 34 ml/min; Glucose 92 mg/dl (70-99); Potassium 3.6 mmol/L (3.5-5.1); Sodium 136 mmol/L (135-145); eGFR > 60.00
--- NOTE | 2025-03-28 09:55 | PTOTSP ---
Speech Language Pathology
Pt seen for dysphagia tx. Reviewed results/recommendations from VSE completed 03/21, including current diet level of IDDSI 6. Pt reported significant dislike for diet, as she is unable to order many items that she typically eats at home. Placed
upper and lower partial denture plates. She reported she is waiting to get her new dentures from [facility], as she was fitted there approximately 1 month ago. Slightly prolonged mastication with regular solids, but this was functional
given additional time. Reviewed some pharyngeal residue noted on VSE and need for slow rate/small bites with regular solids. Noted to take single sips and reinforce importance of this. Prognosis for diet tolerance is fair.
Recommend:
(1) Upgrade to regular solids/thin liquids
(2) Aspiration precautions: sit upright, slow rate, single sips only, chew thoroughly
(3) Meds whole in puree, can crush large pills if needed
(4) SALT MAKER to continue to follow
[2025-03-28 11:38] VITALS: BP 121/63
[2025-03-28 12:22] LABS: Glucose - Point of Care 189 mg/dl (70-99)
[2025-03-28] MEDS: NOVOLOG FLEXPEN-MODERATE RESISTANCE 1 UNITS SC (13:19)
--- NOTE | 2025-03-28 14:57 | CM ---
Addendum entered by Hina Ramos 03/28/25 15:57:
Home O2 assessment completed. Patient will need home O2. Discussed with patient and her son, German. Home O2 ordered through [facility].
Original Note:
CM met with patient. Discussed PT recommendation for home health upon d/c. Patient has had home health inm the past but can not recall name of agency.Provided patient with options for home health agencies. Referral made to [facility], but unable to
accept referral. Referral also made to [facility]- waiting to see if patient is accepted. IMM given to patient.
Patient is planning to d/c to son, German Smith's homeat [address] [place] [id number] (tel#[phone]). Patient has requested to have sonGerman added to her record as primary contact - CM notified Admissions Dept.
Plan: home with son, Home health through [facility] Includes [facility] if accepted.
[2025-03-28 15:45] VITALS: BP 112/57
--- NOTE | 2025-03-28 15:57 | W.DCSUMMARY ---
Discharge Summary
Discharge Data
Date of Admission: 03/21/25
Date of Discharge: 03/29/25
-
Pending Results: No
Hospital Course
Discharging Physician : Dr. Eli Mace
Disposition : [facility] with Home Health
Primary care physician :
Principal Discharge diagnosis : atrial fibrillation with rapid ventricular response; Sepsis secondary to pneumonia, acute respiratory failure with concern for pneumonia and possible ILD flare
Hospital Course :
Ms. Lina Smith is a 89 yo woman with history of atrial fibrillation on Xarelto, essential HTN, HLD, NIDDM, hx recurrent lung infection wtih decline post Covid, recent treatment for cough with methylprednisolone taper and discontinuation of Sotalol
presents to the ER with fever and chills followed by an episode of unresponsiveness. When EMS arrived she was found to be tachycardic to 190 in atrial fibrillation. She was given a fluid bolus and bolus of IV Cardizem.
Upon arrival to the ER patient was somnolent but easily arousable. Blood pressure ranged from 79-100/ 42-61. She was tachycardic to the 120s to 150s. She was tachypneic to to low 30s. Temperature was 98.0 and she was satting around 93% on 2 L.
ECG shows atrial fibrillation with RVR at a rate of 149. Troponin was elevated at 0.112. BNP was also elevated at 4900. WBC was 9.5 hemoglobin 10.8 platelet of 214. Electrolytes show a sodium of 130 with potassium of 3.5 bicarb of 21 with a BUN
and creatinine of 21 and 1.0 and a glucose of 216. Lactic acid was 3.0. CXR with finding of interstitial fibrosis and concern for left lung base pneumonia.
Patient became progressively hypotensive and was admitted to the ICU. Hypotension responsive to fluids and better rate control.
Regarding Atrial fibrillation with RVR, she was started on IV Cardizem gtt. She was transitioned to oral Diltiazem and her home Sotalol was resumed. She was continued on Xarelto. She was offered cardioversion here but prefers to follow up with
her outpatient Per Diem Physical Therapist Assistant. Her rates were stable on Diltiazem 240mg PO QD + Sotalol 80mg PO QD.
Patient completed an antibiotic course for pneumonia. She was also prescribed a steroid taper for ILD flare and has one remaining day of Prednisone 10mg at discharge.
Patient's respiratory status improved post antibiotics and steroids. She requires 2L with ambulation and this is set up at discharge.
Home health arranged on discharge.
Time spent on discharge was 45 minutes.
Important imaging findings :
CXR 03/21/25
IMPRESSION:
1. Findings suggestive of moderate interstitial fibrosis.
2. Hazy opacity at the left lung base. Differential diagnosis includes pneumonia, aspiration, and focal interstitial fibrosis.
Echocardiogram
1. Normal left ventricular systolic function.
2. Estimated ejection fraction 55 to 60%.
3. Severe tricuspid regurgitation.
4. Estimated PA pressure 52 mmHg.
5. No prior study available for comparison.
Procedure findings :
Discharge Plan
-
Patient Disposition: Home with Home Care
Discharge Diagnosis/Procedures: atrial fibrillation with rapid ventricular response; Sepsis secondary to pneumonia, acute respiratory failure with concern for pneumonia and possible ILD flare
Diet: Regular
Activity: As tolerated
Driving Restrictions: No driving
Bathing Restrictions: None
Other Services: VN, PT and OT
Referrals:
PRIVATE,PHYSICIAN [Family Provider, Internal Medicine]
Additional Discharge Medication Instructions: Follow up with your Refrigerating Oiler, Dr. Daugherty, at next available appointment and your Per Diem Physical Therapist Assistant, Dr. David, at next available appointment.
STOP AMLODIPINE.
You are resumed on Sotalol 80mg daily and started on Diltiazem 240mg daily to help with heart rate control. Please have further discussions with your hand stamper about cardioversion.
DECREASE Lipitor dosing from 40mg to 20mg (Diltiazem can increase levels of Lipitor in body).
Continue Xarelto. Aspirin is stopped to decrease bleeding risk.
You have one more day of steroids (tomorrow) to complete steroid course for interstitial lung disease flare.
STOP Metformin. This is replaced with Januvia for treatment of diabetes.
Use 2L oxygen with ambulation.
Prescriptions:
New
sotalol 80 mg Tablet
80 mg PO DAILY Qty: 30 0RF
diltiazem HCl 240 mg Capsule,Extended Release 24hr
240 mg PO DAILY Qty: 30 0RF
prednisone 10 mg Tablet
10 mg PO DAILY Qty: 1 0RF
Rx Instructions:
Take last dose morning of 03/30/25
Januvia 100 mg Tablet
100 mg PO DAILY Qty: 30 0RF
atorvastatin [Lipitor] 20 mg tablet
20 mg PO HS Qty: 30 0RF
Continued
Xarelto 15 mg Tablet
15 mg PO QPM
ipratropium-albuterol 0.5 mg-3 mg(2.5 mg base)/3 mL Solution For Nebulization
3 ml INHALATION R TID
cyanocobalamin (vitamin B-12) 1,000 mcg Tablet
1,000 mcg PO DAILY
thiamine HCl (vitamin B1) 100 mg Tablet
100 mg PO DAILY
docusate sodium [Colace] 100 mg Capsule
100 mg PO BIDPRN PRN (Reason: constipation)
budesonide 0.25 mg/2 mL Suspension For Nebulization
0.25 mg INHALATION R BID
Discontinued
atorvastatin 40 mg Tablet
40 mg PO HS
metformin 500 mg Tablet
500 mg PO QPM
sotalol 80 mg Tablet
80 mg PO DAILY
amlodipine 10 mg Tablet
10 mg PO DAILY
aspirin 81 mg Tablet
81 mg PO DAILY
Discharge Orders:
Discharge Patient (As Directed); Ordered 03/29/25
Ordered By: Eli Mace
Discharge Date and Time
Print Language: DIVEHI
--- NOTE | 2025-03-28 16:53 | W.PN.CD ---
Today's Communication / Plan
-
she declines repeat cardioversion but wants to stay on sotalol
=> she will discuss with her customs and border protection officer has f/u with her customs and border protection officer on 04/01
Cardiology will sign off
Impression / Plan
-
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
-with suspected PNA this admission: improved
Persistent AFib
- 100% AFib here
- Rates were fast, now rates OK
- On Xarelto 15mg daily, in setting of CrCl under 50
- Has had cardioversions in the past, has been on sotalol in the past => she declines repeat cardioversion but wants to stay on sotalol => she will discuss with her customs and border protection officer has f/u with her customs and border protection officer on 04/01
- Last known to have been in sinus on 01/12/2025 by Epic Chart Review by CHRIS Hoffman
- Dr. Alonso started sotalol 80 mg one time daily, first dose 03/24/2025 (daily renal dosing)
-cont diltiazem ER 240mg daily
-she does not want DCCV here:
Pulmonary HTN, here est PASP 52 mmHg => suspect from lung disease, could be mixed etiology
Nonischemic myocardial injury from suspected infection, fever, low BP, elevated lactic acid, fast AFib, peak trop 0.221 on 03/21/2025
Hx of carotid stenting
HTN
DM
Data:
Echo 03/21/2025:
SUMMARY
1. Normal left ventricular systolic function.
2. Estimated ejection fraction 55 to 60%.
3. Severe tricuspid regurgitation.
4. Estimated PA pressure 52 mmHg.
5. No prior study available for comparison.
CXR
IMPRESSION:
1. Findings suggestive of moderate interstitial fibrosis.
2. Hazy opacity at the left lung base. Differential diagnosis includes pneumonia, aspiration, and focal interstitial fibrosis.
Physical Exam
Vital Signs/Labs
Vital Signs
Temp Pulse Resp BP Pulse Ox
97.7 F 66 20 112/57 96
03/28/25 15:45 03/28/25 15:45 03/28/25 15:45 03/28/25 15:45 03/28/25 15:45
03/27/25 03/28/25 03/29/25
06:59 06:59 06:59
Actual Weight 50.491 kg
03/28/25 07:50
03/28/25 07:50
PT 40.4 Sec (11.4-14.6) H 03/21/25 09:05
INR 4.15 03/21/25 09:05
APTT 47.1 Sec (23.4-35.0) H 03/21/25 09:05
Magnesium 2.2 mg/dl (1.6-2.3) 03/22/25 04:46
03/21/25
03:25
Ypr-D-Hkkemyafftr Pept 4940
Physical Exam
Constitutional: No acute distress
EENT: Anicteric
Cardiovascular: Rhythm/rate is irregular and S1S2 is normal
Respiratory: Respiratory effort normal and Crackles Present
GI: Soft and Distention absent
Neuro/Psych: Alert
Data Reviewed
-
Date of Service: March 28, 2025
[2025-03-28] MEDS: XARELTO 15 MG PO (17:29)
[2025-03-28 17:43] LABS: Glucose - Point of Care 219 mg/dl (70-99)
[2025-03-28] MEDS: NOVOLOG FLEXPEN-MODERATE RESISTANCE 3 UNITS SC (17:48)
[2025-03-28] MEDS: PULMICORT 0.25 MG INH (17:53)
[2025-03-28 19:00] VITALS: BP 121/65
[2025-03-28 21:06] LABS: Glucose - Point of Care 179 mg/dl (70-99)
[2025-03-28 23:31] VITALS: BP 123/74
[2025-03-29 03:03] VITALS: BP 126/69
[2025-03-29 07:30] VITALS: BP 133/68
[2025-03-29 07:37] LABS: Glucose - Point of Care 83 mg/dl (70-99)
[2025-03-29] MEDS: PULMICORT 0.25 MG INH (08:14)
[2025-03-29] MEDS: NOVOLOG FLEXPEN-MODERATE RESISTANCE SC ×2 (08:22→16:14)
[2025-03-29] MEDS: VITAMIN B1 100 MG PO (09:10)
[2025-03-29] MEDS: BETAPACE 80 MG PO (09:10)
[2025-03-29] MEDS: MIRALAX 17 GRAMS PO (09:11)
[2025-03-29] MEDS: DELTASONE 10 MG PO (09:11)
[2025-03-29] MEDS: CARDIZEM CD 240 MG PO (09:11)
[2025-03-29] MEDS: JANUVIA 100 MG PO (09:11)
--- NOTE | 2025-03-29 11:02 | W.PN.HOSP.TC ---
Addendum entered and electronically signed by Eli Mace MD 03/29/25 16:17:
ETHAN, resolved
Original Note:
Today's Communication/Plan
-
OK for DC today
Assessment / Plan
Assessment / Plan
Impression:
patient is 89-year-old woman with a history of atrial fibrillation on Xarelto, previously maintained on sotalol, hypertension, interstitial lung disease, diabetes, and prior carotid stenting presented after an episode of near-syncope and decreased
responsiveness. According to her daughter, the patient had been feeling unwell for approximately one week following a recent hospitalization and fall. She was treated with a methylprednisolone taper for respiratory symptoms but developed erratic
heart rates, including bradycardia, leading to discontinuation of sotalol and amlodipine. Over the past several days, she experienced intermittent fevers, chills, and worsening fatigue. On the day of admission, she was found unresponsive at home;
EMS noted atrial fibrillation with rapid ventricular response (HR ~190) and hypotension. She received IV fluids and a bolus of diltiazem, followed by a continuous infusion, with improvement in heart rate. In the ED, she remained somnolent but
arousable, tachycardic (HR 120�150), hypotensive (BP 79�100/42�61), tachypneic (RR low 30s), and hypoxic (SpO? 93% on 2 L). She was febrile earlier at home (101.9�F) but afebrile on arrival. Labs revealed elevated troponin (0.112), BNP (4900),
lactic acid (3.0), mild hyponatremia (Na 130), and anemia (Hgb 10.8). ECG confirmed atrial fibrillation with RVR. Chest imaging showed chronic changes without acute infiltrates. She was admitted to the ICU for rate control and hemodynamic monitoring.
When I saw the patient in the ER her blood pressure and heart rate improved, and she is more awake and oriented.
Patient was still tachycardic, switched Cardizem to oral and increased dose by cardiology, blood pressure improved and cardiology commending diuresis.
Restart sotalol
Patient was hypoxic repeat chest x-ray shows:
Prominence of the interstitial markings bilaterally concerning for pulmonary edema versus more likely chronic interstitial lung disease with superimposed bilateral lower lobe pneumonia. Progressed.
Mild cardiomegaly. Stable
Hypoxia improved and currently on room air.
Heart rate improved but still in A fib
Patient refused cardioversion, continue to monitor sotalol daily EKG.
Assessment/plan:
Atrial Fibrillation with Rapid Ventricular Response
Patient with a history of atrial fibrillation previously managed with sotalol, which was discontinued recently due to bradycardia.
She presented with A-fib with RVR and hypotension.
She is now on Sotalol and oral Cardizem
Maintain anticoagulation with Xarelto.
TTE results:
SUMMARY
1. Normal left ventricular systolic function.
2. Estimated ejection fraction 55 to 60%.
3. Severe tricuspid regurgitation.
4. Estimated PA pressure 52 mmHg.
5. No prior study available for comparison.
monitor renal function.
Cardiology consulted appreciate input.
03/22
Increase oral Cardizem
03/24
restarted sotalol
03/25
Heart rate improved
03/26
Heart rate continue to improve but patient still in A-fib.
Follows cardiology recommendations regarding cardioversion
03/27
Patient refusing cardioversion.
Currently on diltiazem to 40 mg daily and sotalol 80 mg daily.
Sepsis with acute organ dysfunction
Sepsis secondary to pneumonia with acute organ dysfunction in form of acute respiratory failure/acute metabolic encephalopathy/lactic acidosis
Initially plan was to admit to IMU for close monitoring. But secondary to hypotension. Patient admitted to the ICU.
Reported fever >101�F at home in the setting of chronic lung disease.
Continue broad-spectrum antibiotic
(Zosyn started in ED), monitor blood cultures, and check Legionella and pneumococcal antigens.
Consulted pulmonology antibiotics switched to Rocephin and doxycycline
Patient completed 3 days of Zosyn, and 3 days with Rocephin antibiotics
Currently on doxycycline to complete 5 days - completed 03/28
Mental status improved.
Lactic acid resolved
Acute respiratory failure
Patient remains tachypneic with RR in the 30s, requiring supplemental oxygen.
Monitor for need of BiPAP. Pulmonary consulted for underlying bronchiectasis and interstitial lung disease - patient prescribed a steroid taper - continue on DC
Diurese resulted in mild ETHAN, now improved
03/25
Dropped oxygen on room air.
Repeat chest x ray
03/26
chest x-ray shows:
Prominence of the interstitial markings bilaterally concerning for pulmonary edema versus more likely chronic interstitial lung disease with superimposed bilateral lower lobe pneumonia. Progressed.
Mild cardiomegaly. Stable
Hypoxia improved and currently on room air.
Acute congestive Heart Failure (nonspecific type, combined)
New onset suspected based on elevated BNP, trace edema, and crackles.
Hold IV fluids, provide oxygen, and consider pressors if hypotension persists.
Echocardiogram
1. Normal left ventricular systolic function.
2. Estimated ejection fraction 55 to 60%.
3. Severe tricuspid regurgitation.
4. Estimated PA pressure 52 mmHg.
5. No prior study available for comparison.
S/P Lasix
Held for elevated creatinine
Elevated Troponin
Likely non-ischemic myocardial injury secondary to sepsis, hypoxia, and tachycardia.
History of diabetes mellitus
Continue home medication
Insulin sliding scale
Diabetic diet
Hemoglobin A1c 7.5
CODE STATUS: Full code
DVT prophylaxis: Xarelto
Diet: DM diet
Disposition: Continue ehs specialist
Continue sotalol 80 mg daily.
Continue Cardizem 240 mg daily.
Total time spent on today's encounter was 65 minutes which included time spent in counseling the patient/family regarding diagnosis and treatment plan as listed above, goals of care, and symptom management. Case was discussed with nursing staff,
specialists, and care coordinators/case management. All labs and imaging personally reviewed by me. Remainder the time spent in detailed review of previous records, lab data, imaging, and other medical provider documentation.
Anticipated Discharge: Today
Subjective/Interval History
-
Date of Service: March 29, 2025
patient is feeling okay, HR 90's low 100's
Objective Data
-
Vital Signs:
Vital Signs
Temp Pulse Resp BP Pulse Ox
97.7 F 102 16 133/68 93
03/29/25 07:30 03/29/25 09:10 03/29/25 08:17 03/29/25 09:10 03/29/25 08:17
I&O
03/28/25 03/29/25 03/30/25
06:59 06:59 06:59
Intake Total 1560 / 1560 900 / 900
Balance 1560 / 1560 900 / 900
Review of Systems
-
History Source: Patient
All other systems: Reviewed and negative
Physical Exam
-
General: Well Developed, Well Nourished, No Apparent Distress and Comfortable
HEENT: Normocephalic, Atraumatic, Moist Mucous Membranes, No Ptosis, PERRLA and Nose Appears Normal
Respiratory: Rales, Rhonchi, Crackles and Non Labored Respirations
Cardiac: S1/S2, Irregular Rhythm and Tachycardic
Breast: Deferred by me
GI: Soft, Nontender, Nondistended and Normal Bowel Sounds
Genito-urinary: No Costovertebral Tender
Musculoskeletal: No Clubbing, No Cyanosis and No Edema
Skin: Warm
Neuro: Awake, Alert, Oriented, AO x 3 and No Motor Deficits
Psych: Calm
Data Reviewed
-
Diagnostic Radiology: Report Reviewed by me
Labs: Labs Reviewed by me
--- NOTE | 2025-03-29 11:22 | W.DS.TRANS ---
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
-
Discharge Instructions:
Discharge Diagnosis/Procedures atrial fibrillation with rapid ventricular
response; Sepsis secondary to pneumonia, acute
respiratory failure with concern for pneumonia
and possible ILD flare
Diet Regular
Activity As tolerated
Driving Restrictions No driving
Bathing Restrictions None
Other Services PT,VN,OT
Instructions:
Stand-Alone Forms:
Changes to Home Medications: Yes
Discharge Medications:
DC Medications w/original date entered in [id number]
budesonide 0.25 mg/2 mL suspension for nebulization 0.25 mg inhalation R BID Lung/Breathing Issues 03/21/25
cyanocobalamin (vitamin B-12) 1,000 mcg tablet 1,000 mcg PO DAILY Supplement 03/21/25
docusate sodium 100 mg capsule (Colace) 100 mg PO BIDPRN PRN constipation 03/21/25
ipratropium 0.5 mg-albuterol 3 mg (2.5 mg base)/3 mL nebulization soln 3 ml inhalation R TID Lung/Breathing Issues 03/21/25
rivaroxaban 15 mg tablet (Xarelto) 15 mg PO QPM Blood Clot Prevention/Tx 03/21/25
thiamine HCl (vitamin B1) 100 mg tablet 100 mg PO DAILY Supplement 03/21/25
atorvastatin 20 mg tablet (Lipitor) 20 mg PO HS #30 tabs 03/29/25
diltiazem HCl 240 mg capsule,extended release 24 hr 240 mg PO DAILY #30 caps 03/29/25
prednisone 10 mg tablet 10 mg PO DAILY #1 tab 03/29/25
sitagliptin phosphate 100 mg tablet (Januvia) 100 mg PO DAILY #30 tabs 03/29/25
sotalol 80 mg tablet 80 mg PO DAILY #30 tabs 03/29/25
Home Medication Changes
STOP AMLODIPINE.
You are resumed on Sotalol 80mg daily and started on Diltiazem 240mg daily to help with heart rate control. 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
DECREASE Lipitor dosing from 40mg to 20mg (Diltiazem can increase levels of Lipitor in body).
Continue Xarelto. Aspirin is stopped to decrease bleeding risk.
You have one more day of steroids (tomorrow) to complete steroid course for interstitial lung disease flare.
STOP Metformin. This is replaced with Januvia for treatment of diabetes.
Pending Results: No
[2025-03-29 11:45] VITALS: BP 137/73
[2025-03-29 12:26] LABS: ALT (SGPT) 75 U/L (0-35); AST (SGOT) 32 U/L (14-36); Alkaline Phosphatase 114 U/L (38-126)
--- NOTE | 2025-03-29 13:00 | PN.DE.MGMTRT ---
Insulin Management
- -
03/29/2025: Diabetes Management Follow up
89 year old patient admitted 03/21 with respiratory distress, elevated Temp 102, lactic acidosis, sepsis secondary to pneumonia. PMH chronic interstitial lung disease, recurrent pneumonia, chronic bronchitis, HTN, A-Fib. Prior to admission was
taking metformin 500 mg with dinner. A1C 7.5%, cr 1.3, eGFR 39.80.
Patient is very talkative able to discuss diabetes care prior to admission. She states she does not have diabetes and doesn't want it so she eats carefully.
Patient is awake alert and oriented sitting out of bed in chair, no family at bedside.
Patient was on prednisone at home, RX from primary doctor and glucose shot up to > 400.
Currently on tapered dose of Prednisone 10 mg daily, glucose range yesterday 96 to 219, received 1-3 units of corrective insulin with meals.
Fasting glucose today 83 today. Will continue Januvia 100 mg daily with moderate corrective insulin.
Due to lactic acidosis will hold metformin. Occasional glucose excursion is acceptable due to pt's age and comorbidities.
Patient for possible discharge today.
Discussed with nurse. Will cont to follow.
Diabetes History
- -
Type of Diabetes: 2
Pre-Admission Diabetes Regimen
Lab Results
Hemoglobin A1c 7.5 % (4.0-5.9) H 03/22/25 04:46
Insulin Pump Settings
IP Diabetes Regimen
03/28/25 03/28/25 03/29/25
17:41 21:05 07:30
POC Glucose 219 H 179 H 83
Meal type: Breakfast
Meal type: Dinner
Meal type: Lunch
Amount consumed: 100%
Amount consumed: 100%
Amount consumed: 100%
Patient Education
[2025-03-29 13:42] LABS: Glucose - Point of Care 217 mg/dl (70-99)
[2025-03-29] MEDS: NOVOLOG FLEXPEN-MODERATE RESISTANCE 3 UNITS SC (13:55)
--- NOTE | 2025-03-29 15:17 | PN.CDI ---
CDI
- -
CDI:
Physician Documentation Request
Admit Date: 03/21/25 06:14
Dear Doctor Rodri,
Clinical Indicators:
Patient admitted with sepsis and AF w/RVR.
03/28 PN, 'S/P Lasix Held for elevated creatinine'
Cr/GFR trend:
03/25/25 03/27/25 03/28/25
05:10 07:20 07:50
Creatinine 1.3 H 0.8 0.8
eGFR 39.80 > 60.00 > 60.00
Please clarify which of the following accurately represents the patient's renal status:
ETHAN, resolved
Elevated creatinine only
Other, please specify
Criteria for ETHAN*
1 Increase in serum creatinine by > or = to 0.3 mg/dL (> or = to 26.5 micromol/L) within 48 hours, OR
2 Increase in serum creatinine to > or = to 1.5 times baseline, which is known or presumed to have occurred within 7 days, OR
3 Urine volume < 0.5 nL/kg/hour for six hours
Use of terms such as suspected, likely, concern for, or probable (associated with a specific diagnosis that is being evaluated, monitored, or treated as if it exists) are acceptable and can be coded in the inpatient setting, when documented at the
time of discharge.
Thank you,
ОЛЬГА Sage RN
CDI Specialist
available via tiger text
Please use your independent medical judgment in providing your response.
*Source: Kidney Disease: Improving Global Outcomes (KDIGO) 2012
[2025-03-29 15:38] LABS: Glucose - Point of Care 199 mg/dl (70-99)
--- NOTE | 2025-03-29 15:44 | CM ---
Patient is for discharge home today. She will be staying with her son after d/c. Portable O2 tank has been delivered to patient's room from [facility]. Son will call [facility] re delivery concentrator to home. Patient has been referred to [facility] for
home health. Son will provide transport home at 6pm.
Plan: d/c home today with son, [facility] fax#[phone]
[2025-03-29 15:49] VITALS: BP 120/61
[2025-03-29] MEDS: XARELTO 15 MG PO (17:06)
[2025-03-29 19:16] VITALS: BP 120/70
--- NOTE | 2025-03-29 20:10 | PTCARENOTE ---
Pt discharged approx 2009 via wheel chair to main lobby entrance/exit with family member. Pt belongings and discharge instructions explained and given to pt. Pt cooperative with discharge process. Pt AAOx3 at discharge, see VS, stable.
== END 2025-03-29 20:10 | disposition home health service (06) | DRG 871 ==
LOC: 4 WEST ACU 06:14
PROVIDERS: General Practice; Nurse Practitioner Gerontology; ADMITTING PHYSICIAN Internal Medicine; ATTENDING PHYSICIAN Student in an Organized Health Care Education/Training Program; CONSULT PHYSICIAN Internal Medicine Critical Care Medicine; EMERGENCY PHYSICIAN Emergency Medicine; OTHER PHYSICIAN Internal Medicine Cardiovascular Disease
DX: A41.9 Sepsis, unspecified organism (principal); G93.41 Metabolic encephalopathy; J96.01 Acute respiratory failure with hypoxia; J18.9 Pneumonia, unspecified organism; I50.41 Acute combined systolic (congestive) and diastolic (congestive) heart failure; I48.20 Chronic atrial fibrillation, unspecified; E87.20 Acidosis, unspecified; I24.89 Other forms of acute ischemic heart disease; I5A Non-ischemic myocardial injury (non-traumatic); E87.1 Hypo-osmolality and hyponatremia; N17.9 Acute kidney failure, unspecified; E11.65 Type 2 diabetes mellitus with hyperglycemia; Z79.01 Long term (current) use of anticoagulants; I11.0 Hypertensive heart disease with heart failure; E83.42 Hypomagnesemia; I95.89 Other hypotension; R65.20 Severe sepsis without septic shock; Z79.82 Long term (current) use of aspirin; Z87.01 Personal history of pneumonia (recurrent); Z11.52 Encounter for screening for COVID-19
CPT/HCPCS: 71045; 74230; 80048; 80053; 81003; 81015; 82247; 82533; 82962; 83036; 83605; 83690; 83735; 83880; 84075; 84100; 84145; 84443; 84450; 84460; 84484; 85025; 85027; 85610; 85730; 87040; 87070; 87205; 87449; 87502; 87807; 87811; 87899; 92526; 92610; 92611; 93005; 93306; 94640; 96365; 96375; 97116; 97162; 99291